=== PATIENT | female | born 1940 | race Caucasian/White ===

== ENCOUNTER 2021-02-19 05:59 | Inpatient (IN) | payer MEDICARE, BC ==
[2021-02-19] MEDS ORDERED: IBUPROFEN 600 MG TAB PO STA (06:29)
[2021-02-19] MEDS ORDERED: ACETAMINOPHEN TAB 500 MG TAB PO STA (06:29)
--- NOTE | 2021-02-19 06:34 | ED ---
General Adult HPI <DequanNaif - Last Filed: 02/19/21 08:28> - General Source: EMS Mode of arrival: EMS Limitations: no limitations <Tee Diop - Last Filed: 02/19/21 08:45> - General Chief complaint: Weakness Stated complaint: Fever, weakness Time Seen by Provider: 02/19/21 06:11 - History of Present Illness Initial comments: 80 year old F with PMH HTN HLD presents to the ER for weakness. Patient states she woke up this morning and was feeling more weak than normal. States she also feels very cold. Patient has not taken any medications. Patient does admit to some nausea but denies vomiting or abdominal pain. Patient denies cough congestion sore throat. Patient did get her COVID vaccine. Patient denies any other symptoms such as CP, SOB, MEDINA. (Tee Diop) - Related Data Home Medications Medication Instructions Recorded Confirmed Aspirin 81 mg PO DAILY 03/13/16 06/08/16 Ergocalciferol [Vitamin D2] 50,000 unit PO Q14D 03/13/16 06/08/16 lisinopriL [Zestril] 10 mg PO DAILY 03/13/16 06/08/16 Meclizine [Antivert] 12.5 mg PO BID PRN 04/14/16 06/08/16 Magnesium Oxide 500 mg PO DAILY 06/02/16 06/08/16 Naproxen Sodium [Aleve] 220 mg PO BID PRN 06/02/16 06/02/16 Pravastatin Sodium [Pravachol] 10 mg PO DAILY 06/02/16 06/08/16 Previous Rx's Medication Instructions Recorded Spironolactone [Aldactone] 25 mg PO DAILY #1 tablet 04/17/16 Metoprolol Succinate (ER) [Toprol 25 mg PO DAILY #30 tab 06/09/16 XL] Allergies Allergy/AdvReac Type Severity Reaction Status Date / Time Penicillins Allergy Rash/Hives Verified 02/19/21 06:10 metal Allergy pain(had Uncoded 02/19/21 06:10 reaction to knee implant) Review of Systems ROS Other: All systems not noted in ROS Statement are negative. <Naif Baires - Last Filed: 02/19/21 08:28> ROS Other: All systems not noted in ROS Statement are negative. <Tee Diop - Last Filed: 02/19/21 08:45> ROS Statement: Those systems with pertinent positive or pertinent negative responses have been documented in the HPI. Past Medical History Past Medical History: Coronary Artery Disease (CAD), Hyperlipidemia, Hypert ension, Osteoarthritis (OA) Additional Past Medical History / Comment(s): UTI's, see Dr Spears H & P, Menjeanettere's Disease History of Any Multi-Drug Resistant Organisms: None Reported Past Surgical History: Breast Surgery, Cardiac Ablation, Coronary Bypass/CABG, Heart Catheterization, Hysterectomy, Joint Replacement, Orthopedic Surgery Additional Past Surgical History / Comment(s): cataracts removed, left knee replaced, arthroscopy knee, bilateral shoulder surg., heel spur removed, breast reduction, double bypass, blepharoplasty,3rd digit lt hand repair Past Anesthesia/Blood Transfusion Reactions: Motion Sickness, Postoperative Nausea & Vomiting (PONV) Additional Past Anesthesia/Blood Transfusion Reaction / Comment(s): no problems with prior blood transfusion. Past Psychological History: No Psychological Hx Reported Past Alcohol Use History: None Reported Past Drug Use History: None Reported - Past Family History Sister(s) Family Medical History: Cancer Mother Family Medical History: Coronary Artery Disease (CAD), Diabetes Mellitus Father Family Medical History: Coronary Artery Disease (CAD) Brother(s) Family Medical History: Myocardial Infarction (VT) Additional Family Medical History / Comment(s): with VT <Tee Diop - Last Filed: 02/19/21 08:45> General Exam Limitations: no limitations General appearance: alert Head exam: Present: atraumatic Eye exam: Present: normal appearance, PERRL, EOMI. Absent: scleral icterus ENT exam: Present: normal exam, mucous membranes moist Neck exam: Present: normal inspection, full ROM. Absent: tenderness Respiratory exam: Present: normal lung sounds bilaterally. Absent: respiratory distress, wheezes Cardiovascular Exam: Present: regular rate, normal rhythm, normal heart sounds GI/Abdominal exam: Present: soft, normal bowel sounds. Absent: distended, t enderness Neurological exam: Present: alert <Tee Diop - Last Filed: 02/19/21 08:45> Course <Naif Baires - Last Filed: 02/19/21 08:28> Vital Signs 02/19/21 02/19/21 02/19/21 06:00 07:19 08:06 Temperature 102 F H 99.1 F Pulse Rate 103 H 94 84 Respiratory 18 20 20 Rate Blood Pressure 161/79 143/75 124/64 O2 Sat by Pulse 92 L 98 96 Oximetry - Reevaluation(s) Reevaluation #1: 02/19/21 08:28 Page supervision I did personally evaluate the patient she did present with complaint weakness. Clinical evidence of some dehydration she does have evidence on x-ray of right lower lobe infiltrate as well as urinary tract inf ection. He admitted I do agree with the assessment and plan. (Naif Baires) Medical Decision Making - Lab Data Result diagrams: 02/19/21 06:36 02/19/21 06:36 <Naif Baires - Last Filed: 02/19/21 08:28> - Lab Data Result diagrams: 02/19/21 06:36 02/19/21 06:36 <Tee Diop - Last Filed: 02/19/21 08:45> - Medical Decision Making Vitals reveal fever of 102 with reflexive tachycardia. EKG does show prolongted QTc of 532. Laboratory evaluation revealed hypomag which was replaced IV. Patient also noted to have UTI with + nitrites. no previous urine cx here, will start pt on rocephin IV and obtain urine and blood cxs. Chest XR also reveals a right sided PNA. Pt does admit to phlegm in her throat, maybe a slight cough. COVID negative. doxycycline added given azithromycin is contraindicated secondary to prolong qt. Patient will be admitted to Dr Smart with tele for cardiology consultation and IV antibiotics. It does appear pt has had prolonged QTc in the past and her stolol was decreased at that time, however I am unable to obtain a copy of current medications as pharmacy/dr office has not opened yet and patient does not have med list with her. (Tee Diop) - Lab Data Lab Results 02/19/21 02/19/21 02/19/21 Range/Units 06:36 06:36 06:36 WBC 7.3 (3.8-10.6) k/uL RBC 3.06 L (3.80-5.40) m/uL Hgb 10.0 L (11.4-16.0) gm/dL Hct 29.7 L (34.0-46.0) % MCV 97.2 (80.0-100.0) fL MCH 32.8 (25.0-35.0) pg MCHC 33.8 (31.0-37.0) g/dL RDW 14.6 (11.5-15.5) % Plt Count 162 (150-450) k/uL MPV 8.9 Neutrophils % (Manual) 82 % Band Neuts % (Manual) 15 % Lymphocytes % (Manual) 3 % Monocytes % (Manual) 1 % Eosinophils % (Manual) 1 % Neutrophils # (Manual) 7.00 (1.3-7.7) k/uL Lymphocytes # (Manual) 0.22 L (1.0-4.8) k/uL Monocytes # (Manual) 0.07 (0-1.0) k/uL Eosinophils # (Manual) 0.07 (0-0.7) k/uL Nucleated RBCs 0 (0-0) /100 WBC Manual Slide Review Performed PT 11.0 (9.0-12.0) sec INR 1.0 (<1.2) APTT 22.6 (22.0-30.0) sec Sodium (137-145) mmol/L Potassium (3.5-5.1) mmol/L Chloride (98-107) mmol/L Carbon Dioxide (22-30) mmol/L Anion Gap mmol/L BUN (7-17) mg/dL Creatinine (0.52-1.04) mg/dL Est GFR (CKD-EPI)AfAm (>60 ml/min/1.73 sqM) Est GFR (CKD-EPI)NonAf (>60 ml/min/1.73 sqM) Glucose (74-99) mg/dL Plasma Lactic Acid Josiah (0.7-2.0) mmol/L Calcium (8.4-10.2) mg/dL Magnesium (1.6-2.3) mg/dL Total Bilirubin (0.2-1.3) mg/dL AST (14-36) U/L ALT (4-34) U/L Alkaline Phosphatase (38-126) U/L Total Protein (6.3-8.2) g/dL Albumin (3.5-5.0) g/dL Urine Color Light Yellow Urine Appearance Cloudy H (Clear) Urine pH 6.0 (5.0-8.0) Ur Specific Ashburn 1.014 (1.001-1.035) Urine Protein 2+ H (Negative) Urine Glucose (UA) Negative (Negative) Urine Ketones Negative (Negative) Urine Blood Small H (Negative) Urine Nitrite Positive H (Negative) Urine Bilirubin Negative (Negative) Urine Urobilinogen <2.0 (<2.0) mg/dL Ur Leukocyte Esterase Large H (Negative) Urine RBC 16 H (0-5) /hpf Urine WBC >182 H (0-5) /hpf Urine WBC Clumps Occasional H (None) /hpf Urine Bacteria Few H (None) /hpf Coronavirus (PCR) (Not Detectd) 02/19/21 02/19/21 02/19/21 Range/Units 06:36 06:36 06:36 WBC (3.8-10.6) k/uL RBC (3.80-5.40) m/uL Hgb (11.4-16.0) gm/dL Hct (34.0-46.0) % MCV (80.0-100.0) fL MCH (25.0-35.0) pg MCHC (31.0-37.0) g/dL RDW (11.5-15.5) % Plt Count (150-450) k/uL MPV Neutrophils % (Manual) % Band Neuts % (Manual) % Lymphocytes % (Manual) % Monocytes % (Manual) % Eosinophils % (Manual) % Neutrophils # (Manual) (1.3-7.7) k/uL Lymphocytes # (Manual) (1.0-4.8) k/uL Monocytes # (Manual) (0-1.0) k/uL Eosinophils # (Manual) (0-0.7) k/uL Nucleated RBCs (0-0) /100 WBC Manual Slide Review PT (9.0-12.0) sec INR (<1.2) APTT (22.0-30.0) sec Sodium 137 (137-145) mmol/L Potassium 4.3 (3.5-5.1) mmol/L Chloride 109 H (98-107) mmol/L Carbon Dioxide 18 L (22-30) mmol/L Anion Gap 10 mmol/L BUN 26 H (7-17) mg/dL Creatinine 1.12 H (0.52-1.04) mg/dL Est GFR (CKD-EPI)AfAm 53 (>60 ml/min/1.73 sqM) Est GFR (CKD-EPI)NonAf 46 (>60 ml/min/1.73 sqM) Glucose 136 H (74-99) mg/dL Plasma Lactic Acid Josiah 1.6 (0.7-2.0) mmol/L Calcium 9.1 (8.4-10.2) mg/dL Magnesium 1.5 L (1.6-2.3) mg/dL Total Bilirubin 0.8 (0.2-1.3) mg/dL AST 29 (14-36) U/L ALT 11 (4-34) U/L Alkaline Phosphatase 92 (38-126) U/L Total Protein 6.2 L (6.3-8.2) g/dL Albumin 3.7 (3.5-5.0) g/dL Urine Color Urine Appearance (Clear) Urine pH (5.0-8.0) Ur Specific Ashburn (1.001-1.035) Urine Protein (Negative) Urine Glucose (UA) (Negative) Urine Ketones (Negative) Urine Blood (Negative) Urine Nitrite (Negative) Urine Bilirubin (Negative) Urine Urobilinogen (<2.0) mg/dL Ur Leukocyte Esterase (Negative) Urine RBC (0-5) /hpf Urine WBC (0-5) /hpf Urine WBC Clumps (None) /hpf Urine Bacteria (None) /hpf Coronavirus (PCR) (Not Detectd) 02/19/21 Range/Units 07:03 WBC (3.8-10.6) k/uL RBC (3.80-5.40) m/uL Hgb (11.4-16.0) gm/dL Hct (34.0-46.0) % MCV (80.0-100.0) fL MCH (25.0-35.0) pg MCHC (31.0-37.0) g/dL RDW (11.5-15.5) % Plt Count (150-450) k/uL MPV Neutrophils % (Manual) % Band Neuts % (Manual) % Lymphocytes % (Manual) % Monocytes % (Manual) % Eosinophils % (Manual) % Neutrophils # (Manual) (1.3-7.7) k/uL Lymphocytes # (Manual) (1.0-4.8) k/uL Monocytes # (Manual) (0-1.0) k/uL Eosinophils # (Manual) (0-0.7) k/uL Nucleated RBCs (0-0) /100 WBC Manual Slide Review PT (9.0-12.0) sec INR (<1.2) APTT (22.0-30.0) sec Sodium (137-145) mmol/L Potassium (3.5-5.1) mmol/L Chloride (98-107) mmol/L Carbon Dioxide (22-30) mmol/L Anion Gap mmol/L BUN (7-17) mg/dL Creatinine (0.52-1.04) mg/dL Est GFR (CKD-EPI)AfAm (>60 ml/min/1.73 sqM) Est GFR (CKD-EPI)NonAf (>60 ml/min/1.73 sqM) Glucose (74-99) mg/dL Plasma Lactic Acid Josiah (0.7-2.0) mmol/L Calcium (8.4-10.2) mg/dL Magnesium (1.6-2.3) mg/dL Total Bilirubin (0.2-1.3) mg/dL AST (14-36) U/L ALT (4-34) U/L Alkaline Phosphatase (38-126) U/L Total Protein (6.3-8.2) g/dL Albumin (3.5-5.0) g/dL Urine Color Urine Appearance (Clear) Urine pH (5.0-8.0) Ur Specific Ashburn (1.001-1.035) Urine Protein (Negative) Urine Glucose (UA) (Negative) Urine Ketones (Negative) Urine Blood (Negative) Urine Nitrite (Negative) Urine Bilirubin (Negative) Urine Urobilinogen (<2.0) mg/dL Ur Leukocyte Esterase (Negative) Urine RBC (0-5) /hpf Urine WBC (0-5) /hpf Urine WBC Clumps (None) /hpf Urine Bacteria (None) /hpf Coronavirus (PCR) Not Detected (Not Detectd) Disposition <Naif Baires - Last Filed: 02/19/21 08:28> Is patient prescribed a controlled substance at d/c from ED?: No Time of Disposition: 08:14 <Tee Diop - Last Filed: 02/19/21 08:45> Clinical Impression: UTI (urinary tract infection), Fever, Pneumonia, Hypomagnesemia, Prolonged QT interval Disposition: ADMITTED IP TO THIS HOSP Referrals: Lee Smart MD [Primary Care Provider] - 1-2 days
[2021-02-19 06:50] LABS: HCT 29.7 % (34.0-46.0); MCH 32.8 pg (25.0-35.0); MCHC 33.8 g/dL (31.0-37.0); MCV 97.2 fL (80.0-100.0); Mean Platelet Volume 8.9; Platelet Count 162 k/uL (150-450); RBC 3.06 m/uL (3.80-5.40); RDW 14.6 % (11.5-15.5); WBC 7.3 k/uL (3.8-10.6)
[2021-02-19 07:00] LABS: Albumin 3.7 g/dL (3.5-5.0); Calcium 9.1 mg/dL (8.4-10.2); Potassium 4.3 mmol/L (3.5-5.1); Total Bilirubin 0.8 mg/dL (0.2-1.3); Total Protein 6.2 g/dL (6.3-8.2)
[2021-02-19] MEDS: SODIUM CHLORIDE 0.9% 500 ML 500 ML IV SCH ×2 (07:01→07:57)
[2021-02-19 07:06] LABS: Partial Thromboplastin Time 22.6 sec (22.0-30.0)
[2021-02-19 07:21] LABS: Band Neutrophils % 15 %; Eosinophils # (M) 0.07 k/uL (0-0.7); Lymphocytes # (M) 0.22 k/uL (1.0-4.8); Monocytes # (M) 0.07 k/uL (0-1.0); Neutrophils % (M) 82 %; Nucleated Red Blood Cells 0 /100 WBC (0-0); Total Cells Counted 200
[2021-02-19 07:32] LABS: Appearance,Urine Cloudy (Clear); Bacteria,Urine Few /hpf; Bilirubin,Urine Negative (Negative); Blood,Urine Small (Negative); Color,Urine Light Yellow; Glucose,Urine (UA) Negative (Negative); Ketones,Urine Negative (Negative); Leukocyte Esterase,Urine Large (Negative); Nitrite,Urine Positive (Negative); Protein,Urine 2+ (Negative); RBC,Urine 16 /hpf (0-5); Specific Gravity,Urine 1.014 (1.001-1.035); Urobilinogen,Urine <2.0 mg/dL (<2.0); WBC,Urine >182 /hpf (0-5)
[2021-02-19] MEDS ORDERED: MAGNESIUM SULFATE-D5W PMX 1 GM in DEXTROSE/WATER 1 100ML.BAG IVPB ONE (07:44)
[2021-02-19] MEDS ORDERED: cefTRIAXone IN SWFI 1,000 MG/10 ML SYRINGE IVP STA (07:44)
--- NOTE | 2021-02-19 08:06 | XR ---
EXAMINATION TYPE: XR chest 2V DATE OF EXAM: 02/19/2021 COMPARISON: 05/13/2017 TECHNIQUE: PA and lateral views submitted. HISTORY: Fever FINDINGS: A patchy interstitial infiltrate with more area of localized consolidation right midlung. Postoperati ve change with mild cardiomegaly. No pneumothorax or pleural effusion. Arthropathy of the shoulders a nd hypertrophic change of the spine. IMPRESSION: 1. Interstitial infiltrates with more localized nodular area of consolidation right midlung. Could re present developing superimposed consolidative pneumonia. Underlying neoplasm not excluded follow-up t o resolution.
[2021-02-19] MEDS ORDERED: AZITHROMYCIN 500 MG in SODIUM CHLORIDE 0.9% 250 ML IVPB STA (08:07)
[2021-02-19] MEDS ORDERED: NALOXONE 0.4 MG/ML 1 ML VIAL IV PRN (08:19)
[2021-02-19] MEDS ORDERED: PNEUMONIA PROTOCOL UTILIZED 1 EACH MISC PO PRN (08:21)
[2021-02-19] MEDS ORDERED: DOXYCYCLINE 100 MG in SODIUM CHLORIDE 0.9% 100 ML IVPB STA (08:43)
[2021-02-19] MEDS: SODIUM CHLORIDE 0.9% 1,000 ML IV SCH ×2 (08:45→21:11)
[2021-02-19] MEDS: MELOXICAM 7.5 MG TAB PO SCH (11:25)
[2021-02-19] MEDS: METOPROLOL TARTRATE 25 MG TAB PO SCH ×2 (11:25→17:12)
--- NOTE | 2021-02-19 13:37 | P.CRDCN ---
History of Present Illness History of present illness: HISTORY OF PRESENTING ILLNESS This is a pleasant 80-year-old female past medical history significant for coronary artery disease status post CABG 1999, ventricular tachycardia status post radiofrequency ablation in 2016, hyperlipidemia, hypertension. She follows in the office with Dr. Weiner. We have been asked to see in consultation for prolonged QT. Patient seen and examined in the emergency department. Patient presents emergency department with complaints of chills, generalized weakness, and nausea. Patient states she has just been feeling "awful" for 1 day. Her symptoms started yesterday evening, she was playing cards with friends and started to feel extremely cold and shaky. She states her symptoms worsened overnight and she woke up last night with worsening chills and generalized weakness. She also had nausea and dry heaving and decided to present to the emergency department. She denies any chest pain, palpitations, lightheadedness, dizziness, syncope. She does occasionally get short of breath at night and has woken up short of breath a few days over the past 2 weeks. She also gets tired after long walks, and dyspnea on exertion which is not new for her. She also endorses increased stress at home, her daughter recently had a stroke and her recently had valve surgery and just returned home. Admission patient's temperature 102F, blood pressure 161/79, heart rate 103, oxygen saturation is 92% on room air. DIAGNOSTICS EKG reveals sinus rhythm, heart rate 94, some ST depresion in leads V5 and V6. QT 426. Most recent cardiac catheterization 02/2016 revealed moderate disease in RCA. The circumflex and mid LAD are occluded with a WOMACK to LAD which is patent and free radial artery graft to circumflex is patent. Medical therapy was advised at this time. Most recent echocardiogram 01/2020 revealed a 50%, concentric LVH, mild right ventricular enlargement and mild aortic insufficiency. Most recent stress test or 01/2019 Lexiscan which was negative for stress-induced ischemia. Apical septal fixed defect. Chest xray interstitial infiltrates with more localized nodule area consolidation right mid lung. Could represent developing superimposed co nsolidative pneumonia. Laboratory reviewed, WBC 7.3, hemoglobin 10, platelets 162, sodium 137, potas sium 4.3, BUN 26, serum creatinine 1.12, magnesium 1.5, UA positive for UTI, COVID-19 negative. Current home cardiac medications include Toprol tartrate 25 mg twice daily, lisinopril 10 mg daily, [id number] mg daily REVIEW OF SYSTEMS At the time of my exam: CONSTITUTIONAL: +chills +fever CARDIOVASCULAR: Denies chest pain, shortness of breath, orthopnea, PND or palpitations. RESPIRATORY: Denies cough. GASTROINTESTINAL: +nausea Denies abdominal pain, diarrhea, constipation, vomiting. MUSCULOSKELETAL: Denies myalgias. NEUROLOGIC: Denies numbness, tingling, headacbe or weakness. ENDOCRINE: Denies fatigue, weight change, polydipsia or polyurina. GENITOURINARY: Denies burning, hematuria or urgency with micturation. HEMATOLOGIC: Denies history of anemia or bleeding. PHYSICAL EXAMINATION Blood pressure 106/56 heart rate heart rate 65 afebrile and maintaining oxygen saturation on 2 L nasal cannula CONSTITUTIONAL: No apparent distress. HEENT: Head is normocephalic. Pupils are equal, round. Sclerae anicteric. Mucous membranes of the mouth are moist. No JVD. No carotid bruit. CHEST EXAMINATION: Lungs are clear to auscultation. No chest wall tenderness is noted on palpation or with deep breathing. HEART EXAMINATION: Regular rate and rhythm. S1, S2 heard. No murmurs, gallops or rub. ABDOMEN: Soft, nontender. Positive bowel sounds. EXTREMITIES: 2+ peripheral pulses, no lower extremity edema and no calf tenderness. NEUROLOGIC EXAMINATION: Patient is awake, alert and oriented x3. ASSESSMENT Pronlonged QT Acute Kidney Injury Urinary tract infection Hypomagnesemia History of coronary artery disease s/p CABG in 1999 History of ventricular tachycardia status post ablation in 2016 Dyslipidemia History of hypertension PLAN Replace magnesium ACEI on hold due to DAVID Hold prolonged QT medications. Continue Home Cardiac Medications. Monitor QT after magnesium supplementation. Nurse Practitioner note has been reviewed, I agree with a documented findings and plan of care. Patient was seen and examined. Past Medical History Past Medical History: Coronary Artery Disease (CAD), Hyperlipidemia, Hypertension, Osteoarthritis (OA) Additional Past Medical History / Comment(s): UTI's, see Dr Spears H & P, Nelli's Disease History of Any Multi-Drug Resistant Organisms: None Reported Past Surgical History: Breast Surgery, Cardiac Ablation, Coronary Bypass/CABG, Heart Catheterization, Hysterectomy, Joint Replacement, Orthopedic Surgery Additional Past Surgical History / Comment(s): cataracts removed, left knee replaced, arthroscopy knee, bilateral shoulder surg., heel spur removed, breast reduction, double bypass, blepharoplasty,3rd digit lt hand repair Past Anesthesia/Blood Transfusion Reactions: Motion Sickness, Postoperative Nausea & Vomiting (PONV) Additional Past Anesthesia/Blood Transfusion Reaction / Comment(s): no problems with prior blood transfusion. Past Psychological History: No Psychological Hx Reported Past Alcohol Use History: None Reported Past Drug Use History: None Reported - Past Family History Sister(s) Family Medical History: Cancer Mother Family Medical History: Coronary Artery Disease (CAD), Diabetes Mellitus Father Family Medical History: Coronary Artery Disease (CAD) Brother(s) Family Medical History: Myocardial Infarction (VT) Additional Family Medical History / Comment(s): with VT Medications and Allergies Home Medications Medication Instructions Recorded Confirmed Type lisinopriL [Zestril] 10 mg PO DAILY 03/13/16 02/19/21 History Meclizine [Antivert] 12.5 mg PO TID PRN 04/14/16 02/19/21 History Meloxicam [Mobic] 15 mg PO DAILY 02/19/21 02/19/21 History Metoprolol Tartrate [Lopressor] 25 mg PO BID-W/MEALS 02/19/21 02/19/21 History Pantoprazole Sodium [Protonix] 40 mg PO DAILY 02/19/21 02/19/21 History Rosuvastatin [Crestor] 10 mg PO DAILY 02/19/21 02/19/21 History Ubidecarenone [Co Q-10] 200 mg PO DAILY 02/19/21 02/19/21 History Allergies Allergy/AdvReac Type Severity Reaction Status Date / Time Penicillins Allergy Rash/Hives Verified 02/19/21 09:28 metal Allergy pain(had Uncoded 02/19/21 09:28 reaction to knee implant) Physical Exam Vitals: Vital Signs Temp Pulse Resp BP Pulse Ox 02/19/21 09:11 80 20 121/58 96 02/19/21 08:06 99.1 F 84 20 124/64 96 02/19/21 07:19 94 20 143/75 98 02/19/21 06:00 102 F H 103 H 18 161/79 92 L Intake and Output 02/18/21 02/19/21 02/19/21 22:59 06:59 14:59 Other: Weight 84.368 kg Results 02/19/21 06:36 02/19/21 06:36 Cardiac Enzymes 02/19/21 Range/Units 06:36 AST 29 (14-36) U/L Coagulation 02/19/21 Range/Units 06:36 PT 11.0 (9.0-12.0) sec APTT 22.6 (22.0-30.0) sec CBC 02/19/21 Range/Units 06:36 WBC 7.3 (3.8-10.6) k/uL RBC 3.06 L (3.80-5.40) m/uL Hgb 10.0 L (11.4-16.0) gm/dL Hct 29.7 L (34.0-46.0) % Plt Count 162 (150-450) k/uL Comprehensive Metabolic Panel 02/19/21 Range/Units 06:36 Sodium 137 (137-145) mmol/L Potassium 4.3 (3.5-5.1) mmol/L Chloride 109 H (98-107) mmol/L Carbon Dioxide 18 L (22-30) mmol/L BUN 26 H (7-17) mg/dL Creatinine 1.12 H (0.52-1.04) mg/dL Glucose 136 H (74-99) mg/dL Calcium 9.1 (8.4-10.2) mg/dL AST 29 (14-36) U/L ALT 11 (4-34) U/L Alkaline Phosphatase 92 (38-126) U/L Total Protein 6.2 L (6.3-8.2) g/dL Albumin 3.7 (3.5-5.0) g/dL Current Medications Generic Name Dose Route Start Last Admin Trade Name Freq PRN Reason Stop Dose Admin Acetaminophen 650 mg 02/19/21 08:19 Acetaminophen Tab 325 Mg Tab PO Q6HR PRN Mild Pain or Fever > 100.5 Sodium Chloride 1,000 mls @ 75 mls/hr 02/19/21 08:30 02/19/21 08:45 Saline 0.9% IV 75 mls/hr .[id number] ALEX Administration Ceftriaxone Sodium 2 gm/ 50 mls @ 100 mls/hr 02/20/21 09:00 Sodium Chloride IVPB Q24HR ALEX Doxycycline Hyclate 100 mg/ 100 mls @ 100 mls/hr 02/19/21 21:00 Sodium Chloride IVPB Q12HR ALEX Lisinopril 10 mg 02/20/21 09:00 Lisinopril 10 Mg Tab PO DAILY ALEX Meclizine HCl 12.5 mg 02/19/21 10:09 Meclizine 25 Mg Tab PO TID PRN Vertigo Metoprolol Tartrate 25 mg 02/19/21 10:15 Metoprolol Tartrate 50 Mg Tab PO BID-W/MEALS ALEX Miscellaneous Information 1 each 02/19/21 08:21 Pneumonia Protocol Utilized 1 Each Misc PO ONCE PRN Per Protocol Naloxone HCl 0.2 mg 02/19/21 08:19 Naloxone 0.4 Mg/Ml 1 Ml Vial IV Q2M PRN Opioid Reversal Non-Formulary Medication 15 mg 02/19/21 10:15 Meloxicam [Mobic] PO DAILY ALEX Non-Formulary Medication 10 mg 02/20/21 09:00 Rosuvastatin PO DAILY [facility] Pantoprazole Sodium 40 mg 02/20/21 09:00 Pantoprazole 40 Mg Tablet PO DAILY ALEX Intake and Output 02/18/21 02/19/21 02/19/21 22:59 06:59 14:59 Other: Weight 84.368 kg 02/19/21 06:36 02/19/21 06:36
--- NOTE | 2021-02-19 14:05 | P.HPIM ---
History of Present Illness H&P Date: 02/19/21 HISTORY OF PRESENT ILLNESS This is an 80-year-old female patient of Dr. Smart and Dr. MARIE Weiner with past medical history of coronary artery disease status post CABG 1999, ventricular tachycardia status post radiofrequency ablation in 2016, hyperlipidemia, hypertension, generalized osteoarthritis. Patient complains of shortness of breath that started yesterday along with chills and rigors. She states she has a little dysuria, occasional shortness of breath at night for the past week. She denies having any chest pain, lightheadedness or dizziness. Patient's recently underwent valvular heart surgery in [place]. Patient has no history of asthma or COPD. Patient presented to [facility] emergency center. She was found to be febrile at 102, heart rate 103, blood pressure 161/79, pulse ox 92% on room air. WBC 7.3, hemoglobin 10, platelet count 162. INR 1.0. Sodium 137, potassium 4.3, chloride 109, CO2 18 BUN 26 and creatinine 1.12. Blood sugar 136. Liver function tests were normal. Magnesium 1.5 and was replaced in the emergency center. Urinalysis cloudy, nitrate positive, leukoesterase large, WBC greater than 182. Coronavirus PCR not detected. Chest x-ray shows interstitial infiltrates with more localized nodular area of consolidation in the right midlung. Could represent developing superimposed consolidative pneumonia. Underlying neoplasm excluded follow-up to resolution. Patient was started on azithromycin but due to QT prolongation this was discontinued and patient started on Rocephin and IV doxycycline. Cardiology consult was added for prolonged QT. REVIEW OF SYSTEMS Constitutional: Reports fever, Reports chills, Reports night sweats. No weight change. No weakness,Reports fatigue No lethargy. No daytime sleepiness. EENT: No headache. No blurred vision or double vision, no loss of vision. No loss of Hearing, no ringing in the ears, no dizziness. No nasal drainage or congestion. No epistaxis. No sore throat. Lungs: Reports shortness of breath, cough, no sputum production. No wheezing. Cardiovascular: No chest pain, no lower extremity edema. No palpitations. No paroxysmal nocturnal dyspnea. No orthopnea. No lightheadedness or dizziness. No syncopal episodes. Abdominal: No abdominal pain. No nausea, vomiting. No diarrhea. No constipation. No bloody or tarry stools.. No loss of appetite. Genitourinary: Reports dysuria, increased frequency, urgency. No urinary retention. Musculoskeletal: No myalgias. No muscle weakness, no gait dysfunction, no frequent falls. No back pain. No neck pain. Integumentary: No wounds, no lesions. No rash or pruritus. No unusual bruising. No change in hair or nails. Neurologic: No aphasia. No facial droop. No change in mentation. No head injury. No headache. No paralysis. No paresthesia. Psychiatric: No depression. No anxiety. No mood swings. Endocrine: No abnormal blood sugars. No weight change. No excessive sweating or thirst. No cold intolerance. MEDICAL HISTORY Coronary artery disease Ventricular tachycardia Hypertension Hyperlipidemia Generalized osteoarthritis Mnire's disease SURGICAL HISTORY Two-vessel CABG Cardiac catheterization Cardiac ablation Back surgery Hysterectomy Cataract removal and intraocular lens implants Breast reduction Blepharoplasty Left knee replacement Bilateral shoulder surgery Heel spur removal SOCIAL HISTORY Patient is lifelong nonsmoker, no alcohol use, marijuana or illicit drug use. She does not use oxygen or nebulizer. Patient does have a walker at home. She lives at home with her . FAMILY HISTORY Father at age 70 from coronary artery disease. Mother at age 62 from coronary artery disease. Patient has one sister alive in her 90s with no major medical problems. Patient has 1 brother that passed at age 64 from heart disease. Patient has 2 children with no major medical problems. PHYSICAL EXAMINATION Gen: This is an 80-year-old obese female. Patient is resting on the ear structure and appears to be comfortable and in no acute distress. HEENT: Head is atraumatic, normocephalic. Pupils equal, round. Sclerae is anicteric. NECK: Supple. No JVD. No lymphadenopathy. No thyromegaly. LUNGS: Clear to auscultation. No wheezes or rhonchi. No intercostal retractions. HEART: Regular rate and rhythm. No murmur. ABDOMEN: Soft. Bowel sounds are present. No masses. No tenderness. EXTREMITIES: No pedal edema. No calf tenderness. Dorsalis pedis +2 bilaterally. NEUROLOGICAL: Patient is awake, alert and oriented x3. Cranial nerves 2 through 12 are grossly intact. ASSESSMENT AND PLAN 1. Sepsis secondary to combination of right sided pneumonia and urinary tract infection. Continue IV antibiotics the form of ceftriaxone and doxycycline, blood culture, urine culture, follow-up chest x-ray, Tylenol as needed for pain and fever. 2. Metabolic acidosis secondary to sepsis. Patient is status post 500 mL bolus, continue IV fluids at 75 mL/h, recheck lab work in the morning 3. QT prolongation. Cardiology consult appreciated. 4. Hypomagnesemia. Status post replacement 5. Acute kidney injury. Continue IV fluids, avoid nephrotoxic agents, avoid hypotension. 6. Hypertension. Continue lisinopril 10 mg daily, Lopressor 25 mg twice daily. 7. History of coronary artery disease status post CABG. Continue Lopressor, Lipitor. 8. Hyperlipidemia. Continue atorvastatin 20 mg daily. 9. Gastroesophageal reflux disease. Continue Protonix. 10. DVT prophylaxis. Heparin subcu. Patient will be admitted to the hospital for a minimum of 2 night stay. DISCHARGE PLAN Home. Impression and plan of care have been directed as dictated by the signing physician. Krissy Sol nurse practitioner acting as scribe for signing physician. Past Medical History Past Medical History: Coronary Artery Disease (CAD), Hyperlipidemia, Hypertension, Osteoarthritis (OA) Additional Past Medical History / Comment(s): UTI's, [facility] History of Any Multi-Drug Resistant Organisms: None Reported Past Surgical History: Breast Surgery, Cardiac Ablation, Coronary Bypass/CABG, Heart Catheterization, Hysterectomy, Joint Replacement, Orthopedic Surgery Additional Past Surgical History / Comment(s): cataracts removed, left knee replaced, arthroscopy knee, bilateral shoulder surg., heel spur removed, breast reduction, double bypass, blepharoplasty,3rd digit lt hand repair Past Anesthesia/Blood Transfusion Reactions: Motion Sickness, Postoperative Nausea & Vomiting (PONV) Additional Past Anesthesia/Blood Transfusion Reaction / Comment(s): no problems with prior blood transfusion. Past Psychological History: No Psychological Hx Reported Past Alcohol Use History: None Reported Past Drug Use History: None Reported - Past Family History Sister(s) Family Medical History: Cancer Mother Family Medical History: Coronary Artery Disease (CAD), Diabetes Mellitus Father Family Medical History: Coronary Artery Disease (CAD) Brother(s) Family Medical History: Myocardial Infarction ([place]) Additional Family Medical History / Comment(s): with [place] Medications and Allergies Home Medications Medication Instructions Recorded Confirmed Type lisinopriL [Zestril] 10 mg PO DAILY 09/02/16 08/11/21 History Meclizine [Antivert] 12.5 mg PO TID PRN 04/14/16 02/19/21 History Meloxicam [Mobic] 15 mg PO DAILY 02/19/21 02/19/21 History Metoprolol Tartrate [Lopressor] 25 mg PO BID-W/MEALS 02/19/21 02/19/21 History Pantoprazole Sodium [Protonix] 40 mg PO DAILY 02/19/21 02/19/21 History Rosuvastatin [Crestor] 10 mg PO DAILY 02/19/21 02/19/21 History Ubidecarenone [Co Q-10] 200 mg PO DAILY 02/19/21 02/19/21 History Allergies Allergy/AdvReac Type Severity Reaction Status Date / Time Penicillins Allergy Rash/Hives Verified 02/19/21 09:28 metal Allergy pain(had Uncoded 02/19/21 09:28 reaction to knee implant) Physical Exam Vitals: Vital Signs Temp Pulse Resp BP Pulse Ox 02/19/21 09:11 80 20 121/58 96 02/19/21 08:06 99.1 F 84 20 124/64 96 02/19/21 07:19 94 20 143/75 98 02/19/21 06:00 102 F H 103 H 18 161/79 92 L Intake and Output 02/18/21 02/19/21 02/19/21 22:59 06:59 14:59 Other: Weight 84.368 kg Results CBC & Chem 7: 02/19/21 06:36 02/19/21 06:36 Labs: Abnormal Lab Results - Last 24 Hours (Table) 02/19/21 02/19/21 02/19/21 Range/Units 06:36 06:36 06:36 RBC 3.06 L (3.80-5.40) m/uL Hgb 10.0 L (11.4-16.0) gm/dL Hct 29.7 L (34.0-46.0) % Lymphocytes # (Manual) 0.22 L (1.0-4.8) k/uL Chloride 109 H (98-107) mmol/L Carbon Dioxide 18 L (22-30) mmol/L BUN 26 H (7-17) mg/dL Creatinine 1.12 H (0.52-1.04) mg/dL Glucose 136 H (74-99) mg/dL Magnesium (1.6-2.3) mg/dL Total Protein 6.2 L (6.3-8.2) g/dL Urine Appearance Cloudy H (Clear) Urine Protein 2+ H (Negative) Urine Blood Small H (Negative) Urine Nitrite Positive H (Negative) Ur Leukocyte Esterase Large H (Negative) Urine RBC 16 H (0-5) /hpf Urine WBC >182 H (0-5) /hpf Urine WBC Clumps Occasional H (None) /hpf Urine Bacteria Few H (None) /hpf 02/19/21 Range/Units 06:36 RBC (3.80-5.40) m/uL Hgb (11.4-16.0) gm/dL Hct (34.0-46.0) % Lymphocytes # (Manual) (1.0-4.8) k/uL Chloride (98-107) mmol/L Carbon Dioxide (22-30) mmol/L BUN (7-17) mg/dL Creatinine (0.52-1.04) mg/dL Glucose (74-99) mg/dL Magnesium 1.5 L (1.6-2.3) mg/dL Total Protein (6.3-8.2) g/dL Urine Appearance (Clear) Urine Protein (Negative) Urine Blood (Negative) Urine Nitrite (Negative) Ur Leukocyte Esterase (Negative) Urine RBC (0-5) /hpf Urine WBC (0-5) /hpf Urine WBC Clumps (None) /hpf Urine Bacteria (None) /hpf
[2021-02-19] MEDS: DOXYCYCLINE 100 MG in SODIUM CHLORIDE 0.9% 100 ML IVPB SCH (21:10)
[2021-02-19] MEDS: HEPARIN SODIUM,PORCINE/PF 5,000 UNIT/0.5 ML SYRINGE SQ SCH (21:11)
[2021-02-19] MEDS: MECLIZINE 12.5 MG TAB PO PRN (22:57)
--- NOTE | 2021-02-20 07:55 | XR ---
EXAMINATION TYPE: XR chest 2V DATE OF EXAM: 02/20/2021 COMPARISON: 02/19/2021 HISTORY: 80-year-old female pneumonia TECHNIQUE: PA and lateral views FINDINGS: Median sternotomy wires are present with post-CABG clips in mediastinum. Heart borderline enlarged. M ild interstitial prominence as a chronic appearance. Strandy atelectasis left base. No consolidation or pleural effusion. IMPRESSION: Borderline cardiomegaly. COPD. Interstitial changes are similar. Right midlung opacity has resolved.
[2021-02-20] MEDS: DOXYCYCLINE 100 MG in SODIUM CHLORIDE 0.9% 100 ML IVPB SCH ×2 (08:25→20:40)
[2021-02-20] MEDS: lisinopriL 10 MG TAB PO SCH (08:25)
[2021-02-20] MEDS: METOPROLOL TARTRATE 25 MG TAB PO SCH ×2 (08:25→17:18)
[2021-02-20] MEDS: ATORVASTATIN 20 MG TAB PO SCH (08:25)
[2021-02-20] MEDS: MELOXICAM 7.5 MG TAB PO SCH (08:25)
[2021-02-20] MEDS: HEPARIN SODIUM,PORCINE/PF 5,000 UNIT/0.5 ML SYRINGE SQ SCH ×2 (08:25→20:45)
[2021-02-20] MEDS: PANTOPRAZOLE 40 MG TABLET PO SCH (08:26)
[2021-02-20] MEDS ORDERED: AZITHROMYCIN 500 MG in SODIUM CHLORIDE 0.9% 250 ML IVPB SCH (09:00)
[2021-02-20] MEDS ORDERED: cefTRIAXone IN SWFI 1,000 MG/10 ML SYRINGE IVP SCH (09:00)
[2021-02-20 11:10] LABS: HCT 25.6 % (37.2-46.3); HGB 8.3 g/dL (12.0-15.0); MCH 32.4 pg (27.0-32.0); MCHC 32.4 g/dL (32.0-37.0); Mean Platelet Volume 11.9 fL (9.5-12.2); Platelet Count 137 X 10*3/uL (140-440); RBC 2.56 X 10*6/uL (4.10-5.20); RDW 15.5 % (11.5-14.5)
[2021-02-20] MEDS: SODIUM CHLORIDE 0.9% 1,000 ML IV SCH (12:32)
--- NOTE | 2021-02-20 12:55 | P.PN ---
Subjective Progress Note Date: 02/20/21 HISTORY OF PRESENT ILLNESS This is an 80-year-old female patient of Dr. Smart and Dr. MARIE Weiner with past medical history of coronary artery disease status post CABG 1999, ventricular tachycardia status post radiofrequency ablation in 2016, hyperlipidemia, hypertension, generalized osteoarthritis. Patient complains of shortness of breath that started yesterday along with chills and rigors. She states she has a little dysuria, occasional shortness of breath at night for the past week. She denies having any chest pain, lightheadedness or dizziness. Patient's recently underwent valvular heart surgery in [place]. Patient has no history of asthma or COPD. Patient presented to [facility] emergency center. She was found to be febrile at 102, heart rate 103, blood pressure 161/79, pulse ox 92% on room air. WBC 7.3, hemoglobin 10, platelet count 162. INR 1.0. Sodium 137, potassium 4.3, chloride 109, CO2 18 BUN 26 and creatinine 1.12. Blood sugar 136. Liver function tests were normal. Magnesium 1.5 and was replaced in the emergency center. Urinalysis cloudy, nitrate positive, leukoesterase large, WBC greater than 182. Coronavirus PCR not detected. Chest x-ray shows interstitial infiltrates with more localized nodular area of consolidation in the right midlung. Could represent developing superimposed consolidative pneumonia. Underlying neoplasm excluded follow-up to resolution. Patient was started on azithromycin but due to QT prolongation this was discontinued and patient started on Rocephin and IV doxycycline. Cardiology consult was added for prolonged QT. 02/20: Repeat chest x-ray reveals borderline cardiomegaly. COPD. Interstitial changes are similar. Right midlung opacities has resolved. Urine culture is finalized with E. coli. Patient states that she is feeling a lot better from yesterday. Repeat CBC reveals WBC of 13.7, hemoglobin 8.3, platelet count 137. Chemistry is pending. Patient has been seen by cardiology with recommendations to replace magnesium, hold ANDRÉS inhibitor and hold prolonged QT medications. Anticipate possible discharge home tomorrow. Now patient will be continued on doxycycline and Rocephin and she is also treated for pneumonia. REVIEW OF SYSTEMS Constitutional: Reports fever, Reports chills, Reports night sweats. No weight change. No weakness,Reports fatigue No lethargy. No daytime sleepiness. EENT: No headache. No blurred vision or double vision, no loss of vision. No loss of Hearing, no ringing in the ears, no dizziness. No nasal drainage or congestion. No epistaxis. No sore throat. Lungs: Reports shortness of breath-improved, cough, no sputum production. No wheezing. Cardiovascular: No chest pain, no lower extremity edema. No palpitations. No paroxysmal nocturnal dyspnea. No orthopnea. No lightheadedness or dizziness. No syncopal episodes. Abdominal: No abdominal pain. No nausea, vomiting. No diarrhea. No constipation. No bloody or tarry stools.. No loss of appetite. Genitourinary: Reports dysuria, increased frequency, urgency. No urinary retention. Musculoskeletal: No myalgias. No muscle weakness, no gait dysfunction, no frequent falls. No back pain. No neck pain. Integumentary: No wounds, no lesions. No rash or pruritus. No unusual bruising. No change in hair or nails. Neurologic: No aphasia. No facial droop. No change in mentation. No head injury. No headache. No paralysis. No paresthesia. Psychiatric: No depression. No anxiety. No mood swings. Endocrine: No abnormal blood sugars. No weight change. No excessive sweating or thirst. No cold intolerance. PHYSICAL EXAMINATION Gen: This is an 80-year-old obese female. Patient is resting on the ear structure and appears to be comfortable and in no acute distress. HEENT: Head is atraumatic, normocephalic. Pupils equal, round. Sclerae is anicteric. NECK: Supple. No JVD. No lymphadenopathy. No thyromegaly. LUNGS: Clear to auscultation. No wheezes or rhonchi. No intercostal retractions. HEART: Regular rate and rhythm. No murmur. ABDOMEN: Soft. Bowel sounds are present. No masses. No tenderness. EXTREMITIES: No pedal edema. No calf tenderness. Dorsalis pedis +2 bilaterally. NEUROLOGICAL: Patient is awake, alert and oriented x3. Cranial nerves 2 through 12 are grossly intact. ASSESSMENT AND PLAN 1. Sepsis secondary to combination of right sided pneumonia and urinary tract infection. Continue IV antibiotics the form of ceftriaxone and doxycycline, blood culture, urine culture, follow-up chest x-ray, Tylenol as needed for pain and fever. 2. Metabolic acidosis secondary to sepsis. Patient is status post 500 mL bolus, continue IV fluids at 75 mL/h, recheck lab work in the morning 3. QT prolongation. Cardiology consult appreciated. 4. Hypomagnesemia. Status post replacement 5. Acute kidney injury. Continue IV fluids, avoid nephrotoxic agents, avoid hypotension. 6. Hypertension. Continue lisinopril 10 mg daily, Lopressor 25 mg twice daily. 7. History of coronary artery disease status post CABG. Continue Lopressor, Lipitor. 8. Hyperlipidemia. Continue atorvastatin 20 mg daily. 9. Gastroesophageal reflux disease. Continue Protonix. 10. DVT prophylaxis. Heparin subcu. DISCHARGE PLAN Home on Wednesday. Impression and plan of care have been directed as dictated by the signing physician. Krissy Sol nurse practitioner acting as scribe for signing physician. Objective - Vital Signs Vital signs: Vital Signs Temp 98.3 F 02/20/21 07:04 Pulse 59 L 02/20/21 07:04 Resp 18 02/20/21 07:04 BP 146/59 02/20/21 07:04 Pulse Ox 97 02/20/21 07:04 Intake & Output 02/19/21 02/20/21 02/20/21 18:59 06:59 18:59 Weight 84.368 kg Other: # Voids 1 1 - Labs CBC & Chem 7: 02/20/21 06:37 02/19/21 06:36 Labs: Microbiology - Last 24 Hours (Table) 02/19/21 06:36 Blood Culture - Preliminary Blood No Growth after 24 hours 02/19/21 06:36 Blood Culture Gram Stain - Preliminary Blood Blood Culture - Preliminary Escherichia coli 02/19/21 06:36 Blood Culture - Final Blood 02/19/21 06:36 Urine Culture - Preliminary Urine,Voided
--- NOTE | 2021-02-20 13:55 | P.PN ---
Subjective Progress Note Date: 02/20/21 HISTORY OF PRESENT ILLNESS: This is a pleasant 80-year-old female past medical history significant for coronary artery disease status post CABG 1999, ventricular tachycardia status post radiofrequency ablation in 2016, hyperlipidemia, hypertension. She follows in the office with Dr. Weiner. We have been asked to see in consultation for prolonged QT. Patient seen and examined in the emergency department. Patient presents emergency department with complaints of chills, generalized weakness, and nausea. Patient states she has just been feeling "awful" for 1 day. Her symptoms started yesterday evening, she was playing cards with friends and started to feel extremely cold and shaky. She states her symptoms worsened overnight and she woke up last night with worsening chills and generalized weakness. She also had nausea and dry heaving and decided to present to the emergency department. She denies any chest pain, palpitations, lightheadedness, dizziness, syncope. She does occasionally get short of breath at night and has woken up short of breath a few days over the past 2 weeks. She also gets tired after long walks, and dyspnea on exertion which is not new for her. She also endorses increased stress at home, her daughter recently had a stroke and her recently had valve surgery and just returned home. Admission patient's temperature 102F, blood pressure 161/79, heart rate 103, oxygen saturation is 92% on room air. DIAGNOSTICS EKG reveals sinus rhythm, heart rate 94, some ST depresion in leads V5 and V6. QT 426. Most recent cardiac catheterization 02/2016 revealed moderate disease in RCA. The circumflex and mid LAD are occluded with a WOMACK to LAD which is patent and free radial artery graft to circumflex is patent. Medical therapy was advised at this time. Most recent echocardiogram 01/2020 revealed a 50%, concentric LVH, mild right ventricular enlargement and mild aortic insufficiency. Most recent stress test or 01/2019 Lexiscan which was negative for stress-induced ischemia. Apical septal fixed defect. Chest xray interstitial infiltrates with more localized nodule area consolidation right mid lung. Could represent developing superimposed consolidative pneumonia. Laboratory reviewed, WBC 7.3, hemoglobin 10, platelets 162, sodium 137, potassium 4.3, BUN 26, serum creatinine 1.12, magnesium 1.5, UA positive for UTI, COVID-19 negative. Current home cardiac medications include Toprol tartrate 25 mg twice daily, lisinopril 10 mg daily, [id number] mg daily 02/20/2021 Patient examined at the bedside with Dr. Landaverde. Patient denies chest pain or pressure. She currently denies shortness of breath. Telemetry reviewed revealing sinus mechanism. Vital signs are stable. PHYSICAL EXAM: VITAL SIGNS: Reviewed. GENERAL: Well-developed in no acute distress. NECK: Supple. No JVD or thyromegaly LUNGS: Respirations even and unlabored. Lungs essentially clear to auscultation bilaterally. HEART: Regular rate and rhythm. S1 and S2 heard. EXTREMITIES: Normal range of motion. No clubbing or cyanosis. Peripheral pulses intact. No lower extremity edema ASSESSMENT: Pneumonia Urinary tract infection Prolonged QT Acute Kidney Injury Hypomagnesemia History of coronary artery disease s/p CABG in 1999 History of ventricular tachycardia status post ablation in 2015 Dyslipidemia Hypertension PLAN: Patient is stable from a cardiac standpoint No further inpatient recommendations from a cardiology perspective We will sign off. Please reconsult if needed. Nurse practitioner note has been reviewed by physician. Signing provider agrees with the documented findings, assessment, and plan of care. Objective - Vital Signs Vital signs: Vital Signs Temp 98.3 F 02/20/21 07:04 Pulse 59 L 02/20/21 07:04 Resp 18 02/20/21 07:04 BP 146/59 02/20/21 07:04 Pulse Ox 97 02/20/21 07:04 Intake & Output 02/19/21 02/20/21 02/20/21 18:59 06:59 18:59 Weight 84.368 kg Other: # Voids 1 1 - Labs CBC & Chem 7: 02/20/21 06:37 02/19/21 06:36 Labs: Abnormal Lab Results - Last 24 Hours (Table) 02/20/21 Range/Units 06:37 WBC 13.70 H (4.50-10.00) X 10*3/uL RBC 2.56 L (4.10-5.20) X 10*6/uL Hgb 8.3 L (12.0-15.0) g/dL Hct 25.6 L (37.2-46.3) % MCV 100.0 H (80.0-97.0) fL MCH 32.4 H (27.0-32.0) pg RDW 15.5 H (11.5-14.5) % Plt Count 137 L (140-440) X 10*3/uL Plt Count Comment DECREASED A Microbiology - Last 24 Hours (Table) 02/19/21 06:36 Urine Culture - Preliminary Urine,Voided Gram Neg Bacilli 02/19/21 06:36 Blood Culture - Preliminary Blood No Growth after 24 hours 02/19/21 06:36 Blood Culture Gram Stain - Preliminary Blood Blood Culture - Preliminary Escherichia coli 02/19/21 06:36 Blood Culture - Final Blood
[2021-02-20 14:51] LABS: African American GFR (CKD) 54.1 (60.0-200.0); BUN/Creat Ratio 25.45 Ratio (12.00-20.00); Calcium 8.2 mg/dL (8.7-10.3); Carbon Dioxide 22.7 mmol/L (21.6-31.8); Non-African American GFR(CKD) 46.7 (60.0-200.0)
[2021-02-20 15:06] LABS: Anion Gap 6.3 mmol/L (4.00-12.00)
[2021-02-20] MEDS: ACETAMINOPHEN TAB 325 MG TAB PO PRN (15:44)
[2021-02-20] MEDS: MECLIZINE 12.5 MG TAB PO PRN (22:04)
[2021-02-21] MEDS: SODIUM CHLORIDE 0.9% 1,000 ML IV SCH ×2 (01:29→09:31)
[2021-02-21] MEDS: MECLIZINE 12.5 MG TAB PO PRN (05:05)
[2021-02-21] MEDS: lisinopriL 10 MG TAB PO SCH (08:06)
[2021-02-21] MEDS: METOPROLOL TARTRATE 25 MG TAB PO SCH ×2 (08:06→18:07)
[2021-02-21] MEDS: MELOXICAM 7.5 MG TAB PO SCH (08:06)
[2021-02-21] MEDS: ATORVASTATIN 20 MG TAB PO SCH (08:06)
[2021-02-21] MEDS: DOXYCYCLINE 100 MG in SODIUM CHLORIDE 0.9% 100 ML IVPB SCH ×2 (08:07→20:23)
[2021-02-21] MEDS: PANTOPRAZOLE 40 MG TABLET PO SCH (08:07)
[2021-02-21] MEDS: HEPARIN SODIUM,PORCINE/PF 5,000 UNIT/0.5 ML SYRINGE SQ SCH ×2 (08:07→20:23)
[2021-02-21] MEDS ORDERED: lisinopriL 10 MG TAB PO STA (09:15)
[2021-02-21] MEDS ORDERED: ONDANSETRON 4 MG/2 ML VIAL IVP PRN (09:16)
[2021-02-21] MEDS ORDERED: VANCOMYCIN IV PER PHARMACY 1 EACH MISC MISCELLANE PRN (09:20)
[2021-02-21] MEDS ORDERED: VANCOMYCIN 1,500 MG in SODIUM CHLORIDE 0.9% 250 ML IVPB STA (09:21)
[2021-02-21] MEDS ORDERED: amLODIPine 5 MG TAB PO STA (12:45)
--- NOTE | 2021-02-21 13:01 | P.PN ---
Subjective Progress Note Date: 02/21/21 HISTORY OF PRESENT ILLNESS This is an 80-year-old female patient of Dr. Smart and Dr. MARIE Weiner with past medical history of coronary artery disease status post CABG 1999, ventricular tachycardia status post radiofrequency ablation in 2016, hyperlipidemia, hypertension, generalized osteoarthritis. Patient complains of shortness of breath that started yesterday along with chills and rigors. She states she has a little dysuria, occasional shortness of breath at night for the past week. She denies having any chest pain, lightheadedness or dizziness. Patient's recently underwent valvular heart surgery in [place]. Patient has no history of asthma or COPD. Patient presented to [facility] emergency center. She was found to be febrile at 102, heart rate 103, blood pressure 161/79, pulse ox 92% on room air. WBC 7.3, hemoglobin 10, platelet count 162. INR 1.0. Sodium 137, potassium 4.3, chloride 109, CO2 18 BUN 26 and creatinine 1.12. Blood sugar 136. Liver function tests were normal. Magnesium 1.5 and was replaced in the emergency center. Urinalysis cloudy, nitrate positive, leukoesterase large, WBC greater than 182. Coronavirus PCR not detected. Chest x-ray shows interstitial infiltrates with more localized nodular area of consolidation in the right midlung. Could represent developing superimposed consolidative pneumonia. Underlying neoplasm excluded follow-up to resolution. Patient was started on azithromycin but due to QT prolongation this was discontinued and patient started on Rocephin and IV doxycycline. Cardiology consult was added for prolonged QT. 02/20: Repeat chest x-ray reveals borderline cardiomegaly. COPD. Interstitial changes are similar. Right midlung opacities has resolved. Urine culture is finalized with E. coli. Patient states that she is feeling a lot better from yesterday. Repeat CBC reveals WBC of 13.7, hemoglobin 8.3, platelet count 137. Chemistry is pending. Patient has been seen by cardiology with recommendations to replace magnesium, hold ANDRÉS inhibitor and hold prolonged QT medications. Anticipate possible discharge home tomorrow. Now patient will be continued on doxycycline and Rocephin and she is also treated for pneumonia. 02/21: Patient states that she is feeling better but was nauseated all night and complains of chills. She did have a normal bowel movement, no blood. She states she has no appetite. Blood pressure has been running high, IV fluids will be decreased to 50 mL per hour, lisinopril increased to 20 mg twice daily and amlodipine 5 mg daily. Patient has been afebrile, heart rate 79, blood pressure 146/81, pulse ox 95% on room air. One dose of IV vancomycin ordered and consult for Dr. Patel has been added. Patient is currently on ceftriaxone and doxycycline for UTI and pneumonia. Repeat blood work ordered for tomorrow. Patient complained to her nurse that she was having pain in her chest and between her shoulder blades but this was not mentioned prior. We will ask for troponins and abdominal ultrasound rule out gallbladder disease. REVIEW OF SYSTEMS Constitutional: Reports fever, Reports chills, Reports night sweats. No weight change. No weakness,Reports fatigue No lethargy. No daytime sleepiness. EENT: No headache. No blurred vision or double vision, no loss of vision. No loss of Hearing, no ringing in the ears, no dizziness. No nasal drainage or congestion. No epistaxis. No sore throat. Lungs: Reports shortness of breath-improved, cough, no sputum production. No wheezing. Cardiovascular: Reports chest pain, no lower extremity edema. No palpitations. No paroxysmal nocturnal dyspnea. No orthopnea. No lightheadedness or dizziness. No syncopal episodes. Abdominal: No abdominal pain. Reports nausea, denies vomiting. No diarrhea. No constipation. No bloody or tarry stools.. No loss of appetite. Genitourinary: Reports dysuria, increased frequency, urgency. No urinary retention. Musculoskeletal: No myalgias. No muscle weakness, no gait dysfunction, no frequent falls. Reports thoracic back pain. No neck pain. Integumentary: No wounds, no lesions. No rash or pruritus. No unusual bruising. No change in hair or nails. Neurologic: No aphasia. No facial droop. No change in mentation. No head injury. No headache. No paralysis. No paresthesia. Psychiatric: No depression. No anxiety. No mood swings. Endocrine: No abnormal blood sugars. No weight change. PHYSICAL EXAMINATION Gen: This is an 80-year-old female. Patient is resting in chair and appears to be comfortable and in no acute distress. HEENT: Head is atraumatic, normocephalic. Pupils equal, round. Sclerae is anicteric. NECK: Supple. No JVD. No lymphadenopathy. No thyromegaly. LUNGS: Clear to auscultation. No wheezes or rhonchi. No intercostal retractions. HEART: Regular rate and rhythm. No murmur. ABDOMEN: Soft. Bowel sounds are present. No masses. No tenderness. EXTREMITIES: No pedal edema. No calf tenderness. Dorsalis pedis +2 bilaterally. NEUROLOGICAL: Patient is awake, alert and oriented x3. Cranial nerves 2 through 12 are grossly intact. ASSESSMENT AND PLAN 1. Sepsis secondary to combination of right sided pneumonia and urinary tract infection. Continue IV antibiotics the form of ceftriaxone and doxycycline, blood culture, urine culture, Tylenol as needed for pain and fever, one dose of IV vancomycin, consult with Dr. Patel. 2. Metabolic acidosis secondary to sepsis. Patient is status post 500 mL bolus, continue IV fluids decreased to 50 mL/h, recheck lab work in the morning 3. QT prolongation. Cardiology consult appreciated. 4. Hypomagnesemia. Status post replacement 5. Acute kidney injury. Continue IV fluids, avoid nephrotoxic agents, avoid hypotension. 6. Hypertension. Continue lisinopril increased to 20 mg twice daily, amlodipine 5 mg daily added and continue Lopressor 25 mg twice daily. 7. History of coronary artery disease status post CABG. Continue Lopressor, Lipitor. 8. Hyperlipidemia. Continue atorvastatin 20 mg daily. 9. Chest pain, thoracic back pain, nausea. Abdominal ultrasound, troponins. 10. Gastroesophageal reflux disease. Continue Protonix. 11. DVT prophylaxis. Heparin subcu. DISCHARGE PLAN Home on her today or Wednesday. Impression and plan of care have been directed as dictated by the signing physician. Krissy Sol nurse practitioner acting as scribe for signing physician. Objective - Vital Signs Vital signs: Vital Signs Temp 98.6 F 02/21/21 07:27 Pulse 79 02/21/21 08:00 Resp 16 02/21/21 08:00 BP 176/81 02/21/21 08:00 Pulse Ox 95 02/21/21 08:00 Intake & Output 02/20/21 02/21/21 02/21/21 18:59 06:59 18:59 Other: # Voids 1 - Labs CBC & Chem 7: 02/20/21 06:37 02/20/21 06:37 Labs: Abnormal Lab Results - Last 24 Hours (Table) 02/20/21 02/20/21 Range/Units 06:37 06:37 WBC 13.70 H (4.50-10.00) X 10*3/uL RBC 2.56 L (4.10-5.20) X 10*6/uL Hgb 8.3 L (12.0-15.0) g/dL Hct 25.6 L (37.2-46.3) % MCV 100.0 H (80.0-97.0) fL MCH 32.4 H (27.0-32.0) pg RDW 15.5 H (11.5-14.5) % Plt Count 137 L (140-440) X 10*3/uL Plt Count Comment DECREASED A Chloride 114 H (96-109) mmol/L BUN 28.0 H (9.0-27.0) mg/dL Est GFR (CKD-EPI)AfAm 54.1 L (60.0-200.0) Est GFR (CKD-EPI)NonAf 46.7 L (60.0-200.0) BUN/Creatinine Ratio 25.45 H (12.00-20.00) Ratio Calcium 8.2 L (8.7-10.3) mg/dL Microbiology - Last 24 Hours (Table) 02/19/21 06:36 Blood Culture - Preliminary Blood No Growth after 48 hours 02/19/21 06:36 Blood Culture Gram Stain - Preliminary Blood Blood Culture - Preliminary Escherichia coli 02/19/21 06:36 Urine Culture - Preliminary Urine,Voided Gram Neg Bacilli
[2021-02-21] MEDS ORDERED: ASPIRIN 81 MG PO STA (15:47)
[2021-02-21] MEDS: NITROGLYCERIN SL TABS 0.4 MG TAB SUBLINGUAL PRN ×3 (15:57→16:12)
[2021-02-21 16:01] LABS: Basophils # (A) 0.1 k/uL (0-0.2); Basophils % (A) 1 %; Eosinophils # (A) 0.3 k/uL (0-0.7); Eosinophils % (A) 2 %; HCT 28.8 % (34.0-46.0); HGB 9.5 gm/dL (11.4-16.0); Lymphocytes % (A) 10 %; MCH 32.6 pg (25.0-35.0); MCV 98.9 fL (80.0-100.0); Macrocytosis Slight; Mean Platelet Volume 8.9; Monocytes # (A) 0.6 k/uL (0-1.0); Monocytes % (A) 5 %; Neutrophils # (A) 8.7 k/uL (1.3-7.7); Neutrophils % (A) 80 %; Platelet Count 184 k/uL (150-450); RBC 2.91 m/uL (3.80-5.40); RDW 15.2 % (11.5-15.5); WBC 10.9 k/uL (3.8-10.6)
[2021-02-21 16:12] VITALS: RESP 18
[2021-02-21 16:23] LABS: African American GFR (CKD) 62 (>60 ml/min/1.73 sqM); Anion Gap 10 mmol/L; Blood Urea Nitrogen 21 mg/dL (7-17); Calcium 9.2 mg/dL (8.4-10.2); Carbon Dioxide 20 mmol/L (22-30); Chloride 111 mmol/L (98-107); Glucose 113 mg/dL (74-99); Non-African American GFR(CKD) 54 (>60 ml/min/1.73 sqM); Potassium 3.8 mmol/L (3.5-5.1); Sodium 141 mmol/L (137-145)
[2021-02-21] MEDS ORDERED: hydrALAZINE HCL 20 MG/ML 1 ML VIAL IVP STA ×2 (16:27→17:28)
[2021-02-21] MEDS ORDERED: HEPARIN SODIUM 1,000 UN/ML (10ML VL) IV ONE (16:32)
[2021-02-21] MEDS ORDERED: HEPARIN SODIUM 1,000 UN/ML (10ML VL) IV PRN (16:32)
[2021-02-21] MEDS ORDERED: NITROGLYCERIN SL TABS 0.4 MG TAB SUBLINGUAL PRN (17:28)
--- NOTE | 2021-02-21 17:59 | P.PN ---
Subjective HISTORY OF PRESENT ILLNESS: This is a pleasant 80-year-old female past medical history significant for coronary artery disease status post CABG 1999, ventricular tachycardia status post radiofrequency ablation in 2016, hyperlipidemia, hypertension. She follows in the office with Dr. Weiner. We have been asked to see in consultation for prolonged QT. Patient seen and examined in the emergency department. Patient presents emergency department with complaints of chills, generalized weakness, and nausea. Patient states she has just been feeling "awful" for 1 day. Her symptoms started yesterday evening, she was playing cards with friends and started to feel extremely cold and shaky. She states her symptoms worsened overnight and she woke up last night with worsening chills and generalized weakness. She also had nausea and dry heaving and decided to present to the emergency department. She denies any chest pain, palpitations, lightheadedness, dizziness, syncope. She does occasionally get short of breath at night and has woken up short of breath a few days over the past 2 weeks. She also gets tired after long walks, and dyspnea on exertion which is not new for her. She also endorses increased stress at home, her daughter recently had a stroke and her recently had valve surgery and just returned home. Admission patient's temperature 102F, blood pressure 161/79, heart rate 103, oxygen saturation is 92% on room air. DIAGNOSTICS EKG reveals sinus rhythm, heart rate 94, some ST depresion in leads V5 and V6. QT 426. Most recent cardiac catheterization 02/2016 revealed moderate disease in RCA. The circumflex and mid LAD are occluded with a WOMACK to LAD which is patent and free radial artery graft to circumflex is patent. Medical therapy was advised at this time. Most recent echocardiogram 01/2020 revealed a 50%, concentric LVH, mild right ventricular enlargement and mild aortic insufficiency. Most recent stress test or 01/2019 Lexiscan which was negative for stress-induced ischemia. Apical septal fixed defect. Chest xray interstitial infiltrates with more localized nodule area consoli dation right mid lung. Could represent developing superimposed consolidative pneumonia. Laboratory reviewed, WBC 7.3, hemoglobin 10, platelets 162, sodium 137, potassium 4.3, BUN 26, serum creatinine 1.12, magnesium 1.5, UA positive for UTI, COVID-19 negative. Current home cardiac medications include Toprol tartrate 25 mg twice daily, lisinopril 10 mg daily, [id number] mg daily 02/20/2021 Patient examined at the bedside with Dr. Landaverde. Patient denies chest pain or pressure. She currently denies shortness of breath. Telemetry reviewed revealing sinus mechanism. Vital signs are stable. 02/21 Patient seen and examined. Patient was doing fairly well this morning however start to develop chest tightness feeling since approximately 3:30 PM. Therefore troponin was drawn which was mildly elevated at 0.1. She was given 3 nitroglycerin with some relief an EKG performed shows sinus rhythm with nonspecific ST depressions laterally. Patient does get chest discomfort with fairly minimal activity at home consistent with chronic angina. Patient's blood pressures been elevated since last night. PHYSICAL EXAM: VITAL SIGNS: Reviewed. GENERAL: Well-developed in no acute distress. NECK: Supple. No JVD or thyromegaly LUNGS: Respirations even and unlabored. Lungs essentially clear to auscultation bilaterally. HEART: Regular rate and rhythm. S1 and S2 heard. EXTREMITIES: Normal range of motion. No clubbing or cyanosis. Peripheral pulses intact. No lower extremity edema ASSESSMENT: Pneumonia Urinary tract infection Prolonged QT Acute Kidney Injury Hypomagnesemia History of coronary artery disease s/p CABG in 1999 History of ventricular tachycardia status post ablation in 2016 Dyslipidemia Hypertension, uncontrolled NSTEMI Chest pain PLAN: Patient with new onset of chest pain this afternoon. Suspect type II mechanism secondary to sepsis, urinary tract infection as well as uncontrolled hypertension. Unclear why patient's blood pressure has increased. Patient does have a history of CABG and chronic angina and suspect this is a type II mechanism as opposed to a new Type I mechanism. Discussed with patient possible options including urgent heart catheterization versus attempting to decrease blood pressure and treat medically and patient would rather treat medically. We will continue with nitroglycerin and antihypertensives, antianginals. Discussed possibility of placing patient in ICU for better blood pressure control however would like to avoid if possible given concern of COVID patients. Heparin drip and aspirin. Further recommendations to follow. Discussed with nursing to page cardiology if chest pain continues. Goal of patient becoming chest pain-free. Objective - Vital Signs Vital signs: Vital Signs Temp 98.6 F 02/21/21 07:27 Pulse 82 02/21/21 17:21 Resp 18 02/21/21 16:11 BP 189/79 02/21/21 17:21 Pulse Ox 98 02/21/21 17:21 Intake & Output 02/20/21 02/21/21 02/21/21 18:59 06:59 18:59 Other: # Voids 1 - Labs CBC & Chem 7: 02/21/21 15:25 02/21/21 15:25 Labs: Abnormal Lab Results - Last 24 Hours (Table) 02/21/21 02/21/21 02/21/21 Range/Units 12:45 15:25 15:25 WBC 10.9 H (3.8-10.6) k/uL RBC 2.91 L (3.80-5.40) m/uL Hgb 9.5 L (11.4-16.0) gm/dL Hct 28.8 L (34.0-46.0) % Neutrophils # 8.7 H (1.3-7.7) k/uL Chloride (98-107) mmol/L Carbon Dioxide (22-30) mmol/L BUN (7-17) mg/dL Glucose (74-99) mg/dL Troponin I 0.139 H* 0.116 H* (0.000-0.034) ng/mL 02/21/21 Range/Units 15:25 WBC (3.8-10.6) k/uL RBC (3.80-5.40) m/uL Hgb (11.4-16.0) gm/dL Hct (34.0-46.0) % Neutrophils # (1.3-7.7) k/uL Chloride 111 H (98-107) mmol/L Carbon Dioxide 20 L (22-30) mmol/L BUN 21 H (7-17) mg/dL Glucose 113 H (74-99) mg/dL Troponin I (0.000-0.034) ng/mL Microbiology - Last 24 Hours (Table) 02/19/21 06:36 Urine Culture - Final Urine,Voided Escherichia coli 02/19/21 06:36 Blood Culture Gram Stain - Final Blood Blood Culture - Final Escherichia coli 02/19/21 06:36 Blood Culture - Preliminary Blood No Growth after 48 hours
[2021-02-21] MEDS ORDERED: NITROGLYCERIN-D5W PMX 50 MG in DEXTROSE/WATER 1 250ML.BAG IV SCH (18:00)
[2021-02-21 18:22] LABS: Partial Thromboplastin Time 25.8 sec (22.0-30.0); Prothrombin Time 10.4 sec (9.0-12.0)
[2021-02-21] MEDS: HEPARIN SOD,PORK IN 0.45% NACL 25,000 UNIT in 0.45% NACL 1 250ML.BAG IV SCH (20:24)
[2021-02-21] MEDS: lisinopriL 20 MG TAB PO SCH (22:01)
--- NOTE | 2021-02-21 23:14 | P.CONS ---
History of Present Illness - Reason for Consult Consult date: 02/21/21 Bacteremia Requesting physician: Lee Smart - Chief Complaint weakness and chills x 1 day - History of Present Illness Patient is 80-year-old female presented to the hospital 2 days ago for evaluation of weakness apparently the patient woke up the morning of [facility] was feeling very weak and did have rigors and chills patient denies having any headache or URI symptoms, no chest pain shortness of breath or cough no nausea no vomiting no abdominal pain no diarrhea patient did have urinary frequency for a day or 2 but no significant suprapubic or flank pain with the symptom the patient was evaluated by ER physician on arrival to the ER the patient had a fever of 102 degree for night patient was not tachycardic did have elevated white count 13.70 BUN was mildly elevated as well as troponin patient did have a positive UA chest x-ray with borderline cardiomegaly patient will be treated with a Rocephin patient blood and urine cultures gram-positive gram-negative bacilli that has prompted this infectious disease consultation. Review of Systems Positive point has been mentioned in HPI rest of the systems are negative Past Medical History Past Medical History: Coronary Artery Disease (CAD), Hyperlipidemia, Hypertension, Osteoarthritis (OA) Additional Past Medical History / Comment(s): [facility], [facility] History of Any Multi-Drug Resistant Organisms: None Reported Past Surgical History: Breast Surgery, Cardiac Ablation, Coronary Bypass/CABG, Heart Catheterization, Hysterectomy, Joint Replacement, Orthopedic Surgery Additional Past Surgical History / Comment(s): cataracts removed, left knee replaced, arthroscopy knee, bilateral shoulder surg., heel spur removed, breast reduction, double bypass, blepharoplasty,3rd digit lt hand repair Past Anesthesia/Blood Transfusion Reactions: Motion Sickness, Postoperative Nausea & Vomiting (PONV) Additional Past Anesthesia/Blood Transfusion Reaction / Comm: no problems with prior blood transfusion. Past Psychological History: No Psychological Hx Reported Past Alcohol Use History: None Reported Past Drug Use History: None Reported - Past Family History Sister(s) Family Medical History: Cancer Mother Family Medical History: Coronary Artery Disease (CAD), Diabetes Mellitus Father Family Medical History: Coronary Artery Disease (CAD) Brother(s) Family Medical History: Myocardial Infarction (SC) Additional Family Medical History / Comment(s): with SC Medications and Allergies Home Medications Medication Instructions Recorded Confirmed Type lisinopriL [Zestril] 10 mg PO DAILY 03/13/16 02/19/21 History Meclizine [Antivert] 12.5 mg PO TID PRN 04/14/16 02/19/21 History Meloxicam [Mobic] 15 mg PO DAILY 02/19/21 02/19/21 History Metoprolol Tartrate [Lopressor] 25 mg PO BID-W/MEALS 02/19/21 02/19/21 History Pantoprazole Sodium [Protonix] 40 mg PO DAILY 02/19/21 02/19/21 History Rosuvastatin [Crestor] 10 mg PO DAILY 02/19/21 02/19/21 History Ubidecarenone [Co Q-10] 200 mg PO DAILY 02/19/21 02/19/21 History Allergies Allergy/AdvReac Type Severity Reaction Status Date / Time Penicillins Allergy Rash/Hives Verified 02/19/21 09:28 metal Allergy pain(had Uncoded 02/19/21 09:28 reaction to knee implant) Physical Exam Vitals: Vital Signs Temp Pulse Resp BP Pulse Ox 02/21/21 15:59 86 16 185/71 96 02/21/21 13:30 78 187/89 95 02/21/21 09:16 84 18 190/84 95 02/21/21 08:00 79 18 176/81 95 02/21/21 07:27 98.6 F 79 18 197/82 96 02/21/21 02:00 98.2 F 78 13 188/81 92 L 02/20/21 19:16 98.2 F 69 16 164/77 95 Intake and Output 02/21/21 02/21/21 02/21/21 06:59 14:59 22:59 Other: # Voids 1 GENERAL DESCRIPTION: Elderly female up in the chair, no distress. No tachypnea or accessory muscle of respiration use. HEENT: Shows Pallor , no scleral icterus. Oral mucous membrane is dry. NECK: Trachea central, no thyromegaly. LUNGS: Unlabored breathing. Clear to auscultation anteriorly. No wheeze or crackle. HEART: S1, S2, regular rate and rhythm. ABDOMEN: Soft, no tenderness , guarding or rigidity EXTREMITIES: No edema of feet. SKIN: No rash, no masses palpable. NEUROLOGICAL: The patient is awake, alert, oriented x3, mood and affect normal. Results CBC & Chem 7: 02/21/21 15:25 02/21/21 15:25 Labs: Abnormal Lab Results - Last 24 Hours (Table) 02/21/21 Range/Units 12:45 Troponin I 0.139 H* (0.000-0.034) ng/mL Microbiology - Last 24 Hours (Table) 02/19/21 06:36 Urine Culture - Final Urine,Voided Escherichia coli 02/19/21 06:36 Blood Culture Gram Stain - Final Blood Blood Culture - Final Escherichia coli 02/19/21 06:36 Blood Culture - Preliminary Blood No Growth after 48 hours Assessment and Plan Assessment: 1-patient presented to hospital with sepsis in this patient did have a fever elevated white count significantly positive UA urinary symptom likely secondary to urinary tract infection/pyelonephritis and likely from enteric gram-negative pathogen in this patient who do not have any history of recent antibiotic ex posure could be sensitive pathogen (1) Sepsis Current Visit: Yes Status: Acute Code(s): A41.9 - SEPSIS, UNSPECIFIED ORGANISM SNOMED Code(s): 42508606 (2) E coli bacteremia Current Visit: Yes Status: Acute Code(s): R78.81 - BACTEREMIA; B96.20 - UNSP ESCHERICHIA COLI THE CAUSE OF DISEASES [facility]SD [facility] SNOMED Code(s): 950859429749 Plan: 1-we will obtain ultrasound of the kidneys to make sure no evidence of any structural normality 2-continue Rocephin 2 g daily and discontinue doxycycline We will follow on clinical condition and cultures to further adjust medication if needed Thank you for this consultation we will follow the patient along with you
[2021-02-22] MEDS: METOPROLOL TARTRATE 25 MG TAB PO SCH ×2 (06:41→14:59)
[2021-02-22] MEDS: VANCOMYCIN 1,500 MG in SODIUM CHLORIDE 0.9% 250 ML IVPB SCH (06:41)
[2021-02-22] MEDS: SODIUM CHLORIDE 0.9% 1,000 ML IV SCH (07:53)
[2021-02-22] MEDS: ACETAMINOPHEN TAB 325 MG TAB PO PRN ×2 (08:15→14:59)
[2021-02-22] MEDS: HEPARIN SODIUM,PORCINE/PF 5,000 UNIT/0.5 ML SYRINGE SQ SCH ×2 (08:15→20:15)
[2021-02-22] MEDS: ASPIRIN 81 MG PO SCH (08:15)
[2021-02-22] MEDS: ATORVASTATIN 20 MG TAB PO SCH (08:16)
[2021-02-22] MEDS: amLODIPine 5 MG TAB PO SCH (08:16)
[2021-02-22] MEDS: lisinopriL 20 MG TAB PO SCH ×2 (08:16→21:12)
[2021-02-22] MEDS: PANTOPRAZOLE 40 MG TABLET PO SCH (08:16)
[2021-02-22] MEDS: MELOXICAM 7.5 MG TAB PO SCH (08:16)
[2021-02-22 08:18] LABS: Basophils # (A) 0.1 k/uL (0-0.2); Basophils % (A) 1 %; Eosinophils # (A) 0.2 k/uL (0-0.7); Eosinophils % (A) 2 %; HCT 24.2 % (34.0-46.0); Lymphocytes # (A) 0.9 k/uL (1.0-4.8); Lymphocytes % (A) 10 %; MCH 31.8 pg (25.0-35.0); MCHC 32.7 g/dL (31.0-37.0); MCV 97.3 fL (80.0-100.0); Mean Platelet Volume 8.4; Monocytes # (A) 0.5 k/uL (0-1.0); Monocytes % (A) 6 %; Neutrophils % (A) 77 %; Platelet Count 171 k/uL (150-450); RBC 2.49 m/uL (3.80-5.40); RDW 15.4 % (11.5-15.5)
[2021-02-22 08:22] LABS: HGB 7.9 gm/dL (11.4-16.0)
[2021-02-22] MEDS ORDERED: lisinopriL 20 MG TAB PO SCH (09:00)
[2021-02-22 09:20] LABS: Albumin 2.8 g/dL (3.5-5.0); Calcium 9.1 mg/dL (8.4-10.2); Potassium 3.9 mmol/L (3.5-5.1); Total Bilirubin 0.2 mg/dL (0.2-1.3); Total Protein 5.3 g/dL (6.3-8.2)
--- NOTE | 2021-02-22 11:09 | P.PN ---
Subjective Progress Note Date: 02/22/21 HISTORY OF PRESENT ILLNESS This is an 80-year-old female patient of Dr. Smart and Dr. MARIE Weiner with past medical history of coronary artery disease status post CABG 1999, ventricular tachycardia status post radiofrequency ablation in 2016, hyperlipidemia, hypertension, generalized osteoarthritis. Patient complains of shortness of breath that started yesterday along with chills and rigors. She states she has a little dysuria, occasional shortness of breath at night for the past week. She denies having any chest pain, lightheadedness or dizziness. Patient's recently underwent valvular heart surgery in [place]. Patient has no history of asthma or COPD. Patient presented to [facility] emergency center. She was found to be febrile at 102, heart rate 103, blood pressure 161/79, pulse ox 92% on room air. WBC 7.3, hemoglobin 10, platelet count 162. INR 1.0. Sodium 137, potassium 4.3, chloride 109, CO2 18 BUN 26 and creatinine 1.12. Blood sugar 136. Liver function tests were normal. Magnesium 1.5 and was replaced in the emergency center. Urinalysis cloudy, nitrate positive, leukoesterase large, WBC greater than 182. Coronavirus PCR not detected. Chest x-ray shows interstitial infiltrates with more localized nodular area of consolidation in the right midlung. Could represent developing superimposed consolidative pneumonia. Underlying neoplasm excluded follow-up to resolution. Patient was started on azithromycin but due to QT prolongation this was discontinued and patient started on Rocephin and IV doxycycline. Cardiology consult was added for prolonged QT. 02/20: Repeat chest x-ray reveals borderline cardiomegaly. COPD. Interstitial changes are similar. Right midlung opacities has resolved. Urine culture is finalized with E. coli. Patient states that she is feeling a lot better from yesterday. Repeat CBC reveals WBC of 13.7, hemoglobin 8.3, platelet count 137. Chemistry is pending. Patient has been seen by cardiology with recommendations to replace magnesium, hold ANDRÉS inhibitor and hold prolonged QT medications. Anticipate possible discharge home tomorrow. Now patient will be continued on doxycycline and Rocephin and she is also treated for pneumonia. 02/21: Patient states that she is feeling better but was nauseated all night and complains of chills. She did have a normal bowel movement, no blood. She states she has no appetite. Blood pressure has been running high, IV fluids will be decreased to 50 mL per hour, lisinopril increased to 20 mg twice daily and amlodipine 5 mg daily. Patient has been afebrile, heart rate 79, blood pressure 146/81, pulse ox 95% on room air. One dose of IV vancomycin ordered and consult for Dr. Patel has been added. Patient is currently on ceftriaxone and doxycycline for UTI and pneumonia. Repeat blood work ordered for tomorrow. Patient complained to her nurse that she was having pain in her chest and between her shoulder blades but this was not mentioned prior. We will ask for troponins and abdominal ultrasound rule out gallbladder disease. 02/22: Patient has been seen by cardiology and transferred to the selective care unit and started on heparin drip and aspirin. Patient has been seen by Dr. Patel for sepsis. Ultrasound of the kidneys has been ordered and recommended continuing Rocephin and discontinuing doxycycline. Ultrasound is scheduled for today. Patient denies having any chills, no dysuria. She states she has a little headache and nasal congestion, Flonase added. REVIEW OF SYSTEMS Constitutional: Reports fever, Reports chills, Reports night sweats. No weight change. No weakness,Reports fatigue No lethargy. No daytime sleepiness. EENT: No headache. No blurred vision or double vision, no loss of vision. No loss of Hearing, no ringing in the ears, no dizziness. No nasal drainage or congestion. No epistaxis. No sore throat. Lungs: Reports shortness of breath-improved, cough, no sputum production. No wheezing. Cardiovascular: Reports chest pain, no lower extremity edema. No palpitations. No paroxysmal nocturnal dyspnea. No orthopnea. No lightheadedness or dizziness. No syncopal episodes. Abdominal: No abdominal pain. Reports nausea, denies vomiting. No diarrhea. No constipation. No bloody or tarry stools.. No loss of appetite. Genitourinary: Reports dysuria, increased frequency, urgency. No urinary retention. Musculoskeletal: No myalgias. No muscle weakness, no gait dysfunction, no frequent falls. Reports thoracic back pain. No neck pain. Integumentary: No wounds, no lesions. No rash or pruritus. No unusual bruising. No change in hair or nails. Neurologic: No aphasia. No facial droop. No change in mentation. No head injury. No headache. No paralysis. No paresthesia. Psychiatric: No depression. No anxiety. No mood swings. Endocrine: No abnormal blood sugars. No weight change. PHYSICAL EXAMINATION Gen: This is an 80-year-old female. Patient is resting in chair and appears to be comfortable and in no acute distress. HEENT: Head is atraumatic, normocephalic. Pupils equal, round. Sclerae is anicteric. NECK: Supple. No JVD. No lymphadenopathy. No thyromegaly. LUNGS: Clear to auscultation. No wheezes or rhonchi. No intercostal retractions. HEART: Regular rate and rhythm. No murmur. ABDOMEN: Soft. Bowel sounds are present. No masses. No tenderness. EXTREMITIES: No pedal edema. No calf tenderness. Dorsalis pedis +2 bilaterally. NEUROLOGICAL: Patient is awake, alert and oriented x3. Cranial nerves 2 through 12 are grossly intact. ASSESSMENT AND PLAN 1. Sepsis secondary to combination of right sided pneumonia and urinary tract infection. Continue IV antibiotics the form of ceftriaxone and doxycycline, blood culture, urine culture, Tylenol as needed for pain and fever, one dose of IV vancomycin, consult with Dr. Patel. Renal ultrasound ordered. 2. Metabolic acidosis secondary to sepsis. Patient is status post 500 mL bolus, continue IV fluids decreased to 50 mL/h, recheck lab work in the morning 3. QT prolongation. Cardiology consult appreciated. 4. Hypomagnesemia. Status post replacement 5. Acute kidney injury. Continue IV fluids, avoid nephrotoxic agents, avoid hypotension. 6. Hypertension. Continue lisinopril increased to 20 mg twice daily, amlodipine 5 mg daily added and continue Lopressor 25 mg twice daily. 7. History of coronary artery disease status post CABG. Continue Lopressor, Lipitor. 8. Hyperlipidemia. Continue atorvastatin 20 mg daily. 9. Chest pain, thoracic back pain, nausea. Patient found to have elevated troponin, cardiology consult appreciated, patient transferred to the cardiac stepdown unit and started on heparin drip and aspirin. 10. Gastroesophageal reflux disease. Continue Protonix. 11. DVT prophylaxis. Heparin subcu. DISCHARGE PLAN Home Impression and plan of care have been directed as dictated by the signing physician. Krissy Sol nurse practitioner acting as scribe for signing physician. Objective - Vital Signs Vital signs: Vital Signs Temp 98.3 F 02/22/21 08:00 Pulse 70 02/22/21 08:00 Resp 18 02/22/21 08:00 BP 147/74 02/22/21 08:00 Pulse Ox 95 02/22/21 08:00 Intake & Output 02/21/21 02/22/21 02/22/21 18:59 06:59 18:59 Intake Total 65.5 Output Total 400 Balance -400 65.5 Intake: Intake, IV Titration 65.5 Amount Heparin Sod,Pork in 0.45% 65.5 NaCl 25,000 unit In 0.45 % NaCl 1 250ml.bag @ 11. 8528 UNITS/KG/HR 10 mls/ hr IV .Q24H [facility] Rx#: [id number] Output: Urine 400 Other: Voiding Method Bedside Commode # Voids 1 - Labs CBC & Chem 7: 02/22/21 07:41 02/22/21 07:41 Labs: Abnormal Lab Results - Last 24 Hours (Table) 02/21/21 02/21/21 02/21/21 Range/Units 12:45 15:25 15:25 WBC 10.9 H (3.8-10.6) k/uL RBC 2.91 L (3.80-5.40) m/uL Hgb 9.5 L (11.4-16.0) gm/dL Hct 28.8 L (34.0-46.0) % Neutrophils # 8.7 H (1.3-7.7) k/uL Lymphocytes # (1.0-4.8) k/uL APTT (22.0-30.0) sec Chloride (98-107) mmol/L Carbon Dioxide (22-30) mmol/L BUN (7-17) mg/dL Glucose (74-99) mg/dL Troponin I 0.139 H* 0.116 H* (0.000-0.034) ng/mL Total Protein (6.3-8.2) g/dL Albumin (3.5-5.0) g/dL 02/21/21 02/21/21 02/22/21 Range/Units 15:25 18:00 02:08 WBC (3.8-10.6) k/uL RBC (3.80-5.40) m/uL Hgb (11.4-16.0) gm/dL Hct (34.0-46.0) % Neutrophils # (1.3-7.7) k/uL Lymphocytes # (1.0-4.8) k/uL APTT 60.5 H (22.0-30.0) sec Chloride 111 H (98-107) mmol/L Carbon Dioxide 20 L (22-30) mmol/L BUN 21 H (7-17) mg/dL Glucose 113 H (74-99) mg/dL Troponin I 0.129 H* (0.000-0.034) ng/mL Total Protein (6.3-8.2) g/dL Albumin (3.5-5.0) g/dL 02/22/21 02/22/21 Range/Units 07:41 07:41 WBC (3.8-10.6) k/uL RBC 2.49 L (3.80-5.40) m/uL Hgb 7.9 L D (11.4-16.0) gm/dL Hct 24.2 L (34.0-46.0) % Neutrophils # (1.3-7.7) k/uL Lymphocytes # 0.9 L (1.0-4.8) k/uL APTT (22.0-30.0) sec Chloride 113 H (98-107) mmol/L Carbon Dioxide 18 L (22-30) mmol/L BUN 18 H (7-17) mg/dL Glucose 112 H (74-99) mg/dL Troponin I (0.000-0.034) ng/mL Total Protein 5.3 L (6.3-8.2) g/dL Albumin 2.8 L (3.5-5.0) g/dL Microbiology - Last 24 Hours (Table) 02/19/21 06:36 Blood Culture - Preliminary Blood No Growth after 72 hours 02/19/21 06:36 Urine Culture - Final Urine,Voided Escherichia coli 02/19/21 06:36 Blood Culture Gram Stain - Final Blood Blood Culture - Final Escherichia coli
--- NOTE | 2021-02-22 11:46 | US ---
EXAMINATION TYPE: US abdomen comp/pelvis limited DATE OF EXAM: 02/22/2021 COMPARISON: NONE CLINICAL HISTORY: 80-year-old female nausea, loss of appetite, r/o GB disease. TECHNIQUE: Multiple sonographic images of the abdomen and bladder are obtained. FINDINGS: Tool Drawing Checker notes: Exam limitations due to overlying bowel gas. EXAM MEASUREMENTS: Liver Length: 14.7 cm Gallbladder Wall: .2 cm CBD: .5 cm Spleen: 8.1 cm Right Kidney: 9.6 x 3.0 x 3.2 cm Left Kidney: 10.1 x 4.6 x 4.8 cm Pancreas: Obscured by bowel gas Liver: Limited detail visualization. No focal lesion seen. Gallbladder: appears to have some internal echoes. No abnormal distention, wall thickening, or surro unding fluid. CBD: wnl Spleen: wnl Right Kidney: hypoechoic area seen upper pole 1.7 x 1.3 x 1.8 cm Left Kidney: Anechoic area seen mid pole 1.9 x 1.9 x 2.0 cm No hydronephrosis on either side. Upper IVC: wnl Abd Aorta: wnl Bladder: Underdistention Limited evaluation. Bilateral Jets Seen no IMPRESSION: 1. Some debris in the gallbladder. No shadowing calculi or ancillary findings of acute cholecystitis. 2. No biliary ductal dilatation. 3. A 1.8 cm hypoechoic cortical lesion upper pole right kidney, suspected cyst. Low-level internal ec hoes could be artifactual or could represent debris. Three-month follow-up ultrasound recommended to reassess. 4. Underdistention of the bladder limits its evaluation.
[2021-02-22 11:58] VITALS: TEMP 97.9
[2021-02-22] MEDS: FLUTICASONE 50MCG/SPRAY NASAL 16GM EA NOSTRIL SCH (12:00)
[2021-02-22] MEDS: HEPARIN SOD,PORK IN 0.45% NACL 25,000 UNIT in 0.45% NACL 1 250ML.BAG IV SCH (15:02)
--- NOTE | 2021-02-22 17:12 | PN ---
PROGRESS NOTE DATE OF SERVICE: 02/22/2021 REASON FOR FOLLOWUP: E coli UTI and bacteremia. INTERVAL HISTORY: Patient is currently afebrile. The patient is breathing comfortably. Denies any chest pain. No shortness of breath or cough. No nausea, vomiting, abdominal pain or diarrhea. EXAMINATION: Blood pressure 139/75, pulse of 73, temperature 97.9. She is 95% on room air. General description is an elderly female lying in bed in no distress. Respiratory system: Unlabored breathing, clear to auscultation anteriorly. Heart S1, S2. Regular rate. Abdomen: Soft, no tenderness. LABS: Hemoglobin 7.1, white count 9.0, BUN of 18, creatinine 0.82. DIAGNOSTIC IMPRESSION AND PLAN: Patient with E coli urinary tract infection with secondary bacteremia. Ultrasound shows some simple cyst. Patient is covered with Rocephin to continue. Transition to oral antibiotic on discharge and continue supportive care. MMODL / IJN: [id number] /
--- NOTE | 2021-02-22 17:34 | P.PN ---
Subjective HISTORY OF PRESENT ILLNESS: This is a pleasant 80-year-old female past medical history significant for coronary artery disease status post CABG 1999, ventricular tachycardia status post radiofrequency ablation in 2016, hyperlipidemia, hypertension. She follows in the office with Dr. Weiner. We have been asked to see in consultation for prolonged QT. Patient seen and examined in the emergency department. Patient presents emergency department with complaints of chills, generalized weakness, and nausea. Patient states she has just been feeling "awful" for 1 day. Her symptoms started yesterday evening, she was playing cards with friends and started to feel extremely cold and shaky. She states her symptoms worsened overnight and she woke up last night with worsening chills and generalized weakness. She also had nausea and dry heaving and decided to present to the emergency department. She denies any chest pain, palpitations, lightheadedness, dizziness, syncope. She does occasionally get short of breath at night and has woken up short of breath a few days over the past 2 weeks. She also gets tired after long walks, and dyspnea on exertion which is not new for her. She also endorses increased stress at home, her daughter recently had a stroke and her recently had valve surgery and just returned home. Admission patient's temperature 102F, blood pressure 161/79, heart rate 103, oxygen saturation is 92% on room air. DIAGNOSTICS EKG reveals sinus rhythm, heart rate 94, some ST depresion in leads V5 and V6. QT 426. Most recent cardiac catheterization 02/2016 revealed moderate disease in RCA. The circumflex and mid LAD are occluded with a WOMACK to LAD which is patent and free radial artery graft to circumflex is patent. Medical therapy was advised at this time. Most recent echocardiogram 01/2020 revealed a 50%, concentric LVH, mild right ventricular enlargement and mild aortic insufficiency. Most recent stress test or 01/2019 Lexiscan which was negative for stress-induced ischemia. Apical septal fixed defect. Chest xray interstitial infiltrates with more localized nodule area consolidation right mid lung. Could represent developing superimposed consolidative pneumonia. Laboratory reviewed, WBC 7.3, hemoglobin 10, platelets 162, sodium 137, potassium 4.3, BUN 26, serum creatinine 1.12, magnesium 1.5, UA positive for UTI, COVID-19 negative. Current home cardiac medications include Toprol tartrate 25 mg twice daily, lisinopril 10 mg daily, [id number] mg daily 02/20/2021 Patient examined at the bedside with Dr. Landaverde. Patient denies chest pain or pressure. She currently denies shortness of breath. Telemetry reviewed revealing sinus mechanism. Vital signs are stable. 02/21 Patient seen and examined. Patient was doing fairly well this morning however start to develop chest tightness feeling since approximately 3:30 PM. Therefore troponin was drawn which was mildly elevated at 0.1. She was given 3 nitroglycerin with some relief an EKG performed shows sinus rhythm with nonspecific ST depressions laterally. Patient does get chest discomfort with fairly minimal activity at home consistent with chronic angina. Patient's blood pressures been elevated since last night. 02/22 Patient seen and examined. Patient states she is feeling much better than yesterday. She denies any further chest tightness. She was placed on a nitroglycerin drip, currently down to 20. She was also placed on a heparin drip with hemoglobin down to 7.9 today. She denies any hematochezia or melena. She does have 2 blood cultures positive for E. coli, mild acidosis with bicarb 18 today. Denies any further fevers or chills. PHYSICAL EXAM: VITAL SIGNS: Reviewed. GENERAL: Well-developed in no acute distress. NECK: Supple. No JVD or thyromegaly LUNGS: Respirations even and unlabored. Lungs essentially clear to auscultation bilaterally. HEART: Regular rate and rhythm. S1 and S2 heard. EXTREMITIES: Normal range of motion. No clubbing or cyanosis. Peripheral pulses intact. No lower extremity edema ASSESSMENT: Pneumonia Urinary tract infection Prolonged QT Acute Kidney Injury Hypomagnesemia History of coronary artery disease s/p CABG in 1999 with chronic angina History of ventricular tachycardia status post ablation in 2016 Dyslipidemia Hypertension, uncontrolled NSTEMI Chest pain E. coli bacteremia PLAN: Patient with worsened chest pain and mildly elevated troponins, suspect type II mechanism from uncontrolled hypertension, bacteremia, sepsis. Chest pain currently controlled and mild decrease in hemoglobin. We will discontinue the heparin drip and nitroglycerin drip and monitor patient on antianginals. We will start Imdur 30 mg daily. Possible discharge in 24-48 hours from cardio perspective if chest pain-free and tolerating current medical regimen. Objective - Vital Signs Vital signs: Vital Signs Temp 97.9 F 02/22/21 11:57 Pulse 70 02/22/21 11:57 Resp 18 02/22/21 11:57 BP 139/75 02/22/21 11:57 Pulse Ox 95 02/22/21 11:57 Intake & Output 02/21/21 02/22/21 02/22/21 18:59 06:59 18:59 Intake Total 65.5 Output Total 400 Balance -400 65.5 Intake: Intake, IV Titration 65.5 Amount Heparin Sod,Pork in 0.45% 65.5 NaCl 25,000 unit In 0.45 % NaCl 1 250ml.bag @ 11. 8528 UNITS/KG/HR 10 mls/ hr IV .Q24H [facility] Rx#: [id number] Output: Urine 400 Other: Voiding Method Bedside Commode # Voids 1 - Labs CBC & Chem 7: 02/22/21 07:41 02/22/21 07:41 Labs: Abnormal Lab Results - Last 24 Hours (Table) 02/21/21 02/22/21 02/22/21 Range/Units 18:00 02:08 07:41 RBC (3.80-5.40) m/uL Hgb (11.4-16.0) gm/dL Hct (34.0-46.0) % Lymphocytes # (1.0-4.8) k/uL APTT 60.5 H (22.0-30.0) sec Chloride 113 H (98-107) mmol/L Carbon Dioxide 18 L (22-30) mmol/L BUN 18 H (7-17) mg/dL Glucose 112 H (74-99) mg/dL Troponin I 0.129 H* (0.000-0.034) ng/mL Total Protein 5.3 L (6.3-8.2) g/dL Albumin 2.8 L (3.5-5.0) g/dL 02/22/21 Range/Units 07:41 RBC 2.49 L (3.80-5.40) m/uL Hgb 7.9 L D (11.4-16.0) gm/dL Hct 24.2 L (34.0-46.0) % Lymphocytes # 0.9 L (1.0-4.8) k/uL APTT (22.0-30.0) sec Chloride (98-107) mmol/L Carbon Dioxide (22-30) mmol/L BUN (7-17) mg/dL Glucose (74-99) mg/dL Troponin I (0.000-0.034) ng/mL Total Protein (6.3-8.2) g/dL Albumin (3.5-5.0) g/dL Microbiology - Last 24 Hours (Table) 02/19/21 06:36 Blood Culture - Preliminary Blood No Growth after 72 hours
[2021-02-22] MEDS: ISOSORBIDE MONONITRATE ER 30 MG TAB.ER.24H PO SCH (18:14)
[2021-02-23] MEDS: SODIUM CHLORIDE 0.9% 1,000 ML IV SCH (00:26)
[2021-02-23] MEDS: ACETAMINOPHEN TAB 325 MG TAB PO PRN (06:06)
[2021-02-23] MEDS: VANCOMYCIN 1,500 MG in SODIUM CHLORIDE 0.9% 250 ML IVPB SCH (06:06)
[2021-02-23] MEDS: METOPROLOL TARTRATE 25 MG TAB PO SCH (06:07)
[2021-02-23] MEDS: ATORVASTATIN 20 MG TAB PO SCH (07:59)
[2021-02-23] MEDS: lisinopriL 20 MG TAB PO SCH (07:59)
[2021-02-23] MEDS: PANTOPRAZOLE 40 MG TABLET PO SCH (07:59)
[2021-02-23] MEDS: HEPARIN SODIUM,PORCINE/PF 5,000 UNIT/0.5 ML SYRINGE SQ SCH (07:59)
[2021-02-23] MEDS: ASPIRIN 81 MG PO SCH (07:59)
[2021-02-23] MEDS: amLODIPine 5 MG TAB PO SCH (07:59)
[2021-02-23] MEDS: ISOSORBIDE MONONITRATE ER 30 MG TAB.ER.24H PO SCH (07:59)
[2021-02-23] MEDS: MELOXICAM 7.5 MG TAB PO SCH (07:59)
[2021-02-23] MEDS: FLUTICASONE 50MCG/SPRAY NASAL 16GM EA NOSTRIL SCH (08:00)
[2021-02-23 08:24] LABS: Basophils # (A) 0.1 k/uL (0-0.2); Basophils % (A) 1 %; Eosinophils # (A) 0.3 k/uL (0-0.7); Eosinophils % (A) 5 %; HCT 26.1 % (34.0-46.0); HGB 8.6 gm/dL (11.4-16.0); Lymphocytes # (A) 0.9 k/uL (1.0-4.8); Lymphocytes % (A) 13 %; MCH 32.5 pg (25.0-35.0); MCHC 33.1 g/dL (31.0-37.0); Mean Platelet Volume 9.2; Monocytes # (A) 0.6 k/uL (0-1.0); Monocytes % (A) 9 %; Neutrophils # (A) 4.6 k/uL (1.3-7.7); Neutrophils % (A) 67 %; Platelet Count 176 k/uL (150-450); RBC 2.66 m/uL (3.80-5.40); RDW 14.7 % (11.5-15.5); WBC 6.8 k/uL (3.8-10.6)
--- NOTE | 2021-02-23 09:46 | P.DS ---
Providers Date of admission: 02/19/21 08:26 Expected date of discharge: 02/23/21 Attending physician: Lee Smart Consults: 02/21/21 08:27 Consult Physician Routine Consulting Provider: Alanis Patel Consult Reason/Comments: positive Blood Culture Do you want consulting provider notified?: Yes 02/21/21 14:36 Consult Physician Routine Consulting Provider: Colt Landaverde Consult Reason/Comments: elevated trops and chest tightness Do you want consulting provider notified?: Already Contacted Primary care physician: [facility] Course: HISTORY OF PRESENT ILLNESS This is an 80-year-old female patient of Dr. Smart and Dr. MARIE Weiner with past medical history of coronary artery disease status post CABG 1999, ventricular tachycardia status post radiofrequency ablation in 2016, hyperlipidemia, hypertension, generalized osteoarthritis. Patient complains of shortness of breath that started yesterday along with chills and rigors. She states she has a little dysuria, occasional shortness of breath at night for the past week. She denies having any chest pain, lightheadedness or dizziness. Patient's recently underwent valvular heart surgery in [place]. Patient has no history of asthma or COPD. Patient presented to [facility] emergency center. She was found to be febrile at 102, heart rate 103, blood pressure 161/79, pulse ox 92% on room air. WBC 7.3, hemoglobin 10, platelet count 162. INR 1.0. Sodium 137, potassium 4.3, chloride 109, CO2 18 BUN 26 and creatinine 1.12. Blood sugar 136. Liver function tests were normal. Magnesium 1.5 and was replaced in the emergency center. Urinalysis cloudy, nitrate positive, leukoesterase large, WBC greater than 182. Coronavirus PCR not detected. Chest x-ray shows interstitial infiltrates with more localized nodular area of consolidation in the right midlung. Could represent developing superimposed consolidative pneumonia. Underlying neoplasm excluded follow-up to resolution. Patient was started on azithromycin but due to QT prolongation this was discontinued and patient started on Rocephin and IV doxycycline. Cardiology consult was added for prolonged QT. 02/20: Repeat chest x-ray reveals borderline cardiomegaly. COPD. Interstitial changes are similar. Right midlung opacities has resolved. Urine culture is finalized with E. coli. Patient states that she is feeling a lot better from yesterday. Repeat CBC reveals WBC of 13.7, hemoglobin 8.3, platelet count 137. Chemistry is pending. Patient has been seen by cardiology with recommendations to replace magnesium, hold ANDRÉS inhibitor and hold prolonged QT medications. Anticipate possible discharge home tomorrow. Now patient will be continued on doxycycline and Rocephin and she is also treated for pneumonia. 02/21: Patient states that she is feeling better but was nauseated all night and complains of chills. She did have a normal bowel movement, no blood. She states she has no appetite. Blood pressure has been running high, IV fluids will be decreased to 50 mL per hour, lisinopril increased to 20 mg twice daily and amlodipine 5 mg daily. Patient has been afebrile, heart rate 79, blood pressure 146/81, pulse ox 95% on room air. One dose of IV vancomycin ordered and consult for Dr. Patel has been added. Patient is currently on ceftriaxone and doxycycline for UTI and pneumonia. Repeat blood work ordered for tomorrow. Patient complained to her nurse that she was having pain in her chest and between her shoulder blades but this was not mentioned prior. We will ask for troponins and abdominal ultrasound rule out gallbladder disease. 02/22: Patient has been seen by cardiology and transferred to the selective care unit and started on heparin drip and aspirin. Patient has been seen by Dr. Patel for sepsis. Ultrasound of the kidneys has been ordered and recommended continuing Rocephin and discontinuing doxycycline. Ultrasound is scheduled for today. Patient denies having any chills, no dysuria. She states she has a little headache and nasal congestion, Flonase added. 02/23: Patient states she is feeling great and much better from yesterday. She feels that she needs to have a bowel movement and that it's near. During the night she had one episode of tightness in her chest that lasted only for a few seconds. Cardiology has started her on Imdur, amlodipine was added yesterday and lisinopril increased the patient's blood pressure remains elevated. Amlodipine will be increased to [address] Patel is recommended ciprofloxacin for 10 day course. Patient will be discharged today if cleared by cardiology. ASSESSMENT AND PLAN 1. Sepsis secondary to combination of right sided pneumonia and urinary tract infection. 2. Metabolic acidosis secondary to sepsis. 3. QT prolongation. 4. Hypomagnesemia. 5. Acute kidney injury. 6. Hypertension. 7. History of coronary artery disease status post CABG. 8. Hyperlipidemia. 9. Non-ST elevated myocardial infarction 10. Gastroesophageal reflux disease. DISCHARGE PLAN Home Impression and plan of care have been directed as dictated by the signing physician. Krissy Sol nurse practitioner acting as scribe for signing physician. Plan - Discharge Summary Discharge Rx Participant: No New Discharge Prescriptions: New Fluticasone Nasal [place] [Flonase Nasal [place]] 2 spray EA NOSTRIL DAILY spr Isosorbide Mononitrate ER [Imdur] 30 mg PO DAILY #30 tab.er.24h lisinopriL [Zestril] 20 mg PO BID #60 tab amLODIPine [Norvasc] 10 mg PO DAILY #30 tab Aspirin 81 mg PO DAILY chew Ciprofloxacin HCl [Cipro] 500 mg PO BID 10 Days #20 tab Continue Meclizine [Antivert] 12.5 mg PO TID PRN PRN Reason: Vertigo Metoprolol Tartrate [Lopressor] 25 mg PO BID-W/MEALS Rosuvastatin [Crestor] 10 mg PO DAILY Pantoprazole Sodium [Protonix] 40 mg PO DAILY Meloxicam [Mobic] 15 mg PO DAILY Ubidecarenone [Co Q-10] 200 mg PO DAILY Discontinued lisinopriL [Zestril] 10 mg PO DAILY Discharge Medication List Meclizine [Antivert] 12.5 mg PO TID PRN 04/14/16 [History] Meloxicam [Mobic] 15 mg PO DAILY 02/19/21 [History] Metoprolol Tartrate [Lopressor] 25 mg PO BID-W/MEALS 02/19/21 [History] Pantoprazole Sodium [Protonix] 40 mg PO DAILY 02/19/21 [History] Rosuvastatin [Crestor] 10 mg PO DAILY 02/19/21 [History] Ubidecarenone [Co Q-10] 200 mg PO DAILY 02/19/21 [History] Aspirin 81 mg PO DAILY chew 02/23/21 [Rx] Ciprofloxacin HCl [Cipro] 500 mg PO BID 10 Days #20 tab 02/23/21 [Rx] Fluticasone Nasal [place] [Flonase Nasal [place]] 2 spray EA NOSTRIL DAILY spr 02/23/21 [Rx] Isosorbide Mononitrate ER [Imdur] 30 mg PO DAILY #30 tab.er.24h 02/23/21 [Rx] amLODIPine [Norvasc] 10 mg PO DAILY #30 tab 02/23/21 [Rx] lisinopriL [Zestril] 20 mg PO BID #60 tab 02/23/21 [Rx] Follow up Appointment(s)/Referral(s): Colt Landaverde DO [STAFF PHYSICIAN] - 1 Week (Please call the office for an appointment) Lee Smart MD [Primary Care Provider] - 1 Week (Please call the office for an appointment) Alanis Patel MD [STAFF PHYSICIAN] - 2 Weeks (Please call the office for an appointment) Patient Instructions/Handouts: Pneumonitis (DC), Urinary Tract Infection in Women (DC) Discharge Disposition: HOME SELF-CARE
[2021-02-23 11:25] VITALS: BP 170/83; PULSE 61
[2021-02-23] MEDS ORDERED: amLODIPine 5 MG TAB PO STA (11:48)
--- NOTE | 2021-02-23 13:07 | P.PN ---
Subjective HISTORY OF PRESENT ILLNESS: This is a pleasant 80-year-old female past medical history significant for coronary artery disease status post CABG 1999, ventricular tachycardia status post radiofrequency ablation in 2016, hyperlipidemia, hypertension. She follows in the office with Dr. Weiner. We have been asked to see in consultation for prolonged QT. Patient seen and examined in the emergency department. Patient presents emergency department with complaints of chills, generalized weakness, and nausea. Patient states she has just been feeling "awful" for 1 day. Her symptoms started yesterday evening, she was playing cards with friends and started to feel extremely cold and shaky. She states her symptoms worsened overnight and she woke up last night with worsening chills and generalized weakness. She also had nausea and dry heaving and decided to present to the emergency department. She denies any chest pain, palpitations, lightheadedness, dizziness, syncope. She does occasionally get short of breath at night and has woken up short of breath a few days over the past 2 weeks. She also gets tired after long walks, and dyspnea on exertion which is not new for her. She also endorses increased stress at home, her daughter recently had a stroke and her recently had valve surgery and just returned home. Admission patient's temperature 102F, blood pressure 161/79, heart rate 103, oxygen saturation is 92% on room air. DIAGNOSTICS EKG reveals sinus rhythm, heart rate 94, some ST depresion in leads V5 and V6. QT 426. Most recent cardiac catheterization 02/2016 revealed moderate disease in RCA. The circumflex and mid LAD are occluded with a WOMACK to LAD which is patent and free radial artery graft to circumflex is patent. Medical therapy was advised at this time. Most recent echocardiogram 01/2020 revealed a 50%, concentric LVH, mild right ventricular enlargement and mild aortic insufficiency. Most recent stress test or 01/2019 Lexiscan which was negative for stress-induced ischemia. Apical septal fixed defect. Chest xray interstitial infiltrates with more localized nodule area consolidation right mid lung. Could represent developing superimposed consolidative pneumonia. Laboratory reviewed, WBC 7.3, hemoglobin 10, platelets 162, sodium 137, potassium 4.3, BUN 26, serum creatinine 1.12, magnesium 1.5, UA positive for UTI, COVID-19 negative. Current home cardiac medications include Toprol tartrate 25 mg twice daily, lisinopril 10 mg daily, [id number] mg daily 02/20/2021 Patient examined at the bedside with Dr. Landaverde. Patient denies chest pain or pressure. She currently denies shortness of breath. Telemetry reviewed revealing sinus mechanism. Vital signs are stable. 02/21 Patient seen and examined. Patient was doing fairly well this morning however start to develop chest tightness feeling since approximately 3:30 PM. Therefore troponin was drawn which was mildly elevated at 0.1. She was given 3 nitroglycerin with some relief an EKG performed shows sinus rhythm with nonspecific ST depressions laterally. Patient does get chest discomfort with fairly minimal activity at home consistent with chronic angina. Patient's blood pressures been elevated since last night. 02/22 Patient seen and examined. Patient states she is feeling much better than yesterday. She denies any further chest tightness. She was placed on a nitroglycerin drip, currently down to 20. She was also placed on a heparin drip with hemoglobin down to 7.9 today. She denies any hematochezia or melena. She does have 2 blood cultures positive for E. coli, mild acidosis with bicarb 18 today. Denies any further fevers or chills. 02/23 Patient seen and examined. Patient's hemoglobin somewhat improved to 8 today. No chest pain or pressure. Mild shortness of breath overnight however was fairly brief. She denies any cough, fevers or chills. Her blood pressure has somewhat still been elevated and therefore Norvasc was increased. She was placed on Imdur and has been getting a mild headache with it however improved with Tylenol. PHYSICAL EXAM: VITAL SIGNS: Reviewed. GENERAL: Well-developed in no acute distress. NECK: Supple. No JVD or thyromegaly LUNGS: Respirations even and unlabored. Lungs essentially clear to auscultation bilaterally. HEART: Regular rate and rhythm. S1 and S2 heard. EXTREMITIES: Normal range of motion. No clubbing or cyanosis. Peripheral pulses intact. No lower extremity edema ASSESSMENT: Pneumonia Urinary tract infection Prolonged QT Acute Kidney Injury Hypomagnesemia History of coronary artery disease s/p CABG in 1999 with chronic angina History of ventricular tachycardia status post ablation in 2016 Dyslipidemia Hypertension, uncontrolled NSTEMI Chest pain E. 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 She has had somewhat of a headache and discuss take own Tylenol if headache continues, likely will improve within a week or 2. Patient appears stable from a cardiology standpoint for discharge. Objective - Vital Signs Vital signs: Vital Signs Temp 97.9 F 02/23/21 11:24 Pulse 61 02/23/21 11:24 Resp 18 02/23/21 11:24 BP 170/83 02/23/21 11:24 Pulse Ox 97 02/23/21 11:24 Intake & Output 02/22/21 02/23/21 02/23/21 18:59 06:59 18:59 Intake Total 118 Balance 118 Weight 85 kg Intake: Oral 118 Other: Voiding Method Bedside Commode # Voids 1 - Labs CBC & Chem 7: 02/23/21 07:12 02/23/21 07:12 Labs: Abnormal Lab Results - Last 24 Hours (Table) 02/23/21 Range/Units 07:12 RBC 2.66 L (3.80-5.40) m/uL Hgb 8.6 L (11.4-16.0) gm/dL Hct 26.1 L (34.0-46.0) % Lymphocytes # 0.9 L (1.0-4.8) k/uL Microbiology - Last 24 Hours (Table) 02/19/21 06:36 Blood Culture - Preliminary Blood No Growth after 96 hours
[2021-02-24] MEDS ORDERED: amLODIPine 10 MG TAB PO SCH (09:00)
== END 2021-02-23 14:02 | disposition home or self-care (01) | DRG 871 ==
LOC: EC 05:59 → 4SSUR 08:26 → 3SCARD 02-21 17:50
PROVIDERS: ADMIT Internal Medicine Geriatric Medicine; ATTEND Internal Medicine Geriatric Medicine
DX: A41.51 Sepsis due to Escherichia coli [E. coli] (principal); J18.9 Pneumonia, unspecified organism; I21.4 Non-ST elevation (NSTEMI) myocardial infarction; E87.2 Acidosis; N12 Tubulo-interstitial nephritis, not specified as acute or chronic; N17.9 Acute kidney failure, unspecified; I47.2 Ventricular tachycardia; J44.0 Chronic obstructive pulmonary disease with (acute) lower respiratory infection; E78.5 Hyperlipidemia, unspecified; E83.42 Hypomagnesemia; I45.81 Long QT syndrome; I10 Essential (primary) hypertension; I25.10 Atherosclerotic heart disease of native coronary artery without angina pectoris; K21.9 Gastro-esophageal reflux disease without esophagitis; M15.9 Polyosteoarthritis, unspecified; Z20.822 Contact with and (suspected) exposure to COVID-19; Z86.79 Personal history of other diseases of the circulatory system; Z79.1 Long term (current) use of non-steroidal anti-inflammatories (NSAID); Z79.82 Long term (current) use of aspirin; Z79.899 Other long term (current) drug therapy; Z86.73 Personal history of transient ischemic attack (TIA), and cerebral infarction without residual deficits; Z90.710 Acquired absence of both cervix and uterus; Z95.1 Presence of aortocoronary bypass graft; Z96.1 Presence of intraocular lens; Z98.42 Cataract extraction status, left eye; Z98.41 Cataract extraction status, right eye; Z96.652 Presence of left artificial knee joint; Z88.0 Allergy status to penicillin; Z91.048 Other nonmedicinal substance allergy status
CPT/HCPCS: 36415; 71046; 76700; 76857; 80048; 80053; 81001; 82565; 83605; 83735; 84484; 85025; 85027; 85610; 85730; 87040; 87077; 87086; 87186; 87635; 93005

== ENCOUNTER → 2021-07-25 | Outpatient (CLI) | payer MEDICARE, BC ==
--- NOTE | 2021-07-25 11:22 | XR ---
EXAMINATION TYPE: XR chest 2V DATE OF EXAM: 07/25/2021 COMPARISON: 02/20/2021 HISTORY: 80-year-old female Z18.10 M25.571 M76.71 M19.071 TECHNIQUE: Frontal and lateral views FINDINGS: Median sternotomy wires are present. Post-CABG clips in the mediastinum. Heart upper limits of normal in size. Mild interstitial prominence is unchanged. No allison consolidation or pleural effusion. [facility] throughout the thoracic spine. IMPRESSION: 1. Post-CABG changes. No retained epicardial pacer lead seen. 2. Borderline heart size. Chronic changes with mild interstitial prominence. No definite acute proces s.
== END | disposition home or self-care (01) ==
LOC: RADXRMAIN 10:36
PROVIDERS: ATTEND Podiatrist
DX: M25.571 Pain in right ankle and joints of right foot (principal); M76.71 Peroneal tendinitis, right leg; M19.071 Primary osteoarthritis, right ankle and foot
CPT/HCPCS: 71046

== ENCOUNTER 2022-11-29 11:40 | Emergency (ER) | payer MEDICARE, BC ==
[2022-11-29 11:57] VITALS: RESP 18
[2022-11-29 12:24] LABS: Appearance,Urine Turbid (Clear); Bacteria,Urine Moderate /hpf; Bilirubin,Urine Negative (Negative); Blood,Urine Moderate (Negative); Color,Urine Yellow; Glucose,Urine (UA) Negative (Negative); Ketones,Urine Negative (Negative); Leukocyte Esterase,Urine Large (Negative); Nitrite,Urine Negative (Negative); Protein,Urine 2+ (Negative); RBC,Urine 13 /hpf (0-5); Squamous Epithelial Cell,Urine 6 /hpf (0-4); Urobilinogen,Urine <2.0 mg/dL (<2.0); WBC,Urine >182 /hpf (0-5)
[2022-11-29 12:43] LABS: Specific Gravity,Urine 1.013 (1.001-1.035)
--- NOTE | 2022-11-29 12:59 | XR ---
EXAMINATION TYPE: XR chest 2V DATE OF EXAM: 11/29/2022 12:44 PM COMPARISON: Chest radiographs from 07/25/2021 TECHNIQUE: XR chest 2V Frontal and lateral views of the chest. CLINICAL INDICATION:Female, 82 years old with history of cough; FINDINGS: Lungs/Pleura: Prominent interstitial lung markings are seen scattered throughout the lungs with adams ening of the diaphragm and increased lucency of the lung apices. No evidence of focal consolidation, pneumothorax or pleural effusion. Pulmonary vascularity: Unremarkable. Heart/mediastinum: Cardiomediastinal silhouette is unremarkable. Musculoskeletal: No acute osseous pathology. Midline sternotomy wires are noted. IMPRESSION: 1. No acute cardiopulmonary disease process. 2. COPD changes.
--- NOTE | 2022-11-29 13:41 | ED ---
General Adult HPI - General Chief complaint: Urogenital Stated complaint: UTI, sore throat/neck Time Seen by Provider: 11/29/22 12:00 Source: patient, RN notes reviewed Mode of arrival: ambulatory Limitations: no limitations - History of Present Illness Initial comments: 82-year-old female presents emergency Department chief complaint of cough, UTI symptoms. Patient states she's had recurrent urinary tract infections. Patient states she has frequent urination will follow-up with he and is painful. Patient denies any flank pain. Patient denies any chest pain states that she has a productive cough that just started last 24 hours. Denies sore throat denies ear pain. - Related Data Home Medications Medication Instructions Recorded Confirmed Meclizine [Antivert] 12.5 mg PO TID PRN 04/14/16 02/19/21 Meloxicam [Mobic] 15 mg PO DAILY 02/19/21 02/19/21 Metoprolol Tartrate [Lopressor] 25 mg PO BID-W/MEALS 02/19/21 02/19/21 Pantoprazole Sodium [Protonix] 40 mg PO DAILY 02/19/21 02/19/21 Rosuvastatin [Crestor] 10 mg PO DAILY 02/19/21 02/19/21 Ubidecarenone [Co Q-10] 200 mg PO DAILY 02/19/21 02/19/21 Previous Rx's Medication Instructions Recorded Aspirin 81 mg PO DAILY chew 02/23/21 Ciprofloxacin HCl [Cipro] 500 mg PO BID 10 Days #20 tab 02/23/21 Fluticasone Nasal [place] [Flonase 2 spray EA NOSTRIL DAILY spr 02/23/21 Nasal [place]] Isosorbide Mononitrate ER [Imdur] 30 mg PO DAILY #30 tab.er.24h 02/23/21 amLODIPine [Norvasc] 10 mg PO DAILY #30 tab 02/23/21 lisinopriL [Zestril] 20 mg PO BID #60 tab 02/23/21 Cephalexin [Keflex] 500 mg PO Q6HR #21 cap 11/29/22 Allergies Allergy/AdvReac Type Severity Reaction Status Date / Time Penicillins Allergy Rash/Hives Verified 02/19/21 09:28 Sulfa (Sulfonamide Allergy Rash/Hives Verified 11/29/22 11:58 Antibiotics) metal Allergy pain(had Uncoded 02/19/21 09:28 reaction to knee implant) Review of Systems ROS Statement: Those systems with pertinent positive or pertinent negative responses have been documented in the HPI. ROS Other: All systems not noted in ROS Statement are negative. Past Medical History Past Medical History: Coronary Artery Disease (CAD), Hyperlipidemia, Hypertension, Osteoarthritis (OA) Additional Past Medical History / Comment(s): UTI's, see Dr Spears H & P, Nelli's Disease History of Any Multi-Drug Resistant Organisms: None Reported Past Surgical History: Breast Surgery, Cardiac Ablation, Coronary Bypass/CABG, Heart Catheterization, Hysterectomy, Joint Replacement, Orthopedic Surgery Additional Past Surgical History / Comment(s): cataracts removed, left knee replaced, arthroscopy knee, bilateral shoulder surg., heel spur removed, breast reduction, double bypass, blepharoplasty,3rd digit lt hand repair Past Anesthesia/Blood Transfusion Reactions: Motion Sickness, Postoperative Nausea & Vomiting (PONV) Additional Past Anesthesia/Blood Transfusion Reaction / Comment(s): no problems with prior blood transfusion. Past Psychological History: No Psychological Hx Reported Smoking Status: Never smoker Past Alcohol Use History: None Reported Past Drug Use History: None Reported - Past Family History Sister(s) Family Medical History: Cancer Mother Family Medical History: Coronary Artery Disease (CAD), Diabetes Mellitus Father Family Medical History: Coronary Artery Disease (CAD) Brother(s) Family Medical History: Myocardial Infarction ([place]) Additional Family Medical History / Comment(s): with [place] General Exam Limitations: no limitations General appearance: alert, in no apparent distress Head exam: Present: atraumatic, normocephalic, normal inspection Eye exam: Present: normal appearance, PERRL, EOMI. Absent: scleral icterus, conjunctival injection, periorbital swelling ENT exam: Present: normal exam, mucous membranes moist Neck exam: Present: normal inspection, full ROM. Absent: tenderness, meningismus, lymphadenopathy Respiratory exam: Present: normal lung sounds bilaterally. Absent: respiratory distress, wheezes, rales, rhonchi, stridor Cardiovascular Exam: Present: regular rate, normal rhythm, normal heart sounds. Absent: systolic murmur, diastolic murmur, rubs, gallop, clicks GI/Abdominal exam: Present: soft, normal bowel sounds. Absent: distended, tenderness, guarding, rebound, rigid Back exam: Absent: CVA tenderness (R), CVA tenderness (L) Course Vital Signs 11/29/22 11/29/22 11:53 13:48 Temperature 97.7 F 97.8 F Pulse Rate 68 70 Respiratory 18 18 Rate Blood Pressure 129/71 131/81 O2 Sat by Pulse 98 98 Oximetry Medical Decision Making - Medical Decision Making Was pt. sent in by a medical professional or institution (, PA, FOOD SERVICE ATTENDANT, urgent care, hospital, or long-term...) When possible be specific @ -No Did you speak to anyone other than the patient for history (EMS, parent, family, police, friend...)? What history was obtained from this source @ -No Did you review nursing and triage notes (agree or disagree)? Why? @ -I reviewed and agree with nursing and triage notes Were old charts reviewed (outside hosp., previous admission, EMS record, old EKG, old radiological studies, urgent care reports/EKG's, long-term records)? Report findings @ -No old charts were reviewed Differential Diagnosis (chest pain, altered mental status, abdominal pain women, abdominal pain men, vaginal bleeding, weakness, fever, dyspnea, syncope, headache, dizziness, GI bleed, back pain, seizure, CVA, palpatations, mental health, musculoskeletal)? @ -Differential Abdominal Pain Women: Appendicitis, Cholecystitis, diverticulosis, ischemic bowel, pancreatitis, hepatitis, UTI, gastroenteritis, AAA, incarcerated hernia, bowel obstruction, constipation, inflammatory bowel, hepatitis, peptic ulcer disease, splenic infarction, perforated viscus, vulvitis, ovarian torsion, PID, kidney stone, placenta abruption, this is not meant to be an all-inclusive listle EKG interpreted by me (3pts min.). @ -As above X-rays interpreted by me (1pt min.). @ -None done CT interpreted by me (1pt min.). @ -None done U/S interpreted by me (1pt. min.). @ -None done What testing was considered but not performed or refused? (CT, X-rays, U/S, labs)? Why? @ -None What meds were considered but not given or refused? Why? @ -None Did you discuss the management of the patient with other professionals (professionals i.e. , MAURILIO, FOOD SERVICE ATTENDANT, lab, RT, psych nurse, social insurance analyst, public health professor, teacher, credit or loans officer, director case)? Give summary @ -No Was smoking cessation discussed for >3mins.? @ -No Was critical care preformed (if so, how long)? @ -No Were there social determinants of health that impacted care today? How? (Ho melessness, low income, unemployed, alcoholism, drug addiction, transportation, low edu. Level, literacy, decrease access to med. care, skilled nursing, rehab)? @ -No Was there de-escalation of care discussed even if they declined (Discuss DNR or withdrawal of care, Hospice)? DNR status @ -No What co-morbidities impacted this encounter? (DM, HTN, Smoking, COPD, CAD, Cancer, CVA, ARF, Chemo, Hep., AIDS, mental health diagnosis, sleep apnea, morbid obesity)? @ -None Was patient admitted / discharged? Hospital course, mention meds given and route, prescriptions, significant lab abnormalities, going to OR and other pertinent info. @ -Discharged Patient is evidence urinary tract infection. Patient doesn't recall is productive with a normal x-ray. She is afebrile, hypoxia. Patient discharged on oral antibiotics she'll follow-up with private for recheck and return for worsening symptoms. Undiagnosed new problem with uncertain prognosis? @ -No Drug Therapy requiring intensive monitoring for toxicity (Heparin, Nitro, Insulin, Cardizem)? @ -No Were any procedures done? @ -No Diagnosis/symptom? @ -UTI, cough Acute, or Chronic, or Acute on Chronic? @ -Acute Uncomplicated (without systemic symptoms) or Complicated (systemic symptoms)? @ -uncomplicated. Side effects of treatment? @ -No Exacerbation, Progression, or Severe Exacerbation? @ -No Poses a threat to life or bodily function? How? (Chest pain, [place], [place], pneumonia, PE, COPD, DKA, ARF, appy, cholecystitis, CVA, Diverticulitis, Homicidal, Suicidal, threat to staff... and all critical care pts) @ -No - Lab Data Lab Results 11/29/22 Range/Units 12:03 Urine Color Yellow Urine Appearance Turbid H (Clear) Urine pH 6.0 (5.0-8.0) Ur Specific Etta 1.013 (1.001-1.035) Urine Protein 2+ H (Negative) Urine Glucose (UA) Negative (Negative) Urine Ketones Negative (Negative) Urine Blood Moderate H (Negative) Urine Nitrite Negative (Negative) Urine Bilirubin Negative (Negative) Urine Urobilinogen <2.0 (<2.0) mg/dL Ur Leukocyte Esterase Large H (Negative) Urine RBC 13 H (0-5) /hpf Urine WBC >182 H (0-5) /hpf Ur Squamous Epith Cells 6 H (0-4) /hpf Urine Bacteria Moderate H (None) /hpf Disposition Clinical Impression: UTI (urinary tract infection), Cough Disposition: HOME SELF-CARE Condition: Stable Instructions (If sedation given, give patient instructions): Urinary Tract Infection in Women (ED) Additional Instructions: Please return to the Emergency Department if symptoms worsen or any other concerns. Prescriptions: Cephalexin [Keflex] 500 mg PO Q6HR #21 cap Is patient prescribed a controlled substance at d/c from ED?: No Referrals: Lee Smart MD [Primary Care Provider] - 1-2 days Time of Disposition: 13:41
[2022-11-29 13:49] VITALS: BP 131/81; PULSE 70; TEMP 97.8
== END 2022-11-29 13:49 | disposition home or self-care (01) ==
LOC: EC 11:40
DX: N39.0 Urinary tract infection, site not specified (principal); R05.9 Cough, unspecified; J44.9 Chronic obstructive pulmonary disease, unspecified; I25.10 Atherosclerotic heart disease of native coronary artery without angina pectoris; I10 Essential (primary) hypertension; E78.5 Hyperlipidemia, unspecified; M19.90 Unspecified osteoarthritis, unspecified site; Z79.1 Long term (current) use of non-steroidal anti-inflammatories (NSAID); Z79.899 Other long term (current) drug therapy; Z88.0 Allergy status to penicillin; Z88.1 Allergy status to other antibiotic agents; Z88.2 Allergy status to sulfonamides; Z88.8 Allergy status to other drugs, medicaments and biological substances
CPT/HCPCS: 71046; 81001; 87086; 99283

== ENCOUNTER 2023-08-11 07:34 | Day surgery (SDC) | payer MEDICARE, BC ==
[2023-08-10 12:40] VITALS: BMI 27.1
[~2023-08-11 07:34] MED LIST: ALPRAZolam 0.25 MG TAB PO PRN; ALPRAZolam 0.5 MG TAB PO PRN; ASPIRIN 325 MG TAB PO STA; NITROGLYCERIN SL TABS 0.4 MG TAB SUBLINGUAL PRN
[2023-08-11] MEDS ORDERED: SODIUM CHLORIDE 0.9% 1,000 ML IV ONE ×3 (07:59→18:00)
[2023-08-11] MEDS ORDERED: fentaNYL (PF) 50 MCG/ML 2 ML AMP ONE (09:06)
[2023-08-11] MEDS ORDERED: BENZOCAINE SPRAY 1 CAN TOPICAL ONE (09:32)
[2023-08-11] MEDS ORDERED: MIDAZOLAM 2 MG/2 ML VIAL IVP ONE (09:35)
[2023-08-11] MEDS ORDERED: fentaNYL (PF) 50 MCG/1 ML VIAL IVP ONE (09:35)
[2023-08-11] MEDS ORDERED: LIDOCAINE 1% INJ 10MG/ML (20 ML MDV) ONE (10:35)
[2023-08-11] MEDS ORDERED: LIDOCAINE 1% INJ 10MG/ML (20 ML MDV) SQ ONE (10:52)
[2023-08-11 11:28] LABS: O2 Sat Blood Gas 98.8 %
[2023-08-11 11:33] LABS: O2 Sat Blood Gas 60.9 %
[2023-08-11] MEDS ORDERED: HEPARIN SODIUM 1,000 UN/ML (10ML VL) ONE (11:37)
[2023-08-11] MEDS ORDERED: IOPAMIDOL-370 100ML BTL INJ ONE ×2 (11:41→12:07)
[2023-08-11] MEDS ORDERED: HYDROmorphone 0.5 MG/0.5 ML SYRINGE IVP ONE (11:41)
[2023-08-11] MEDS ORDERED: HEPARIN SODIUM 1,000 UN/ML (10ML VL) IV ONE ×2 (11:41→11:59)
[2023-08-11] MEDS ORDERED: NITROGLYCERIN 1000MCG/10ML SYRINGE INTRACORON ONE (12:02)
[2023-08-11] MEDS ORDERED: CLOPIDOGREL 75 MG TAB ONE (12:03)
[2023-08-11] MEDS ORDERED: CLOPIDOGREL 75 MG TAB PO ONE (12:06)
[2023-08-11] MEDS ORDERED: ACETAMINOPHEN TAB 325 MG TAB PO PRN (12:32)
[2023-08-11] MEDS ORDERED: RX INFO: IV CONTRAST WAS GIVEN 1 EACH MISC MISCELLANE PRN (12:32)
[2023-08-11] MEDS ORDERED: NITROGLYCERIN SL TABS 0.4 MG TAB SUBLINGUAL PRN (12:32)
[2023-08-11] MEDS ORDERED: ATROPINE SULFATE 0.1 MG/ML 10ML SYRINGE IV PRN (12:32)
[2023-08-11] MEDS ORDERED: MAG HYDROX/AL HYDROX/SIMETH 30 ML CUP PO PRN (12:32)
[2023-08-11] MEDS ORDERED: ZOLPIDEM 5 MG TAB PO PRN (12:32)
[2023-08-11] MEDS ORDERED: ALPRAZolam 0.25 MG TAB PO PRN (12:32)
[2023-08-11] MEDS ORDERED: BACLOFEN 10 MG TAB PO PRN (12:47)
[2023-08-11] MEDS ORDERED: MECLIZINE 12.5 MG TAB PO PRN (12:47)
--- NOTE | 2023-08-11 13:28 | CC ---
CARDIAC CATHETERIZATION REPORT PROCEDURE NOTE: 1. Left heart catheterization and coronary angiography. 2. Selective injection of bypass grafts including WOMACK. 3. PTCA and stenting of major diagonal branch with a drug-eluting stent. PERFORMED BY: Dr. Rashmi Weiner. ANESTHESIA: Moderate conscious sedation time was 77 minutes. Patient was administered Versed. Oxygen saturation and EKG were monitored closely. CLINICAL INFORMATION: Ms. Kirsty Castle is an 83-year-old lady who has a known history of CAD with prior bypass surgery in year 1999 with a WOMACK to LAD and a free radial artery graft to the circumflex/ramus intermedius. Since then, she has done fairly well but in 2016 cardiac cath revealed that the grafts were patent and she developed frequent PVCs and underwent a VT ablation. She has hypertension, hyperlipidemia as well. Recently, she has increasing shortness of breath and there is evidence of decreased ejection fraction from about 50% to 40% with ctxzects-uw-uvlyzi mitral regurgitation. Given this, I recommended a transesophageal echo and right and left heart catheterization and brought her in for the procedure. The transesophageal echo was performed by Dr. Landaverde, which revealed that she has a moderate central mitral regurgitation with no primary valve problem, regurgitation was severe. Patient's hemoglobin is 10.1 and may have some relative anemia as well. Right and left heart catheterization was advised. PROCEDURE NOTE: Under local anesthesia and strict aseptic precautions, a 6-Liberian introducer was placed within the right femoral artery and another 8-Liberian introducer in the right femoral vein. With a balloon tipped catheter, I performed right heart catheterization and performed a thermodilution cardiac output as well as obtained the saturations. Subsequently, coronary angiography was performed. I used a standard left Deja catheter for left coronary artery, a Ovi catheter for the right coronary artery and the WOMACK. I used an AR2 catheter for selective injection of the free radial artery graft to the ramus intermedius. I used a pigtail catheter to check LV pressures. Following this, I proceeded to perform intervention of the major diagonal branch. Following the procedure, an Angio-Seal device was used to secure hemostasis for the femoral artery and manual sheath pull was for the femoral vein. The patient tolerated procedure well without complications. Finding details were explained to the patient as well as her family members including 2 daughters and her . I also spoke to Dr. Nance by phone and gave him the details. She has some weight loss, anemia, decreased appetite, I think we should do a complete weight loss workup and Dr. Nance will pursue this as an outpatient. CARDIAC CATHETERIZATION FINDINGS: The right atrial pressure was 6 mmHg, right ventricular pressure was 48/8, pulmonary arterial pressure was 48/12 with a wedge pressure of 14 and a mean pulmonary artery pressure of 24 mmHg. The pulmonary arterial saturation was 63% and femoral arterial saturation was 96%. The Marley cardiac output was 7 L and the thermodilution cardiac output was 4.9 L. There was no shunt. The left ventricular end-diastolic pressure was about 12 mmHg without any gradient across aortic valve. CORONARY ANGIOGRAPHY FINDINGS: Left Main Coronary Artery: Diffuse disease of about 25% to 30%, bifurcates into LAD and circumflex. Left Anterior Descending Coronary Artery: Totally occluded in the midportion after a good-sized diagonal branch. The diagonal now has a 95% critical stenosis. Diagonal is a 2.5 caliber. Left Posterior Circumflex Coronary Artery: This vessel is totally occluded after a small obtuse marginal branch without much antegrade flow. Right Coronary Artery: Large dominant vessel, minor irregularities, no significant disease, distally bifurcates into large PDA and PLV, has no significant disease in the superdominant RCA. Left Internal Mammary Graft to LAD: Graft is widely patent with remarkably good flow. Opacified LAD has minor irregularities, no significant disease is noted. There are small septal and diagonal branches which are also free of significant disease. Free Radial Artery Graft to the Ramus Intermedius: This graft is widely patent without any stenosis and beyond the attachment to the ramus, there is no significant disease within the ramus, only minor irregularities were noted. The left ventriculogram was not performed. FINAL IMPRESSION: This patient has mild pulmonary hypertension, right dominant system, normal filling pressures. No gradient across aortic valve. Total occlusion of mid circumflex and mid LAD. The major diagonal now has a 95% stenosis. Good size, good caliber, good distribution vessel. Free radial artery graft to the ramus as well as WOMACK to LAD are widely patent with good flow. Cardiac output by thermodilution is nearly 5 L and by Marley is about 7 L. RECOMMENDATIONS: I recommended PCI of major diagonal branch and proceeded to perform this in the same setting. PCI PROCEDURE DETAILS: I used a standard left Deja guide catheter to cannulate the left coronary artery. Using a combination of a run-through wire and a 45-degree SuperCross catheter, I crossed the 95% stenosis. Pre-dilated with a 2.0 caliber 8 mm long NC Trek balloon. I deployed a 12 mm long 2.5 caliber Xience stent at 12 atmospheres. The patient did not have significant symptoms or EKG changes. Excellent angiographic result was achieved. The stent size was slightly larger. Good flow was noted. No complications. The patient received 600 mg of Plavix. She will be on aspirin and Plavix combination without interruption for 1 year. The sheath was taken out, and Angio-Seal device used to secure hemostasis. The venous sheath will be pulled manually. The patient was sent to the extended stay unit in stable condition and details and results were discussed with the patient and family members. I expect she will be discharged tomorrow if she remains stable. MMTRINIDAD / ZAIDN: [id number] /
[2023-08-11] MEDS: ONDANSETRON 4 MG/2 ML VIAL ONE ×2 (14:18→18:58)
[2023-08-11 14:57] LABS: Basophils % (A) 0 %; Eosinophils # (A) 0.2 k/uL (0-0.7); Eosinophils % (A) 4 %; HCT 28.8 % (34.0-46.0); HGB 9.5 gm/dL (11.4-16.0); Lymphocytes # (A) 1.1 k/uL (1.0-4.8); Lymphocytes % (A) 18 %; MCH 33.5 pg (25.0-35.0); MCHC 32.9 g/dL (31.0-37.0); MCV 101.8 fL (80.0-100.0); Macrocytosis Slight; Mean Platelet Volume 9.6; Monocytes # (A) 0.4 k/uL (0-1.0); Monocytes % (A) 7 %; Neutrophils # (A) 4.1 k/uL (1.3-7.7); Neutrophils % (A) 69 %; Platelet Count 146 k/uL (150-450); RBC 2.83 m/uL (3.80-5.40); RDW 14.4 % (11.5-15.5)
[2023-08-11 16:13] LABS: African American GFR (CKD) 70 (>60 ml/min/1.73 sqM); Anion Gap 10 mmol/L; Blood Urea Nitrogen 27 mg/dL (7-17); Calcium 8.6 mg/dL (8.4-10.2); Carbon Dioxide 19 mmol/L (22-30); Chloride 110 mmol/L (98-107); Glucose 133 mg/dL (74-99); LDH 191 U/L (120-246); Non-African American GFR(CKD) 61 (>60 ml/min/1.73 sqM); Sodium 139 mmol/L (137-145)
--- NOTE | 2023-08-11 17:16 | P.TEE ---
Description of Procedure(s): Procedure performed: Transesophageal Echocardiogram with color flow doppler, pulsed wave doppler and continuous wave doppler, moderate conscious sedation Moderate conscious sedation: Moderate conscious sedation was supplied with direct supervision of myself using Versed and Fentanyl. Complications: none Indications: Mitral regurgitation History: Patient is a pleasant 83-year-old female who has been having increasing episodes of shortness breath with exertion as well as some lightheadedness, near syncope. Transthoracic echo showed EF of approximately 40% with severe mitral regurgitation. Therefore I was asked to perform SHANEL. PROCEDURE: After the risks, benefits and alternatives of the above mentioned procedure was explained in detail with the patient, informed consent was obtained. Patient was brought to the lab in a fasting state. Patient was given IV Versed and Fentanyl for sedation. The throat was sprayed with Hurricane to anesthetize the throat. A lubricated Omni probe was then introduced into the esophagus and stomach and multiple views were obtained. 2D echo with color flow doppler, pulsed wave doppler and continuous wave doppler was utilized. Agitated saline bubbles were injected to assess for any intra-atrial shunt. The probe was then removed. Patient tolerated the procedure well. Patient was transferred to the post procedure area in stable and satisfactory condition. FINDINGS: 1. The aortic valve is tricuspid with normal function. There is supra- aortic calcification along the right coronary cusp however no actual valvular thickening of the cusp. 2. The mitral valve appears be structurally normal with malcoaptation related to left ventricular dilation, secondary mitral regurgitation. There is moderate to severe mitral regurgitation with vena contracted 0.6 cm, PISA radius 0.9cm at Nyquist 38, only systolic blunting of the left upper and right upper p ulmonary vein all of which is consistent with more moderate mitral regurgitation. 3. Tricuspid valve appears to be normal with mild tricuspid regurgitation. 4. The interatrial septum is intact. No evidence of PFO. 5. Left atrial appendage is free of clot. 6. Left ventricle is mildly dilated with left ventricular ejection fraction 35-40% with global hypokinesis
[2023-08-11 20:18] LABS: HCT 25.7 % (34.0-46.0); HGB 8.6 gm/dL (11.4-16.0); MCH 34.3 pg (25.0-35.0); MCHC 33.7 g/dL (31.0-37.0); MCV 101.9 fL (80.0-100.0); Macrocytosis Slight; Mean Platelet Volume 9.9; Platelet Count 146 k/uL (150-450); RBC 2.52 m/uL (3.80-5.40); RDW 14.6 % (11.5-15.5); WBC 7.4 k/uL (3.8-10.6)
[2023-08-11] MEDS ORDERED: ATORVASTATIN 40 MG TAB PO SCH (21:00)
[2023-08-11] MEDS: SODIUM CHLORIDE 0.9% 1,000 ML IV SCH (21:50)
[2023-08-11] MEDS: SODIUM CHLORIDE 0.9% 1,000 ML in EMPTY BAG 1 BAG IV SCH ×3 (21:51→22:48)
[2023-08-11] MEDS: lisinopriL 20 MG TAB PO SCH (22:48)
[2023-08-12 02:54] LABS: Total Iron Binding Capacity 259 UG/DL (228-460)
[2023-08-12 05:30] LABS: Iron 37 UG/DL (50-170)
[2023-08-12 06:00] LABS: % Iron Saturation 14.29 (12.00-45.00)
[2023-08-12] MEDS: SODIUM CHLORIDE 0.9% 1,000 ML IV SCH (06:47)
[2023-08-12] MEDS: SODIUM CHLORIDE 0.9% 1,000 ML in EMPTY BAG 1 BAG IV SCH (06:47)
[2023-08-12] MEDS ORDERED: PANTOPRAZOLE 40 MG TABLET PO SCH (07:30)
--- NOTE | 2023-08-12 07:46 | DS ---
DISCHARGE SUMMARY DIAGNOSIS: 1. CAD with previous bypass surgery. 2. Severe mitral regurgitation. 3. Ventricular ectopy. 4. History of prior bypass surgery. HOSPITAL COURSE: Mrs. Kirsty Castle was brought in for elective cardiac cath and transesophageal echo because of recent increase in symptoms of shortness of breath and a documented evidence of increasing mitral regurgitation with decreased LV function down from nearly 50-40%. She had moderate to severe mitral regurgitation, was advised cardiac catheterization and also transesophageal echo. Transesophageal echo was performed by Dr. Landaverde, which revealed moderate to severe MR, central, without any structural abnormality of the mitral valve, but there was mild coaptation because of dilatation of the ring. Coronary angiography revealed that her lummi RCA that was never grafted was patent, WOMACK to LAD as well as the free radial artery graft to the ramus were patent. There was lummi diagonal which was of a good caliber diagonal which had a significant 95% stenosis. The LAD and circumflex were occluded in the midportion. The diagonal was stented with a drug-eluting stent. Post procedure while in the [facility], she had a bleeding and a hematoma requiring manual compression on 2 occasions. However, after FemoStop was taken off at 9:30 last night, she is good, she is stable. No further bleeding. There is a moderate area of ecchymosis. No bruit is audible. Hemoglobin is down from 9.5 to 8.6. We will obtain another hemoglobin and BMP this morning. She is ambulating without symptoms. Plan is to increase activity, discharge today, and I will see her in the office again tomorrow. The patient additionally has some weight loss and decreased appetite issues, and this will be worked up as an outpatient, and I spoke to her PCP, Dr. Nance. Plan is to discharge her today, and I will see her in the office tomorrow at 10 a.m. Same home medications plus Plavix 75 mg daily and sublingual nitroglycerin p.r.n. Her ventricular ectopy is pretty much unchanged. She has frequent PVCs, about a 14% burden, but we will continue to follow it. She has had previous ablation for VT in the past. MMODL / IJN: [id number] /
[2023-08-12] MEDS: lisinopriL 20 MG TAB PO SCH (08:33)
[2023-08-12 08:56] VITALS: BP 121/57; PULSE 72; RESP 18; TEMP 97.8
[2023-08-12] MEDS ORDERED: ISOSORBIDE MONONITRATE ER 30 MG TAB.ER.24H PO SCH (09:00)
[2023-08-12] MEDS ORDERED: allopurinoL 100 MG TAB PO SCH (09:00)
[2023-08-12] MEDS ORDERED: MELOXICAM 7.5 MG TAB PO SCH (09:00)
[2023-08-12] MEDS ORDERED: FUROSEMIDE 40 MG TAB PO SCH (09:00)
[2023-08-12] MEDS ORDERED: CLOPIDOGREL 75 MG TAB PO SCH (09:00)
[2023-08-12] MEDS ORDERED: METOPROLOL TARTRATE 25 MG TAB PO SCH (09:00)
[2023-08-12] MEDS ORDERED: amLODIPine 10 MG TAB PO SCH (09:00)
[2023-08-12] MEDS ORDERED: ASPIRIN 81 MG PO SCH (09:00)
[2023-08-12 10:45] LABS: Basophils % (A) 0 %; Eosinophils # (A) 0.2 k/uL (0-0.7); Eosinophils % (A) 3 %; HCT 24.8 % (34.0-46.0); Lymphocytes # (A) 0.9 k/uL (1.0-4.8); Lymphocytes % (A) 12 %; MCHC 32.2 g/dL (31.0-37.0); MCV 102.3 fL (80.0-100.0); Macrocytosis Slight; Mean Platelet Volume 10.2; Monocytes # (A) 0.6 k/uL (0-1.0); Monocytes % (A) 8 %; Neutrophils # (A) 5.4 k/uL (1.3-7.7); Neutrophils % (A) 75 %; Platelet Count 133 k/uL (150-450); RBC 2.42 m/uL (3.80-5.40); RDW 14.9 % (11.5-15.5); WBC 7.2 k/uL (3.8-10.6)
[2023-08-12 11:08] LABS: African American GFR (CKD) 67 (>60 ml/min/1.73 sqM); Anion Gap 7 mmol/L; Blood Urea Nitrogen 22 mg/dL (7-17); Calcium 8.7 mg/dL (8.4-10.2); Carbon Dioxide 21 mmol/L (22-30); Chloride 112 mmol/L (98-107); Glucose 105 mg/dL (74-99); Non-African American GFR(CKD) 58 (>60 ml/min/1.73 sqM); Potassium 4.5 mmol/L (3.5-5.1); Sodium 140 mmol/L (137-145)
== END 2023-08-12 11:42 | disposition home or self-care (01) ==
LOC: CATHCVL 07:34 → 6NMEDSUR 12:17 → 3SCARD 17:06 → CATHCVL 08-12 11:42
PROVIDERS: ATTEND Internal Medicine Interventional Cardiology
DX: I25.10 Atherosclerotic heart disease of native coronary artery without angina pectoris (principal); I34.0 Nonrheumatic mitral (valve) insufficiency; I10 Essential (primary) hypertension; E78.5 Hyperlipidemia, unspecified; I25.82 Chronic total occlusion of coronary artery; I49.3 Ventricular premature depolarization; I27.20 Pulmonary hypertension, unspecified; Z79.02 Long term (current) use of antithrombotics/antiplatelets; Z95.1 Presence of aortocoronary bypass graft; Z79.899 Other long term (current) drug therapy
CPT/HCPCS: 93312; 93320; 93325; 93456; 80048 ×2; 85018; 84260; 82607; 82746; 82810; 83540; 83550; 83615; 83735; 85025 ×2; 85027; C9600; C1760; C1887; C1769 ×4; C1894 ×2; C1874; C1725; J2250; J2405; J2001; J1644; J1170; Q9967; J3010; J2305

== ENCOUNTER 2024-04-21 10:50 | Emergency (ER) | payer MEDICARE, BC ==
[2024-04-21 11:04] VITALS: TEMP 97.9
--- NOTE | 2024-04-21 12:33 | ED ---
Abdominal Pain HPI - General Chief Complaint: Abdominal Pain Stated Complaint: Weakness Time Seen by Provider: 04/21/24 11:00 Source: patient Mode of arrival: EMS Limitations: no limitations - History of Present Illness Initial Comments: 83-year-old female presents emergency department for multiple complaints. Daughter is at bedside and helps right history. The daughter reports that for the past several weeks the patient has been having aggressive outbursts. Patient seems confused and on edge. She has had some weakness and shortness of breath with lightheadedness. She was hospitalized at [facility] and diagnosed with new onset A-fib. Patient did have some medication adjustments. Since the patient has come home they deny any improvement in her symptoms. The patient is extremely fatigued. Daughter states that she will have to lay down after the smallest exertion. She did wear a heart monitor and has an appointment with her cottage parent on . No reported fevers or cough. No lateralizing weakness. No other alleviating, precipitating or modifying factors - Related Data Home Medications Medication Instructions Recorded Confirmed Meclizine [Antivert] 12.5 mg PO TID PRN 04/14/16 08/10/23 Meloxicam [Mobic] 15 mg PO DAILY 02/19/21 08/11/23 Metoprolol Tartrate [Lopressor] 25 mg PO DAILY 02/19/21 08/11/23 Pantoprazole Sodium [Protonix] 40 mg PO DAILY 02/19/21 08/11/23 Ubidecarenone [Co Q-10] 200 mg PO DAILY 02/19/21 08/11/23 Baclofen 5 mg PO TID PRN 08/10/23 08/10/23 Furosemide [Lasix] 40 mg PO DAILY 08/10/23 08/11/23 allopurinoL 100 mg PO DAILY 08/10/23 08/11/23 Atorvastatin [Lipitor] 40 mg PO HS 08/11/23 08/11/23 Previous Rx's Medication Instructions Recorded Aspirin 81 mg PO DAILY chew 02/23/21 Isosorbide Mononitrate ER [Imdur] 30 mg PO DAILY #30 tab.er.24h 02/23/21 amLODIPine [Norvasc] 10 mg PO DAILY #30 tab 02/23/21 lisinopriL [Zestril] 20 mg PO BID #60 tab 02/23/21 Allergies Allergy/AdvReac Type Severity Reaction Status Date / Time Penicillins Allergy Rash/Hives Verified 08/10/23 08:22 Sulfa (Sulfonamide Allergy Rash/Hives Verified 08/10/23 08:22 Antibiotics) metal Allergy pain(had Uncoded 08/10/23 08:22 reaction to knee implant) Review of Systems ROS Statement: Those systems with pertinent positive or pertinent negative responses have been documented in the HPI. ROS Other: All systems not noted in ROS Statement are negative. Past Medical History Past Medical History: Coronary Artery Disease (CAD), Hyperlipidemia, Hypertension, Osteoarthritis (OA) Additional Past Medical History / Comment(s): covid infection Apr 2023,redness and swelling 3rd digit left hand, hx UTI's, [facility] History of Any Multi-Drug Resistant Organisms: None Reported Past Surgical History: Breast Surgery, Cardiac Ablation, Coronary Bypass/CABG, Heart Catheterization, Hysterectomy, Joint Replacement, Orthopedic Surgery Additional Past Surgical History / Comment(s): cataracts removed, left knee replaced,rt knee replaced x2, arthroscopy knee, bilateral shoulder surg., heel spur removed, breast reduction, double bypass, blepharoplasty,3rd digit lt hand repair Past Anesthesia/Blood Transfusion Reactions: Motion Sickness, Postoperative Nausea & Vomiting (PONV) Additional Past Anesthesia/Blood Transfusion Reaction / Comment(s): no problems with prior blood transfusion. Past Psychological History: No Psychological Hx Reported Additional Psychological History / Comment(s): Pt resides with her spouse. She is independent. She drives. Smoking Status: Never smoker Past Alcohol Use History: None Reported Past Drug Use History: None Reported - Past Family History Sister(s) Family Medical History: Cancer Additional Family Medical History / Comment(s): breast CA Mother Family Medical History: Coronary Artery Disease (CAD), Diabetes Mellitus Father Family Medical History: Coronary Artery Disease (CAD) Brother(s) Family Medical History: Myocardial Infarction (VA) Additional Family Medical History / Comment(s): with VA General Exam Limitations: no limitations General appearance: alert, in no apparent distress Head exam: Present: atraumatic, normocephalic, normal inspection Eye exam: Present: normal appearance, PERRL, EOMI. Absent: scleral icterus, conjunctival injection, periorbital swelling ENT exam: Present: normal exam, mucous membranes moist Neck exam: Present: normal inspection. Absent: tenderness, meningismus, lymphad enopathy Respiratory exam: Present: normal lung sounds bilaterally. Absent: respiratory distress, wheezes, rales, rhonchi, stridor Cardiovascular Exam: Present: regular rate, normal rhythm, normal heart sounds. Absent: systolic murmur, diastolic murmur, rubs, gallop, clicks GI/Abdominal exam: Present: soft, normal bowel sounds. Absent: distended, tenderness, guarding, rebound, rigid Extremities exam: Present: normal inspection, full ROM, normal capillary refill. Absent: tenderness, pedal edema, joint swelling, calf tenderness Back exam: Present: normal inspection Neurological exam: Present: alert, oriented X3, CN II-XII intact Psychiatric exam: Present: normal affect, normal mood Skin exam: Present: warm, dry, intact, normal color. Absent: rash Course Vital Signs 04/21/24 04/21/24 04/21/24 11:00 11:18 13:04 Temperature 97.9 F 97.9 F Pulse Rate 76 79 79 Respiratory 16 16 17 Rate Blood Pressure 125/57 126/57 124/79 O2 Sat by Pulse 99 97 96 Oximetry 04/21/24 04/21/24 14:53 15:50 Temperature Pulse Rate 80 77 Respiratory 18 16 Rate Blood Pressure 133/69 134/73 O2 Sat by Pulse 96 95 Oximetry Medical Decision Making - Medical Decision Making Was pt. sent in by a medical professional or institution (, PA, RETAIL ANALYST, urgent care, hospital, or long-term...) When possible be specific @ -No Did you speak to anyone other than the patient for history (EMS, parent, family, police, friend...)? What history was obtained from this source @ -Spoke with daughter for history Did you review nursing and triage notes (agree or disagree)? Why? @ -I reviewed and agree with nursing and triage notes Were old charts reviewed (outside hosp., previous admission, EMS record, old EKG, old radiological studies, urgent care reports/EKG's, long-term records)? Report findings @ -No old charts were reviewed Differential Diagnosis (chest pain, altered mental status, abdominal pain women, abdominal pain men, vaginal bleeding, weakness, fever, dyspnea, syncope, headache, dizziness, GI bleed, back pain, seizure, CVA, palpatations, mental he alth, musculoskeletal)? @ -Differential Weakness: Hypoglycemia, shock, sepsis, hyponatremia, anemia, infection, VA, ETOH, adverse medicine reaction, overdose, stroke, this is not meant to be an all-inclusive list. EKG interpreted by me (3pts min.). @ -Yes and demonstrates sinus rhythm with a rate of 76. TN interval 180. QRS 113. QTc of 455. No acute ST segment elevations. Some PVCs X-rays interpreted by me (1pt min.). @ -Yes and no acute process is identified CT interpreted by me (1pt min.). @ -Yes and no acute process is identified U/S interpreted by me (1pt. min.). @ -None done What testing was considered but not performed or refused? (CT, X-rays, U/S, labs)? Why? @ -None What meds were considered but not given or refused? Why? @ -None Did you discuss the management of the patient with other professionals (professionals i.e. , PA, RETAIL ANALYST, lab, RT, psych nurse, industrial services worker, distillery miller, teacher, operations officer trust department, case management assistant)? Give summary @ -No Was smoking cessation discussed for >3mins.? @ -No Was critical care preformed (if so, how long)? @ -No Were there social determinants of health that impacted care today? How? (Homelessness, low income, unemployed, alcoholism, drug addiction, transportation, low edu. Level, literacy, decrease access to med. care, senior living, rehab)? @ -No Was there de-escalation of care discussed even if they declined (Discuss DNR or withdrawal of care, Hospice)? DNR status @ -No What co-morbidities impacted this encounter? (DM, HTN, Smoking, COPD, CAD, Cancer, CVA, ARF, Chemo, Hep., AIDS, mental health diagnosis, sleep apnea, morbid obesity)? @ -A-fib Was patient admitted / discharged? Hospital course, mention meds given and route, prescriptions, significant lab abnormalities, going to OR and other pertinent info. @ -Upon arrival patient seen and evaluated in hallway 10. Thorough history and physical exam was performed. IV was established. Laboratory studies are conducted. Chest x-ray and CT brain were performed. I did discuss the results with the patient. Patient is requesting discharge home. She would like to follow-up with her primary care doctor in the outpatient setting as well as her cottage parent for further management of her symptoms. Patient was agreeable to this. Patient will be discharged home at this time. Instructed to follow-up and return for any new or worsening symptoms. Patient discharged home in stable condition Undiagnosed new problem with uncertain prognosis? @ -Yes Drug Therapy requiring intensive monitoring for toxicity (Heparin, Nitro, Insulin, Cardizem)? @ -No Were any procedures done? @ -No Diagnosis/symptom? @ -Acute dyspnea, weakness Acute, or Chronic, or Acute on Chronic? @ -Acute Uncomplicated (without systemic symptoms) or Complicated (systemic symptoms)? @ -Complicated Side effects of treatment? @ -No Exacerbation, Progression, or Severe Exacerbation? @ -No Poses a threat to life or bodily function? How? (Chest pain, USA, VA, pneumonia, PE, COPD, DKA, ARF, appy, cholecystitis, CVA, Diverticulitis, Homicidal, Suicidal, threat to staff... and all critical care pts) @ -No - Lab Data Result diagrams: 04/21/24 12:38 04/21/24 12:38 Lab Results 04/21/24 04/21/24 04/21/24 Range/Units 12:38 12:38 12:38 WBC 5.0 (3.8-10.6) k/uL RBC 3.29 L (3.80-5.40) m/uL Hgb 10.7 L (11.4-16.0) gm/dL Hct 31.9 L (34.0-46.0) % MCV 96.9 (80.0-100.0) fL MCH 32.5 (25.0-35.0) pg MCHC 33.5 (31.0-37.0) g/dL RDW 15.1 (11.5-15.5) % Plt Count 178 (150-450) k/uL MPV 8.2 Neutrophils % 60 % Lymphocytes % 22 % Monocytes % 9 % Eosinophils % 6 % Basophils % 0 % Neutrophils # 3.0 (1.3-7.7) k/uL Lymphocytes # 1.1 (1.0-4.8) k/uL Monocytes # 0.4 (0-1.0) k/uL Eosinophils # 0.3 (0-0.7) k/uL Basophils # 0.0 (0-0.2) k/uL PT 10.9 (10.0-12.5) sec INR 1.0 (<1.2) APTT 29.3 (22.0-30.0) sec D-Dimer 0.69 H (<0.60) mg/L FEU Sodium 138 (137-145) mmol/L Potassium 4.2 (3.5-5.1) mmol/L Chloride 109 H (98-107) mmol/L Carbon Dioxide 22 (22-30) mmol/L Anion Gap 7 mmol/L BUN 27 H (7-17) mg/dL Creatinine 1.18 H (0.52-1.04) mg/dL Est GFR (CKD-EPI)AfAm 49 (>60 ml/min/1.73 sqM) Est GFR (CKD-EPI)NonAf 42 (>60 ml/min/1.73 sqM) Glucose 105 H (74-99) mg/dL POC Glucose (mg/dL) (70-110) mg/dL POC Glu Beef Selector ID Calcium 9.4 (8.4-10.2) mg/dL Total Bilirubin 0.7 (0.2-1.3) mg/dL AST 28 (14-36) U/L ALT 19 (4-34) U/L Alkaline Phosphatase 107 (38-126) U/L Troponin I (0.000-0.034) ng/mL Total Protein 6.4 (6.3-8.2) g/dL Albumin 4.0 (3.5-5.0) g/dL TSH 1.160 (0.465-4.680) mIU/L Urine Color Urine Appearance (Clear) Urine pH (5.0-8.0) Ur Specific Union (1.001-1.035) Urine Protein (Negative) Urine Glucose (UA) (Negative) Urine Ketones (Negative) Urine Blood (Negative) Urine Nitrite (Negative) Urine Bilirubin (Negative) Urine Urobilinogen (<2.0) mg/dL Ur Leukocyte Esterase (Negative) Urine RBC (0-5) /hpf Urine WBC (0-5) /hpf Ur Squamous Epith Cells (0-4) /hpf Urine Bacteria (None) /hpf Urine Mucus (None) /hpf Influenza Type A (PCR) (Not Detectd) Influenza Type B (PCR) (Not Detectd) RSV (PCR) (Not Detectd) SARS-CoV-2 (PCR) (Not Detectd) 04/21/24 04/21/24 04/21/24 Range/Units 12:38 12:38 12:38 WBC (3.8-10.6) k/uL RBC (3.80-5.40) m/uL Hgb (11.4-16.0) gm/dL Hct (34.0-46.0) % MCV (80.0-100.0) fL MCH (25.0-35.0) pg MCHC (31.0-37.0) g/dL RDW (11.5-15.5) % Plt Count (150-450) k/uL MPV Neutrophils % % Lymphocytes % % Monocytes % % Eosinophils % % Basophils % % Neutrophils # (1.3-7.7) k/uL Lymphocytes # (1.0-4.8) k/uL Monocytes # (0-1.0) k/uL Eosinophils # (0-0.7) k/uL Basophils # (0-0.2) k/uL PT (10.0-12.5) sec INR (<1.2) APTT (22.0-30.0) sec D-Dimer (<0.60) mg/L FEU Sodium (137-145) mmol/L Potassium (3.5-5.1) mmol/L Chloride (98-107) mmol/L Carbon Dioxide (22-30) mmol/L Anion Gap mmol/L BUN (7-17) mg/dL Creatinine (0.52-1.04) mg/dL Est GFR (CKD-EPI)AfAm (>60 ml/min/1.73 sqM) Est GFR (CKD-EPI)NonAf (>60 ml/min/1.73 sqM) Glucose (74-99) mg/dL POC Glucose (mg/dL) (70-110) mg/dL POC Glu Beef Selector ID Calcium (8.4-10.2) mg/dL Total Bilirubin (0.2-1.3) mg/dL AST (14-36) U/L ALT (4-34) U/L Alkaline Phosphatase (38-126) U/L Troponin I <0.012 (0.000-0.034) ng/mL Total Protein (6.3-8.2) g/dL Albumin (3.5-5.0) g/dL TSH (0.465-4.680) mIU/L Urine Color Light Yellow Urine Appearance Cloudy H (Clear) Urine pH 5.5 (5.0-8.0) Ur Specific Union 1.018 (1.001-1.035) Urine Protein 1+ H (Negative) Urine Glucose (UA) Negative (Negative) Urine Ketones Negative (Negative) Urine Blood Negative (Negative) Urine Nitrite Negative (Negative) Urine Bilirubin Negative (Negative) Urine Urobilinogen <2.0 (<2.0) mg/dL Ur Leukocyte Esterase Large H (Negative) Urine RBC 3 (0-5) /hpf Urine WBC 40 H (0-5) /hpf Ur Squamous Epith Cells 14 H (0-4) /hpf Urine Bacteria Rare H (None) /hpf Urine Mucus Rare H (None) /hpf Influenza Type A (PCR) Not Detected (Not Detectd) Influenza Type B (PCR) Not Detected (Not Detectd) RSV (PCR) Not Detected (Not Detectd) SARS-CoV-2 (PCR) Not Detected (Not Detectd) 04/21/24 Range/Units 13:22 WBC (3.8-10.6) k/uL RBC (3.80-5.40) m/uL Hgb (11.4-16.0) gm/dL Hct (34.0-46.0) % MCV (80.0-100.0) fL MCH (25.0-35.0) pg MCHC (31.0-37.0) g/dL RDW (11.5-15.5) % Plt Count (150-450) k/uL MPV Neutrophils % % Lymphocytes % % Monocytes % % Eosinophils % % Basophils % % Neutrophils # (1.3-7.7) k/uL Lymphocytes # (1.0-4.8) k/uL Monocytes # (0-1.0) k/uL Eosinophils # (0-0.7) k/uL Basophils # (0-0.2) k/uL PT (10.0-12.5) sec INR (<1.2) APTT (22.0-30.0) sec D-Dimer (<0.60) mg/L FEU Sodium (137-145) mmol/L Potassium (3.5-5.1) mmol/L Chloride (98-107) mmol/L Carbon Dioxide (22-30) mmol/L Anion Gap mmol/L BUN (7-17) mg/dL Creatinine (0.52-1.04) mg/dL Est GFR (CKD-EPI)AfAm (>60 ml/min/1.73 sqM) Est GFR (CKD-EPI)NonAf (>60 ml/min/1.73 sqM) Glucose (74-99) mg/dL POC Glucose (mg/dL) 140 H (70-110) mg/dL POC Glu Beef Selector ID Cathie Jefferson Calcium (8.4-10.2) mg/dL Total Bilirubin (0.2-1.3) mg/dL AST (14-36) U/L ALT (4-34) U/L Alkaline Phosphatase (38-126) U/L Troponin I (0.000-0.034) ng/mL Total Protein (6.3-8.2) g/dL Albumin (3.5-5.0) g/dL TSH (0.465-4.680) mIU/L Urine Color Urine Appearance (Clear) Urine pH (5.0-8.0) Ur Specific Union (1.001-1.035) Urine Protein (Negative) Urine Glucose (UA) (Negative) Urine Ketones (Negative) Urine Blood (Negative) Urine Nitrite (Negative) Urine Bilirubin (Negative) Urine Urobilinogen (<2.0) mg/dL Ur Leukocyte Esterase (Negative) Urine RBC (0-5) /hpf Urine WBC (0-5) /hpf Ur Squamous Epith Cells (0-4) /hpf Urine Bacteria (None) /hpf Urine Mucus (None) /hpf Influenza Type A (PCR) (Not Detectd) Influenza Type B (PCR) (Not Detectd) RSV (PCR) (Not Detectd) SARS-CoV-2 (PCR) (Not Detectd) Disposition Clinical Impression: Weakness Disposition: HOME SELF-CARE Condition: Stable Instructions (If sedation given, give patient instructions): Weakness (ED) Additional Instructions: Please see your doctor on Wednesday for further testing. Return for any new or worsening symptoms. I recommend that you see a neurologist for your mood hamlin es and weakness Is patient prescribed a controlled substance at d/c from ED?: No Referrals: Lee Smart MD [Primary Care Provider] - 1-2 days Matheus Vasquez DO [STAFF PHYSICIAN] - 1-2 days Irvin Parnell MD [REFERRING] - 1-2 days Aimee Parnell MD [REFERRING] - 1-2 days Time of Disposition: 15:08
--- NOTE | 2024-04-21 13:07 | CT ---
EXAMINATION TYPE: CT brain wo con CT DLP: 1139.1 mGycm, Automated exposure control for dose reduction was used. DATE OF EXAM: 04/21/2024 12:53 PM COMPARISON: None. CLINICAL INDICATION:Female, 83 years old with history of Altered mental status, Weakness TECHNIQUE: Brain: Multiple axial CT images of the brain were obtained without IV contrast. . Coronal and sagitta l reformats reviewed. FINDINGS: Brain: Extra-axial spaces: No abnormal extra-axial fluid collections. Ventricular system: Within normal limits Cerebral parenchyma: No acute intraparenchymal hemorrhage or mass effect. The boothe-white junction is well differentiated. Scattered hypoattenuating areas are seen within the periventricular and subcort ical white matter. Cerebellum: Unremarkable. Mass effect: No evidence of midline shift. Intracranial vasculature: Atherosclerotic calcifications of the intracranial vessels. Soft tissues: Normal. Calvarium/osseous structures: No depressed skull fracture. Benign hyperostosis frontalis noted. Paranasal sinuses and mastoid air cells: Clear Visualized orbits: Bilateral aphakia IMPRESSION: 1. No acute intracranial process. 2. Nonspecific white matter changes, likely secondary to chronic small vessel ischemic disease. [facility], , 04/21/2024 1:04 PM
[2024-04-21 13:18] LABS: ALT 19 U/L (4-34); AST 28 U/L (14-36); African American GFR (CKD) 49 (>60 ml/min/1.73 sqM); Alkaline Phosphatase 107 U/L (38-126); Anion Gap 7 mmol/L; Blood Urea Nitrogen 27 mg/dL (7-17); Calcium 9.4 mg/dL (8.4-10.2); Carbon Dioxide 22 mmol/L (22-30); Chloride 109 mmol/L (98-107); Glucose 105 mg/dL (74-99); Non-African American GFR(CKD) 42 (>60 ml/min/1.73 sqM); Potassium 4.2 mmol/L (3.5-5.1); Sodium 138 mmol/L (137-145); Total Bilirubin 0.7 mg/dL (0.2-1.3); Total Protein 6.4 g/dL (6.3-8.2)
[2024-04-21 13:19] LABS: Appearance,Urine Cloudy (Clear); Bacteria,Urine Rare /hpf; Bilirubin,Urine Negative (Negative); Blood,Urine Negative (Negative); Color,Urine Light Yellow; Glucose,Urine (UA) Negative (Negative); Ketones,Urine Negative (Negative); Leukocyte Esterase,Urine Large (Negative); Mucus,Urine Rare /hpf; Nitrite,Urine Negative (Negative); PH, Urine 5.5 (5.0-8.0); Partial Thromboplastin Time 29.3 sec (22.0-30.0); Protein,Urine 1+ (Negative); Prothrombin Time 10.9 sec (10.0-12.5); RBC,Urine 3 /hpf (0-5); Specific Gravity,Urine 1.018 (1.001-1.035); Squamous Epithelial Cell,Urine 14 /hpf (0-4); Urobilinogen,Urine <2.0 mg/dL (<2.0); WBC,Urine 40 /hpf (0-5)
[2024-04-21 13:24] LABS: Glucose,Whole Blood 140 mg/dL (70-110)
--- NOTE | 2024-04-21 13:36 | XR ---
EXAMINATION TYPE: XR chest 2V DATE OF EXAM: 04/21/2024 COMPARISON: 11/29/2022 HISTORY: 83-year-old female confusion, altered mental status TECHNIQUE: AP and lateral views FINDINGS: Median sternotomy wires are present with post-CABG clips. Heart upper limits of normal in size. Mild interstitial prominence has a chronic appearance. No consolidation or pleural effusion. [facility] in the m idthoracic spine. Narrowing of the subacromial space on both sides compatible with chronic full-thick ness rotator cuff tears. IMPRESSION: Borderline heart size and chronic changes. No definite acute process. [facility], , 04/21/2024 1:34 PM
[2024-04-21 15:52] VITALS: BP 134/73; PULSE 77; RESP 16
[2024-04-21 15:52] LABS: Basophils % (A) 0 %; Eosinophils # (A) 0.3 k/uL (0-0.7); Eosinophils % (A) 6 %; HCT 31.9 % (34.0-46.0); HGB 10.7 gm/dL (11.4-16.0); Lymphocytes # (A) 1.1 k/uL (1.0-4.8); Lymphocytes % (A) 22 %; MCH 32.5 pg (25.0-35.0); MCHC 33.5 g/dL (31.0-37.0); MCV 96.9 fL (80.0-100.0); Mean Platelet Volume 8.2; Monocytes # (A) 0.4 k/uL (0-1.0); Monocytes % (A) 9 %; Neutrophils % (A) 60 %; Platelet Count 178 k/uL (150-450); RBC 3.29 m/uL (3.80-5.40); RDW 15.1 % (11.5-15.5)
== END 2024-04-21 15:57 | disposition home or self-care (01) ==
LOC: EC 10:50
CPT/HCPCS: 36415; 70450; 71046; 80053; 81001; 84443; 84484; 85025; 85379; 85610; 85730; 87636; 93005; 99285

== ENCOUNTER → 2024-05-02 | Outpatient (CLI) | payer MEDICARE, BC | END | disposition home or self-care (01) | LOC: LABPRL 08:12 | PROVIDERS: ATTEND Internal Medicine Geriatric Medicine | DX: R19.7 Diarrhea, unspecified (principal) | CPT/HCPCS: 87324 ==

== ENCOUNTER 2024-05-03 17:51 | Inpatient (IN) | payer MEDICARE, BC ==
--- NOTE | 2024-05-03 18:47 | ED ---
Weakness HPI - General Chief complaint: Weakness Stated complaint: weakness Time Seen by Provider: 05/03/24 18:25 Source: patient, family, RN notes reviewed Mode of arrival: EMS - History of Present Illness Initial comments: 83-year-old female with past medical history of CAD, hyperlipidemia, hypertension, and atrial fibrillation presenting to the ER via EMS for generalized weakness x 1 month. Daughter is at bedside who explains that patient has been having increasing generalized weakness and lightheadedness when she stands up from a sitting or lying position. Patient lives at home with her , however daughter reports that her and her sister are having to stay at the home full-time to care for patient, as she is becoming unable to care for herself due to the weakness and lightheadedness. They have had 4 ER visits for the same complaint, and they state that workup has returned to normal. They had a [facility] [address] Weiner that they had to cancel due to patient had diarrhea. Patient states that diarrhea has resolved since then a nd bowel movements are now normal. Patient has an appointment with cardiology tomorrow however patient reports she is going to cancel it as she does not believe she can transport patient to the office due to her generalized weakness. Daughter reports patient's appetite is decreased. Patient denies any other symptoms such as chest pain, palpitations, shortness of breath, vomiting, fevers, chills, urinary symptoms, localized weakness. Patient does take Eliquis for atrial fibrillation. - Related Data Home Medications Medication Instructions Recorded Confirmed Meclizine [Antivert] 12.5 mg PO TID PRN 04/14/16 08/10/23 Meloxicam [Mobic] 15 mg PO DAILY 02/19/21 08/11/23 Metoprolol Tartrate [Lopressor] 25 mg PO DAILY 02/19/21 08/11/23 Pantoprazole Sodium [Protonix] 40 mg PO DAILY 02/19/21 08/11/23 Ubidecarenone [Co Q-10] 200 mg PO DAILY 02/19/21 08/11/23 Baclofen 5 mg PO TID PRN 08/10/23 08/10/23 Furosemide [Lasix] 40 mg PO DAILY 08/10/23 08/11/23 allopurinoL 100 mg PO DAILY 08/10/23 08/11/23 Atorvastatin [Lipitor] 40 mg PO HS 08/11/23 08/11/23 Previous Rx's Medication Instructions Recorded Aspirin 81 mg PO DAILY chew 02/23/21 Isosorbide Mononitrate ER [Imdur] 30 mg PO DAILY #30 tab.er.24h 02/23/21 amLODIPine [Norvasc] 10 mg PO DAILY #30 tab 02/23/21 lisinopriL [Zestril] 20 mg PO BID #60 tab 02/23/21 Allergies Allergy/AdvReac Type Severity Reaction Status Date / Time Penicillins Allergy Rash/Hives Verified 08/10/23 08:22 Sulfa (Sulfonamide Allergy Rash/Hives Verified 08/10/23 08:22 Antibiotics) metal Allergy pain(had Uncoded 08/10/23 08:22 reaction to knee implant) Review of Systems ROS Statement: Those systems with pertinent positive or pertinent negative responses have been documented in the HPI. ROS Other: All systems not noted in ROS Statement are negative. Past Medical History Past Medical History: Coronary Artery Disease (CAD), Hyperlipidemia, Hypertension, Osteoarthritis (OA) Additional Past Medical History / Comment(s): covid infection Apr 2023,redness and swelling 3rd digit left hand, hx UTI's, see Dr [facility]'s Disease History of Any Multi-Drug Resistant Organisms: None Reported Past Surgical History: Breast Surgery, Cardiac Ablation, Coronary Bypass/CABG, Heart Catheterization, Hysterectomy, Joint Replacement, Orthopedic Surgery Additional Past Surgical History / Comment(s): cataracts removed, left knee replaced,rt knee replaced x2, arthroscopy knee, bilateral shoulder surg., heel spur removed, breast reduction, double bypass, blepharoplasty,3rd digit lt hand repair Past Anesthesia/Blood Transfusion Reactions: Motion Sickness, Postoperative Nausea & Vomiting (PONV) Additional Past Anesthesia/Blood Transfusion Reaction / Comment(s): no problems with prior blood transfusion. Past Psychological History: No Psychological Hx Reported Smoking Status: Never smoker Past Alcohol Use History: None Reported Past Drug Use History: None Reported - Past Family History Sister(s) Family Medical History: Cancer Additional Family Medical History / Comment(s): breast CA Mother Family Medical History: Coronary Artery Disease (CAD), Diabetes Mellitus Father Family Medical History: Coronary Artery Disease (CAD) Brother(s) Family Medical History: Myocardial Infarction (VA) Additional Family Medical History / Comment(s): with VA General Exam General appearance: alert, in no apparent distress Head exam: Present: atraumatic, normocephalic, normal inspection Eye exam: Present: normal appearance, PERRL, EOMI. Absent: scleral icterus, conjunctival injection, periorbital swelling Respiratory exam: Present: normal lung sounds bilaterally. Absent: respiratory distress, wheezes, rales, rhonchi, stridor Cardiovascular Exam: Present: regular rate, normal rhythm, normal heart sounds. Absent: systolic murmur, diastolic murmur, rubs, gallop, clicks GI/Abdominal exam: Present: soft, normal bowel sounds. Absent: distended, tenderness, guarding, rebound, rigid Extremities exam: Present: normal inspection, full ROM, normal capillary refill. Absent: tenderness, pedal edema, joint swelling, calf tenderness Neurological exam: Present: alert, oriented X3, CN II-XII intact Psychiatric exam: Present: normal affect, normal mood Skin exam: Present: warm, dry, intact, normal color. Absent: rash Course Vital Signs 05/03/24 05/03/24 17:54 20:18 Temperature 97.4 F L Pulse Rate 58 L 56 L Respiratory 18 18 Rate Blood Pressure 131/59 101/60 O2 Sat by Pulse 99 Oximetry Medical Decision Making - Medical Decision Making Was pt. sent in by a medical professional or institution (, PA, DIRECTOR COLLEGE, urgent care, hospital, or fci...) When possible be specific @ -No Did you speak to anyone other than the patient for history (EMS, parent, family, police, friend...)? What history was obtained from this source @ -No Did you review nursing and triage notes (agree or disagree)? Why? @ -I reviewed and agree with nursing and triage notes Were old charts reviewed (outside hosp., previous admission, EMS record, old EKG, old radiological studies, urgent care reports/EKG's, fci records)? Report findings @ -No old charts were reviewed Differential Diagnosis (chest pain, altered mental status, abdominal pain women, abdominal pain men, vaginal bleeding, weakness, fever, dyspnea, syncope, headache, dizziness, GI bleed, back pain, seizure, CVA, palpatations, mental health, musculoskeletal)? @ -Differential Weakness: Hypoglycemia, shock, sepsis, hyponatremia, anemia, infection, VA, ETOH, adverse medicine reaction, overdose, stroke, this is not meant to be an all-inclusive list. EKG interpreted by me (3pts min.). @ -As above X-rays interpreted by me (1pt min.). @ -None done CT interpreted by me (1pt min.). @ -None done U/S interpreted by me (1pt. min.). @ -None done What testing was considered but not performed or refused? (CT, X-rays, U/S, labs)? Why? @ -CT head considered however deferred due to patient had CT brain done 12 days ago for same symptoms What meds were considered but not given or refused? Why? @ -None Did you discuss the management of the patient with other professionals (professionals i.e. , PA, DIRECTOR COLLEGE, lab, RT, psych nurse, social and political studies professor, rabies inspector, teacher, senior officer, gearcase assembler)? Give summary @ -Case was discussed with Dr. Smart who accepts admission Was smoking cessation discussed for >3mins.? @ -No Was critical care preformed (if so, how long)? @ -No Were there social determinants of health that impacted care today? How? (Homelessness, low income, unemployed, alcoholism, drug addiction, transportation, low edu. Level, literacy, decrease access to med. care, usp, rehab)? @ -No Was there de-escalation of care discussed even if they declined (Discuss DNR or withdrawal of care, Hospice)? DNR status @ -No What co-morbidities impacted this encounter? (DM, HTN, Smoking, COPD, CAD, Cancer, CVA, ARF, Chemo, Hep., AIDS, mental health diagnosis, sleep apnea, morbid obesity)? @ -None Was patient admitted / discharged? Hospital course, mention meds given and route, prescriptions, significant lab abnormalities, going to OR and other pertinent info. @ -Admitted. This is an 83-year-old female presenting to ER via EMS for generalized weakness x 1 month with associated lightheadedness is worsening in severity. Patient has had multiple ER visits for same complaint with negative workup. Today, daughter states patient is no longer able to perform daily tasks and daughter is no longer able to assist pt due to severe weakness. Vital signs remarkable for mild bradycardia at 58 bpm, otherwise vitals within normal limits. Laboratory studies including CBC, CMP, coags, troponin remarkable for mildly elevated white count at 11.4 and elevated BUN and creatinine. EKG revea ls normal sinus rhythm with occasional PVCs. Case was discussed with Dr. Smart who accepts admission for further evaluation of generalized weakness and lightheadedness. Patient and daughter are agreeable to this plan. Case was discussed with my ED attending Dr. Oconnor. Undiagnosed new problem with uncertain prognosis? @ -No Drug Therapy requiring intensive monitoring for toxicity (Heparin, Nitro, Insulin, Cardizem)? @ -No Were any procedures done? @ -No Diagnosis/symptom? @ -Generalized weakness Acute, or Chronic, or Acute on Chronic? @ -Acute Uncomplicated (without systemic symptoms) or Complicated (systemic symptoms)? @ -Complicated Side effects of treatment? @ -No Exacerbation, Progression, or Severe Exacerbation? @ -No Poses a threat to life or bodily function? How? (Chest pain, [place], VA, pneumonia, PE, COPD, DKA, ARF, appy, cholecystitis, CVA, Diverticulitis, Homicidal, Suicidal, threat to staff... and all critical care pts) @ -Possibly - Lab Data Result diagrams: 05/03/24 18:52 05/03/24 18:52 Lab Results 05/03/24 05/03/24 05/03/24 Range/Units 18:52 18:52 18:52 WBC 11.4 H (3.8-10.6) k/uL RBC 3.75 L (3.80-5.40) m/uL Hgb 12.1 (11.4-16.0) gm/dL Hct 36.8 (34.0-46.0) % MCV 98.3 (80.0-100.0) fL MCH 32.4 (25.0-35.0) pg MCHC 32.9 (31.0-37.0) g/dL RDW 15.4 (11.5-15.5) % Plt Count 235 (150-450) k/uL MPV 9.3 Neutrophils % 80 % Lymphocytes % 12 % Monocytes % 6 % Eosinophils % 1 % Basophils % 0 % Neutrophils # 9.1 H (1.3-7.7) k/uL Lymphocytes # 1.3 (1.0-4.8) k/uL Monocytes # 0.7 (0-1.0) k/uL Eosinophils # 0.1 (0-0.7) k/uL Basophils # 0.1 (0-0.2) k/uL Macrocytosis Slight PT 12.3 (10.0-12.5) sec INR 1.1 (<1.2) APTT 28.1 (22.0-30.0) sec Sodium 137 (137-145) mmol/L Potassium 5.0 (3.5-5.1) mmol/L Chloride 106 (98-107) mmol/L Carbon Dioxide 17 L (22-30) mmol/L Anion Gap 14 mmol/L BUN 70 H (7-17) mg/dL Creatinine 1.99 H (0.52-1.04) mg/dL Est GFR (CKD-EPI)AfAm 26 (>60 ml/min/1.73 sqM) Est GFR (CKD-EPI)NonAf 22 (>60 ml/min/1.73 sqM) Glucose 128 H (74-99) mg/dL Plasma Lactic Acid Josiah (0.7-2.0) mmol/L Calcium 10.1 (8.4-10.2) mg/dL Total Bilirubin 0.9 (0.2-1.3) mg/dL AST 31 (14-36) U/L ALT 13 (4-34) U/L Alkaline Phosphatase 80 (38-126) U/L Troponin I (0.000-0.034) ng/mL Total Protein 7.1 (6.3-8.2) g/dL Albumin 4.4 (3.5-5.0) g/dL 05/03/24 05/03/24 Range/Units 18:52 18:52 WBC (3.8-10.6) k/uL RBC (3.80-5.40) m/uL Hgb (11.4-16.0) gm/dL Hct (34.0-46.0) % MCV (80.0-100.0) fL MCH (25.0-35.0) pg MCHC (31.0-37.0) g/dL RDW (11.5-15.5) % Plt Count (150-450) k/uL MPV Neutrophils % % Lymphocytes % % Monocytes % % Eosinophils % % Basophils % % Neutrophils # (1.3-7.7) k/uL Lymphocytes # (1.0-4.8) k/uL Monocytes # (0-1.0) k/uL Eosinophils # (0-0.7) k/uL Basophils # (0-0.2) k/uL Macrocytosis PT (10.0-12.5) sec INR (<1.2) APTT (22.0-30.0) sec Sodium (137-145) mmol/L Potassium (3.5-5.1) mmol/L Chloride (98-107) mmol/L Carbon Dioxide (22-30) mmol/L Anion Gap mmol/L BUN (7-17) mg/dL Creatinine (0.52-1.04) mg/dL Est GFR (CKD-EPI)AfAm (>60 ml/min/1.73 sqM) Est GFR (CKD-EPI)NonAf (>60 ml/min/1.73 sqM) Glucose (74-99) mg/dL Plasma Lactic Acid Josiah 1.5 (0.7-2.0) mmol/L Calcium (8.4-10.2) mg/dL Total Bilirubin (0.2-1.3) mg/dL AST (14-36) U/L ALT (4-34) U/L Alkaline Phosphatase (38-126) U/L Troponin I <0.012 (0.000-0.034) ng/mL Total Protein (6.3-8.2) g/dL Albumin (3.5-5.0) g/dL - EKG Data -: EKG Interpreted by Me EKG Comments: EKG reveals normal sinus rhythm with occasional PVCs. Ventricular rate 62 bpm, parable 182, QRS duration 129, QT/QTc 494/499 Disposition Clinical Impression: Weakness Disposition: [facility] Time of Disposition: 22:58
[2024-05-03 19:07] LABS: Basophils # (A) 0.1 k/uL (0-0.2); Basophils % (A) 0 %; Eosinophils # (A) 0.1 k/uL (0-0.7); Eosinophils % (A) 1 %; HCT 36.8 % (34.0-46.0); HGB 12.1 gm/dL (11.4-16.0); Lymphocytes # (A) 1.3 k/uL (1.0-4.8); Lymphocytes % (A) 12 %; MCH 32.4 pg (25.0-35.0); MCHC 32.9 g/dL (31.0-37.0); MCV 98.3 fL (80.0-100.0); Macrocytosis Slight; Mean Platelet Volume 9.3; Monocytes # (A) 0.7 k/uL (0-1.0); Monocytes % (A) 6 %; Neutrophils # (A) 9.1 k/uL (1.3-7.7); Neutrophils % (A) 80 %; Platelet Count 235 k/uL (150-450); RBC 3.75 m/uL (3.80-5.40); RDW 15.4 % (11.5-15.5); WBC 11.4 k/uL (3.8-10.6)
[2024-05-03 19:11] LABS: INR 1.1 (<1.2); Partial Thromboplastin Time 28.1 sec (22.0-30.0); Prothrombin Time 12.3 sec (10.0-12.5)
[2024-05-03 19:15] LABS: ALT 13 U/L (4-34); African American GFR (CKD) 26 (>60 ml/min/1.73 sqM); Anion Gap 14 mmol/L; Blood Urea Nitrogen 70 mg/dL (7-17); Calcium 10.1 mg/dL (8.4-10.2); Carbon Dioxide 17 mmol/L (22-30); Chloride 106 mmol/L (98-107); Glucose 128 mg/dL (74-99); Non-African American GFR(CKD) 22 (>60 ml/min/1.73 sqM); Sodium 137 mmol/L (137-145); Total Bilirubin 0.9 mg/dL (0.2-1.3)
[2024-05-03 19:19] LABS: AST 31 U/L (14-36); Albumin 4.4 g/dL (3.5-5.0); Alkaline Phosphatase 80 U/L (38-126); Total Protein 7.1 g/dL (6.3-8.2)
[2024-05-03] MEDS ORDERED: NALOXONE 0.4 MG/ML 1 ML VIAL IV PRN (22:53)
[2024-05-03] MEDS: MECLIZINE 12.5 MG TAB PO STA (23:05)
[2024-05-04 00:41] LABS: Appearance,Urine Cloudy (Clear); Bacteria,Urine Rare /hpf; Bilirubin,Urine Negative (Negative); Blood,Urine Negative (Negative); Color,Urine Colorless; Glucose,Urine (UA) Negative (Negative); Hyaline Casts,Urine 25 /lpf (0-2); Ketones,Urine Negative (Negative); Leukocyte Esterase,Urine Large (Negative); Mucus,Urine Rare /hpf; Nitrite,Urine Negative (Negative); Protein,Urine Negative (Negative); RBC,Urine 7 /hpf (0-5); Specific Gravity,Urine 1.011 (1.001-1.035); Squamous Epithelial Cell,Urine 10 /hpf (0-4); Urobilinogen,Urine <2.0 mg/dL (<2.0); WBC,Urine 48 /hpf (0-5)
[2024-05-04 08:38] LABS: Appearance,Urine CLR (Clear); Bilirubin,Urine Negative (Negative); Color,Urine Colorless; Glucose,Urine (UA) Negative (Negative); Ketones,Urine Negative (Negative); Protein,Urine Negative (Negative); Specific Gravity,Urine 1.012 (1.001-1.035)
[2024-05-04 08:39] LABS: Blood,Urine Trace (Negative); Leukocyte Esterase,Urine Negative (Negative); Nitrite,Urine Negative (Negative); Urobilinogen,Urine <2.0 mg/dL (<2.0)
[2024-05-04 08:49] LABS: HCT 34.3 % (34.0-46.0); HGB 11.6 gm/dL (11.4-16.0); MCH 33.6 pg (25.0-35.0); MCV 98.7 fL (80.0-100.0); Macrocytosis Slight; Mean Platelet Volume 9.3; Platelet Count 213 k/uL (150-450); RBC 3.47 m/uL (3.80-5.40); RDW 15.5 % (11.5-15.5); WBC 12.1 k/uL (3.8-10.6)
[2024-05-04] MEDS: SODIUM CHLORIDE 0.9% 1,000 ML IV SCH ×2 (08:50→10:27)
[2024-05-04] MEDS ORDERED: NON FORMULARY DRUG (Ubidecarenone [Co Q-10] 100 MG Capsule) PO SCH (09:00)
[2024-05-04] MEDS ORDERED: METOPROLOL TARTRATE 50 MG TAB PO SCH (09:00)
--- NOTE | 2024-05-04 09:04 | US ---
EXAMINATION TYPE: US renals and bladder DATE OF EXAM: 05/04/2024 COMPARISON: 02/22/2021 CLINICAL INDICATION: Female, 83 years old with history of DAVID TECHNIQUE: Grayscale and color Doppler imaging of the bilateral kidneys and urinary bladder: FINDINGS: EXAM MEASUREMENTS: Right Kidney: 9.1 x 4.1 x 3.7 cm Left Kidney: 8.8 x 4.1 x cm Right Kidney: Cystic area seen on previous not well visualized on today's exam. No hydronephrosis. Left Kidney: Benign midpole cyst measures 2.7 x 2.5 x 2.4 cm. No hydronephrosis. Bladder: anechoic Bilateral Jets seen: yes IMPRESSION: 1. Left midpole renal cyst measuring 2.7 cm. The right-sided renal cortical cyst seen back in 2020 no t clearly seen on the present exam. 2. No hydronephrosis on either side. [facility], , 05/04/2024 9:02 AM
[2024-05-04 09:09] LABS: ALT 14 U/L (4-34); AST 25 U/L (14-36); African American GFR (CKD) 25 (>60 ml/min/1.73 sqM); Albumin 4.1 g/dL (3.5-5.0); Albumin/Globulin Ratio 1.6; Alkaline Phosphatase 90 U/L (38-126); Anion Gap 15 mmol/L; Blood Urea Nitrogen 72 mg/dL (7-17); Carbon Dioxide 16 mmol/L (22-30); Chloride 106 mmol/L (98-107); Globulin 2.6 g/dL; Glucose 131 mg/dL (74-99); Magnesium 1.6 mg/dL (1.6-2.3); Non-African American GFR(CKD) 22 (>60 ml/min/1.73 sqM); Potassium 4.3 mmol/L (3.5-5.1); Sodium 137 mmol/L (137-145); Total Bilirubin 0.6 mg/dL (0.2-1.3); Total Protein 6.7 g/dL (6.3-8.2)
[2024-05-04] MEDS: ASPIRIN 81 MG PO SCH (09:20)
[2024-05-04] MEDS: allopurinoL 100 MG TAB PO SCH (09:21)
[2024-05-04] MEDS: APIXABAN 2.5 MG TABLET PO SCH (09:21)
[2024-05-04] MEDS: CLOPIDOGREL 75 MG TAB PO SCH (09:21)
[2024-05-04] MEDS: ISOSORBIDE MONONITRATE ER 30 MG TAB.ER.24H PO SCH (09:22)
[2024-05-04] MEDS: METOPROLOL TARTRATE 12.5 MG TAB PO SCH (09:22)
[2024-05-04] MEDS: amLODIPine 5 MG TAB PO SCH (09:22)
[2024-05-04] MEDS: PANTOPRAZOLE 40 MG TABLET PO SCH (09:24)
--- NOTE | 2024-05-04 10:32 | P.CRDCN ---
History of Present Illness History of present illness: HISTORY OF PRESENT ILLNESS: This is a 83-year-old female with a past medical history significant for atrial fibrillation, coronary artery disease with previous CABG, valvular heart disease including mitral regurgitation, congestive heart failure, hypertension, and hyperlipidemia. Patient follows in the office with Dr. Weiner. We have been asked to see the patient in consultation for bradycardia. Patient examined at the bedside in the emergency room. Patient was brought to the hospital for generalized weakness. Patient has had recurrent visits to the ER for generalized weakness and lightheadedness. Patient used to be very independent and lives with her . However apparently recently the patient's daughter has been having to stay at her house to help take care of her. The patient currently denies having any chest pain or pressure. She denies any shortness of breath. Vital signs are stable. Telemetry reveals sinus mechanism with PVCs. No significant bradycardia noted. Patient was found to have DAVID with creatinine of 1.99. DIAGNOSTICS: - EKG reveals sinus mechanism with PVCs. No signs of acute ischemia. - Laboratory data: WBC 11.4. Hemoglobin 12.1. Platelet count 235. Sodium 137. Potassium 5.0. BUN 70. Creatinine 1.99. Lactic acid 1.5. Troponin negative x 1. - Current home cardiac medications include Eliquis 2.5 mg twice a day, amlodipine 5 mg at night, Lasix 40 mg daily, Imdur 30 mg daily, lisinopril 10 mg daily, Plavix 75 mg daily, metoprolol succinate 50 mg daily, rosuvastatin 10 mg at night, Aldactone 12.5 mg daily - Most recent echocardiogram obtained in July 2023 revealed ejection fraction 40%, trace to mild aortic regurgitation, mild aortic stenosis, severe mitral regurgitation, mild to moderate tricuspid regurgitation -SHANEL performed in July 2023 revealed tricuspid aortic valve with normal function. Super aortic calcification along the right coronary cusp however no actual valvular thickening of the cusp. Mitral valve appears to be structurally normal with malcoaptation related to left ventricular dilation, secondary mitral regurgitation. Moderate to severe mitral regurgitation. Tricuspid valve appears to be normal with mild tricuspid regurgitation. Intra-atrial septum is intact. No evidence of PFO. Left atrial appendage is free of clot. - Cardiac catheterization history: July 2023 revealing right dominant system. Normal filling pressures. Total occlusion of mid circumflex and mid LAD. Major diagonal branch 95% stenosis. Free radial artery graft to ramus as well as WOMACK to LAD are widely patent with good flow. Patient underwent PCI of the major diagonal branch. REVIEW OF SYSTEMS: At the time of my exam: CONSTITUTIONAL: Denies fever or chills. HEENT: Denies blurred vision, vision changes, or eye pain. Denies hemoptysis CARDIOVASCULAR: Denies chest pain. Denies orthopnea. Denies PND. Denies palpitations RESPIRATORY: Denies shortness of breath. GASTROINTESTINAL: Denies abdominal pain. Denies nausea or vomiting. HEMATOLOGIC: Denies bleeding disorders. GENITOURINARY: Denies any blood in urine. SKIN: Denies pruitis. Denies rash. PHYSICAL EXAM: VITAL SIGNS: Reviewed. GENERAL: Well-developed in no acute distress. HEENT: Head is normocephalic. Pupils are equal, round. Sclerae anicteric. Mucous membranes of the mouth are moist. Neck supple. No JVD or thyromegaly LUNGS: Respirations even and unlabored. Lungs essentially clear to auscultation bilaterally. HEART: Regular rate and rhythm. S1 and S2 heard. Systolic murmur noted. ABDOMEN: Soft. Nondistended. Nontender. EXTREMITIES: Normal range of motion. No clubbing or cyanosis. Peripheral pulses intact. No lower extremity edema NEUROLOGIC: Awake and alert. Oriented x 3. ASSESSMENT: Generalized weakness Acute kidney injury Bradycardia, ruled out, telemetry reveals sinus mechanism with PVCs Coronary artery disease with previous CABG and subsequent stenting Paroxysmal atrial fibrillation Valvular heart disease including moderate to severe mitral regurgitation Chronic heart failure with reduced EF, 40%, currently euvolemic Hypertension Hyperlipidemia PLAN: Begin IV fluids at 75 cc an hour. Continue to monitor kidney function. Repeat kidney function in a.m. Hold Lasix, lisinopril, and Aldactone secondary to DAVID Continue additional home cardiac medications Change beta-angel to metoprolol tartrate 12.5 mg twice a day Continue telemetry monitoring Further recommendations pending patient course Nurse practitioner note has been reviewed by physician. Signing provider agrees with the documented findings, assessment, and plan of care documented by ASE CERTIFIED TECHNICIAN as a scribe. Past Medical History Past Medical History: Coronary Artery Disease (CAD), Hyperlipidemia, Hypertensi on, Osteoarthritis (OA) Additional Past Medical History / Comment(s): covid infection Apr 2023,redness and swelling 3rd digit left hand, hx UTI's, [facility] History of Any Multi-Drug Resistant Organisms: None Reported Past Surgical History: Breast Surgery, Cardiac Ablation, Coronary Bypass/CABG, Heart Catheterization, Hysterectomy, Joint Replacement, Orthopedic Surgery Additional Past Surgical History / Comment(s): cataracts removed, left knee replaced,rt knee replaced x2, arthroscopy knee, bilateral shoulder surg., heel spur removed, breast reduction, double bypass, blepharoplasty,3rd digit lt hand repair Past Anesthesia/Blood Transfusion Reactions: Motion Sickness, Postoperative Nausea & Vomiting (PONV) Additional Past Anesthesia/Blood Transfusion Reaction / Comment(s): no problems with prior blood transfusion. Past Psychological History: No Psychological Hx Reported Smoking Status: Never smoker Past Alcohol Use History: None Reported Past Drug Use History: None Reported - Past Family History Sister(s) Family Medical History: Cancer Additional Family Medical History / Comment(s): breast CA Mother Family Medical History: Coronary Artery Disease (CAD), Diabetes Mellitus Father Family Medical History: Coronary Artery Disease (CAD) Brother(s) Family Medical History: Myocardial Infarction ([place]) Additional Family Medical History / Comment(s): with [place] Medications and Allergies Home Medications Medication Instructions Recorded Confirmed Type Meclizine [Antivert] 12.5 mg PO TID PRN 04/14/16 05/04/24 History Isosorbide Mononitrate ER [Imdur] 30 mg PO DAILY #30 tab.er.24h 02/23/21 05/04/24 Rx Baclofen 5 mg PO TID PRN 08/10/23 05/04/24 History Furosemide [Lasix] 40 mg PO DAILY 08/10/23 05/04/24 History allopurinoL 100 mg PO DAILY 08/10/23 05/04/24 History Albuterol Inhaler [Ventolin Hfa 2 puff INHALATION RT-Q6H PRN 05/04/24 05/04/24 History Inhaler] Apixaban [Eliquis] 2.5 mg PO BID 05/04/24 05/04/24 History Clopidogrel [Plavix] 75 mg PO DAILY 05/04/24 05/04/24 History Colchicine [Colcrys] 0.6 mg PO DAILY 05/04/24 05/04/24 History Cranberry (Unknown Dose) 1 tab PO DAILY 05/04/24 05/04/24 History D-Mannose (Unknown Dose) 1 tab PO DAILY 05/04/24 05/04/24 History DULoxetine HCL [Cymbalta] 20 mg PO HS 05/04/24 05/04/24 History Metoprolol Succinate [Toprol XL] 50 mg PO DAILY 05/04/24 05/04/24 History Pantoprazole Sodium [Protonix] 20 mg PO HS 05/04/24 05/04/24 History Rosuvastatin [Crestor] 10 mg PO HS 05/04/24 05/04/24 History Spironolactone [Aldactone] 12.5 mg PO DAILY 05/04/24 05/04/24 History Ubidecarenone [Coenzyme Q10] 200 mg PO HS 05/04/24 05/04/24 History amLODIPine [Norvasc] 5 mg PO HS 05/04/24 05/04/24 History lisinopriL [Zestril] 10 mg PO DAILY 05/04/24 05/04/24 History Allergies Allergy/AdvReac Type Severity Reaction Status Date / Time Penicillins Allergy Rash/Hives Verified 08/10/23 08:22 Sulfa (Sulfonamide Allergy Rash/Hives Verified 08/10/23 08:22 Antibiotics) metal Allergy pain(had Uncoded 08/10/23 08:22 reaction to knee implant) Physical Exam Vitals: Vital Signs Temp Pulse Resp BP Pulse Ox 05/04/24 08:56 97.9 F 54 L 16 127/68 96 05/04/24 06:55 97.5 F L 57 L 18 142/72 96 05/04/24 03:55 97.8 F 58 L 18 128/76 95 05/03/24 23:17 97.8 F 52 L 18 129/75 94 L 05/03/24 20:18 56 L 18 101/60 05/03/24 17:54 97.4 F L 58 L 18 131/59 99 Intake and Output 05/03/24 05/04/24 05/04/24 22:59 06:59 14:59 Other: Weight 77.111 kg Results 05/04/24 08:31 05/04/24 08:31 Cardiac Enzymes 05/03/24 05/03/24 05/04/24 Range/Units 18:52 18:52 08:31 AST 31 25 (14-36) U/L Troponin I <0.012 (0.000-0.034) ng/mL Coagulation 05/03/24 Range/Units 18:52 PT 12.3 (10.0-12.5) sec APTT 28.1 (22.0-30.0) sec CBC 05/03/24 05/04/24 Range/Units 18:52 08:31 WBC 11.4 H 12.1 H (3.8-10.6) k/uL RBC 3.75 L 3.47 L (3.80-5.40) m/uL Hgb 12.1 11.6 (11.4-16.0) gm/dL Hct 36.8 34.3 (34.0-46.0) % Plt Count 235 213 (150-450) k/uL Comprehensive Metabolic Panel 05/03/24 05/04/24 Range/Units 18:52 08:31 Sodium 137 137 (137-145) mmol/L Potassium 5.0 4.3 (3.5-5.1) mmol/L Chloride 106 106 (98-107) mmol/L Carbon Dioxide 17 L 16 L (22-30) mmol/L BUN 70 H 72 H (7-17) mg/dL Creatinine 1.99 H 2.02 H (0.52-1.04) mg/dL Glucose 128 H 131 H (74-99) mg/dL Calcium 10.1 10.0 (8.4-10.2) mg/dL AST 31 25 (14-36) U/L ALT 13 14 (4-34) U/L Alkaline Phosphatase 80 90 (38-126) U/L Total Protein 7.1 6.7 (6.3-8.2) g/dL Albumin 4.4 4.1 (3.5-5.0) g/dL Current Medications Generic Name Dose Route Start Last Admin Trade Name Freq PRN Reason Stop Dose Admin Allopurinol 100 mg 05/04/24 09:00 05/04/24 09:21 Allopurinol 100 Mg Tab PO 100 mg DAILY ALEX Administration Amlodipine Besylate 5 mg 05/04/24 09:00 05/04/24 09:22 Amlodipine 5 Mg Tab PO 5 mg DAILY ALEX Administration Apixaban 2.5 mg 05/04/24 09:00 05/04/24 09:21 Apixaban 2.5 Mg Tablet PO 2.5 mg BID ALEX Administration Protocol Aspirin 81 mg 05/04/24 09:00 05/04/24 09:20 Aspirin 81 Mg PO 81 mg DAILY ALEX Administration Atorvastatin Calcium 40 mg 05/04/24 21:00 Atorvastatin 40 Mg Tab PO HS ALEX Baclofen 5 mg 05/04/24 08:33 Baclofen 10 Mg Tab PO TID PRN Pain Clopidogrel Bisulfate 75 mg 05/04/24 09:00 05/04/24 09:21 Clopidogrel 75 Mg Tab PO 75 mg DAILY ALEX Administration Sodium Chloride 1,000 mls @ 75 mls/hr 05/04/24 08:15 05/04/24 08:50 Saline 0.9% IV 75 mls/hr .[id number] ALEX Administration Ceftriaxone Sodium 1 gm/ 50 mls @ 100 mls/hr 05/04/24 09:00 05/04/24 08:50 Sodium Chloride IVPB 100 mls/hr Q24HR ALEX Administration Protocol Sodium Chloride 1,000 mls @ 75 mls/hr 05/04/24 08:45 Saline 0.9% IV .[id number] ALEX Isosorbide Mononitrate 30 mg 05/04/24 09:00 05/04/24 09:22 Isosorbide Mononitrate Er 30 Mg Tab.Er.24h PO 30 mg DAILY ALEX Administration Metoprolol Tartrate 12.5 mg 05/04/24 09:00 05/04/24 09:22 Metoprolol Tartrate 12.5 Mg Tab PO 12.5 mg BID ALEX Administration Naloxone HCl 0.2 mg 05/03/24 22:53 Naloxone 0.4 Mg/Ml 1 Ml Vial IV Q2M PRN Opioid Reversal Pantoprazole Sodium 40 mg 05/04/24 09:00 05/04/24 09:24 Pantoprazole 40 Mg Tablet PO 40 mg [id number] ALEX Administration Intake and Output 05/03/24 05/04/24 05/04/24 22:59 06:59 14:59 Other: Weight 77.111 kg 05/04/24 08:31 05/04/24 08:31
--- NOTE | 2024-05-04 12:23 | P.NPCON ---
History of Present Illness - Reason for Consult acute renal failure - History of Present Illness Reason for consultation: Acute kidney injury History of present illness: Patient is 83-year-old female seen in renal consultation for acute kidney injury. Patient was seen and examined in the emergency room. Patient came to the hospital due to generalized weakness and dizziness. Patient states symptoms have been going on for about a month now. She states oral intake has been fair but decreased from usual. She denies vomiting or diarrhea. Patient states she has been feeling dizzy when she changes positions. She has been staying with her family but is noted in records that it was becoming difficult for the patient to provide care for herself. She was taking diuretics and antihypertensives including lisinopril outpatient which are currently held. She is currently receiving IV fluids with normal saline running at 75 cc an hour. Hemodynamically stable. Creatinine was 1.9 on admission and is stable at 2.02 today. Baseline creatinine near 0.9 from August 2023. No hydronephrosis noted on kidney ultrasound. Left kidney atrophic. Patient is noted to be bradycardic with a heart rate in the 50s for which cardiology is following. Vital signs are stable. General: No acute distress. HEENT: Head exam is unremarkable. LUNGS: No audible rhonchi or wheezes. HEART: Bradycardic. ABDOMEN: Nontender. EXTREMITITES: No edema. Past Medical History Past Medical History: Coronary Artery Disease (CAD), Hyperlipidemia, Hypertension, Osteoarthritis (OA) Additional Past Medical History / Comment(s): covid infection Apr 2023,redness and swelling 3rd digit left hand, hx UTI's, see Dr Spears [facility] & [facility], [facility]'s Disease History of Any Multi-Drug Resistant Organisms: None Reported Past Surgical History: Breast Surgery, Cardiac Ablation, Coronary Bypass/CABG, Heart Catheterization, Hysterectomy, Joint Replacement, Orthopedic Surgery Additional Past Surgical History / Comment(s): cataracts removed, left knee replaced,rt knee replaced x2, arthroscopy knee, bilateral shoulder surg., heel spur removed, breast reduction, double bypass, blepharoplasty,3rd digit lt hand repair Past Anesthesia/Blood Transfusion Reactions: Motion Sickness, Postoperative Nausea & Vomiting (PONV) Additional Past Anesthesia/Blood Transfusion Reaction / Comment(s): no problems with prior blood transfusion. Past Psychological History: No Psychological Hx Reported Smoking Status: Never smoker Past Alcohol Use History: None Reported Past Drug Use History: None Reported - Past Family History Sister(s) Family Medical History: Cancer Additional Family Medical History / Comment(s): breast CA Mother Family Medical History: Coronary Artery Disease (CAD), Diabetes Mellitus Father Family Medical History: Coronary Artery Disease (CAD) Brother(s) Family Medical History: Myocardial Infarction ([place]) Additional Family Medical History / Comment(s): with [place] Medications and Allergies Home Medications Medication Instructions Recorded Confirmed Type Meclizine [Antivert] 12.5 mg PO TID PRN 04/14/16 05/04/24 History Isosorbide Mononitrate ER [Imdur] 30 mg PO DAILY #30 tab.er.24h 02/23/21 05/04/24 Rx Baclofen 5 mg PO TID PRN 08/10/23 05/04/24 History Furosemide [Lasix] 40 mg PO DAILY 08/10/23 05/04/24 History allopurinoL 100 mg PO DAILY 08/10/23 05/04/24 History Albuterol Inhaler [Ventolin Hfa 2 puff INHALATION RT-Q6H PRN 05/04/24 05/04/24 History Inhaler] Apixaban [Eliquis] 2.5 mg PO BID 05/04/24 05/04/24 History Clopidogrel [Plavix] 75 mg PO DAILY 05/04/24 05/04/24 History Colchicine [Colcrys] 0.6 mg PO DAILY 05/04/24 05/04/24 History Cranberry (Unknown Dose) 1 tab PO DAILY 05/04/24 05/04/24 History D-Mannose (Unknown Dose) 1 tab PO DAILY 05/04/24 05/04/24 History DULoxetine HCL [Cymbalta] 20 mg PO HS 05/04/24 05/04/24 History Metoprolol Succinate [Toprol XL] 50 mg PO DAILY 05/04/24 05/04/24 History Pantoprazole Sodium [Protonix] 20 mg PO HS 05/04/24 05/04/24 History Rosuvastatin [Crestor] 10 mg PO HS 05/04/24 05/04/24 History Spironolactone [Aldactone] 12.5 mg PO DAILY 05/04/24 05/04/24 History Ubidecarenone [Coenzyme Q10] 200 mg PO HS 05/04/24 05/04/24 History amLODIPine [Norvasc] 5 mg PO HS 05/04/24 05/04/24 History lisinopriL [Zestril] 10 mg PO DAILY 05/04/24 05/04/24 History Allergies Allergy/AdvReac Type Severity Reaction Status Date / Time Penicillins Allergy Rash/Hives Verified 08/10/23 08:22 Sulfa (Sulfonamide Allergy Rash/Hives Verified 08/10/23 08:22 Antibiotics) metal Allergy pain(had Uncoded 08/10/23 08:22 reaction to knee implant) Physical Exam Vitals: Vital Signs Temp Pulse Resp BP Pulse Ox 05/04/24 08:56 97.9 F 54 L 16 127/68 96 05/04/24 06:55 97.5 F L 57 L 18 142/72 96 05/04/24 03:55 97.8 F 58 L 18 128/76 95 05/03/24 23:17 97.8 F 52 L 18 129/75 94 L 05/03/24 20:18 56 L 18 101/60 05/03/24 17:54 97.4 F L 58 L 18 131/59 99 Intake and Output 05/03/24 05/04/24 05/04/24 22:59 06:59 14:59 Other: Weight 77.111 kg Results - Lab Results Most recent lab results Calcium 10.0 mg/dL (8.4-10.2) 05/04/24 08:31 Magnesium 1.6 mg/dL (1.6-2.3) 05/04/24 08:31 05/04/24 08:31 05/04/24 08:31 Assessment and Plan Plan: Assessment: 1. Acute kidney injury secondary to ATN secondary to hypovolemia, further worsened with the use of diuretics and ANDRÉS inhibitor, and bradycardia. Creatinine stable at 2.02 today. Baseline creatinine near 1. No hydronephrosis noted on kidney ultrasound. UA benign. 2. Chronic systolic CHF with ejection fraction of 40% with moderate to severe mitral regurgitation. 3. Coronary artery disease status post CABG and subsequent stenting. 4. Benign hypertension. Controlled. 5. Metabolic acidosis secondary to acute kidney injury and IV fluids. Plan: Change IV fluids to bicarb drip. Continue to hold diuretics and lisinopril for now. Avoid nephrotoxins. Continue to monitor renal function and urine output. Thank you for the consultation. I will continue to follow the patient with you during her hospital stay.
[2024-05-04] MEDS: DEXTROSE 5% IN WATER 1,000 ML with SODIUM BICARB (1 MEQ/ML) 150 ML IV SCH (14:25)
[2024-05-04] MEDS: ATORVASTATIN 40 MG TAB PO SCH (20:10)
[2024-05-04] MEDS ORDERED: ATORVASTATIN 40 MG TAB PO SCH (21:00)
--- NOTE | 2024-05-04 21:24 | P.HPIM ---
History of Present Illness H&P Date: 05/04/24 HISTORY OF PRESENT ILLNESS: 83-year-old one of my office patient with longstanding history of atrial fibrillation, coronary artery disease, cardiomyopathy with ejection fraction 35- 40 percentile, hypertension, hyperlipidemia, Mnire disease, chronic kidney disease, bilateral kidney cyst, chronic history of vertigo, history of anemia post blood transfusion, mild protein calorie malnutrition, chronic arthritis with severe problem with mobility who was hospitalized twice in the last 4 weeks at [facility] first time for 24 hours admitted on 04/02/2024 until 04/04/2024 for acute cystitis, A-fib with RVR, anemia, acute kidney injury and debility was treated and taking care of and sent home on 03/31/2024 ,She is return to the emergency department again 04/06 till 04/07/2024 for worsening shortness of breath and dyspnea with what seems to be elevated proBNP consistent with congestive heart failure along with A-fib with RVR and acute kidney injury was treated seen by [facility] hospitalist along with cardiology treated aggressive enough and was discharged home this time on 04/07/2024 on adjusted medical management. Noticed by the family that patient has not been doing well Complaining of generalized weakness lightheadedness and worsening dyspnea and shortness of breath very restless not been able to ambulate and walk and has been having problem with presyncope like symptoms along with worsening burning frequency urgency hesitancy and hematuria. She had total of 4 visit to the emergency department [facility] last few weeks with workup coming to some degree not showing any major abnormality. This time found to have significant acute kidney injury with bun of 70 creatinine of 1.99 with UA showing very large amount of leukocyte Estrace along with white blood cell and red blood cell was diagnosed with possible acute urinary tract infection with early sepsis lactic acid is 1.5 with white blood cell elevated at 11.4. Was giving 1 g of Rocephin continue hydration with 75 cc an hour of 0.9 normal saline consult nephrology and will consult cardiology as well. She is having still A-fib with RVR with elevated proBNP from last time was in the other hospital was treated apparently and felt slightly better. Again patient has history of Mnire disease with known chronic dizziness and abnormal balance and gait has not been subtle continue to have symptom what seems probably had an acute episode beside her current complaint. Patient be admitted to the hospital at this point for the above problem. REVIEW OF SYSTEMS: CONSTITUTIONAL: Well-developed no acute respiratory distress. EYES: No icterus sclerae, no conjunctivitis. EARS, NOSE, MOUTH, THROAT, and FACE: No sore throat, lymphadenopathy, carotid bruits or deformity. RESPIRATORY: Mild shortness of breath no cough or wheezes. CARDIOVASCULAR: Positive PND orthopnea palpitation. GASTROINTESTINAL: Slight abdominal pain and discomfort with nausea no change in bowel habit no diarrhea. : Continue to have incontinence with burning urination frequency urgency and hesitancy with worsening symptom and significant change in color to urine. Also patient has acute recurrent acute on chronic kidney disease. INTEGUMENT/BREAST: Negative for any muscular injury with mild osteoarthritis.. HEMATOLOGIC/LYMPHATIC: Negative for bleed or purpura. History of anemia with no acute bleed. MUSCULOSKELTAL: Generalized myalgia and arthralgia. NEURLOGICAL: No LOC, Sz presyncope with abnormal balance and gait with severe dizziness history of Mnire disease previous history of TIA abnormal balance and gait. BEHAVIORAL/PSYCH: Negative. ENDOCRINE: Negative. PHYSICAL EXAMINATION: General Appearance: Alert, cooperative, no distress, appears stated age. Neck HEENT: Supple, no lymphadenopathy, no thyroid enlargement, no carotid bruits. Lungs: Decreased breath sound bilaterally fine rhonchi no crackles or wheezes. Chest Wall: Decreased expansion with deep inspiration no tenderness and no deformity was found on exam, no costochondral pain or discomfort. Heart: Irregular rate and rhythm, S1, S2 positive S3 positive systolic murmur with mild tachycardia Back: Symmetric, no curvature, ROM normal, no CVA tenderness. Abdomen: Soft, non-tender, bowel sounds active all four quadrants, slight discomfort lower abdominal region area no rebound or rigidity. Extremities: Extremities normal, atraumatic, no cyanosis or edema. Pulses: 2+ and symmetric. Skin: Skin color, texture, tugor normal, no rashes or lesions. Neurologic: Alert oriented x3 cranial nerves II through XII intact, positive generalized weakness bilaterally severe abnormal balance and gait and again quite nystagmus and dizziness when trying to move her head. ASSESSMENT AND PLAN: _Acute kidney injury with chronic kidney disease: Continue hydration, consult nephrology apparently had seen nephrology in the other hospital as well and she continued to have slight decline in kidney function repeatedly. _Severe dizziness with history of Mnire disease with abnormal balance and gait will consult neurology at this point continue current management watch symptoms carefully patient need probably to move with help of PT OT and might require short-term rehab. _Severe cardiomyopathy with ejection fraction of 30-40 percentile Has been seeing cardiology regularly will resume home medication she was on spironolactone and lisinopril along with furosemide and all will create more damage to the kidney which will be held for now till her kidney function better. _A-fib with RVR: Pulse rate is doing better so far continue metoprolol tartrate 12.5 mg twice a day continue Eliquis 2.5 mg twice a day. _UTI with early sign of sepsis: Patient be on Rocephin 1 g daily waiting for the final culture. _Hyperlipidemia: Has been on rosuvastatin 10 mg a day switch in house to atorvastatin 40 mg daily. _Recurrent angina and atherosclerotic heart disease: Remain on amlodipine,_metoprolol, isosorbide mononitrate along with lisinopril resume home medication resume ANDRÉS when safe. _Debility with worsening mobility combined between cardiomyopathy, generalized weakness, Mnire disease, severe arthritis, severe degenerative disc disease with all of the above making patient not safe to ambulate and walk and have been having presyncope like and multiple episode of fall with no injury so far to be watched quite carefully will require PT OT titrate management gradually. _Hypertension: Up till now was on amlodipine, lisinopril, metoprolol along with spironolactone. _Previous history of TIA/CVA_: Has been on Plavix along with secondary prevention with cholesterol-lowering agent along with hypertensive management. _History of gout: With no flareup remain on allopurinol 100 mg daily. Still on colchicine on as-needed basis had apparently recent episode. _Hyperglycemia with no episode of diabetes so far no full diagnosis continue Accu-Chek with sliding scales coverage. _GI prophylaxis: Remain on pantoprazole. _DVT prophylaxis: Remain on anticoagulation with Eliquis. CODE STATUS: Full code. Admit patient to the inpatient service for more than 2 night stay. Past Medical History Past Medical History: Coronary Artery Disease (CAD), Hyperlipidemia, Hyperte nsion, Osteoarthritis (OA) Additional Past Medical History / Comment(s): covid infection Apr 2023,redness and swelling 3rd digit left hand, hx UTI's, see Dr [facility] History of Any Multi-Drug Resistant Organisms: None Reported Past Surgical History: Breast Surgery, Cardiac Ablation, Coronary Bypass/CABG, Heart Catheterization, Hysterectomy, Joint Replacement, Orthopedic Surgery Additional Past Surgical History / Comment(s): cataracts removed, left knee replaced,rt knee replaced x2, arthroscopy knee, bilateral shoulder surg., heel spur removed, breast reduction, double bypass, blepharoplasty,3rd digit lt hand repair Past Anesthesia/Blood Transfusion Reactions: Motion Sickness, Postoperative Nausea & Vomiting (PONV) Additional Past Anesthesia/Blood Transfusion Reaction / Comment(s): no problems with prior blood transfusion. Past Psychological History: No Psychological Hx Reported Smoking Status: Never smoker Past Alcohol Use History: None Reported Past Drug Use History: None Reported - Past Family History Sister(s) Family Medical History: Cancer Additional Family Medical History / Comment(s): breast CA Mother Family Medical History: Coronary Artery Disease (CAD), Diabetes Mellitus Father Family Medical History: Coronary Artery Disease (CAD) Brother(s) Family Medical History: Myocardial Infarction (NM) Additional Family Medical History / Comment(s): with NM Medications and Allergies Home Medications Medication Instructions Recorded Confirmed Type Meclizine [Antivert] 12.5 mg PO TID PRN 04/14/16 05/04/24 History Isosorbide Mononitrate ER [Imdur] 30 mg PO DAILY #30 tab.er.24h 02/23/21 05/04/24 Rx Baclofen 5 mg PO TID PRN 08/10/23 05/04/24 History Furosemide [Lasix] 40 mg PO DAILY 08/10/23 05/04/24 History allopurinoL 100 mg PO DAILY 08/10/23 05/04/24 History Albuterol Inhaler [Ventolin Hfa 2 puff INHALATION RT-Q6H PRN 05/04/24 05/04/24 History Inhaler] Apixaban [Eliquis] 2.5 mg PO BID 05/04/24 05/04/24 History Clopidogrel [Plavix] 75 mg PO DAILY 05/04/24 05/04/24 History Colchicine [Colcrys] 0.6 mg PO DAILY 05/04/24 05/04/24 History Cranberry (Unknown Dose) 1 tab PO DAILY 05/04/24 05/04/24 History D-Mannose (Unknown Dose) 1 tab PO DAILY 05/04/24 05/04/24 History DULoxetine HCL [Cymbalta] 20 mg PO HS 05/04/24 05/04/24 History Metoprolol Succinate [Toprol XL] 50 mg PO DAILY 05/04/24 05/04/24 History Pantoprazole Sodium [Protonix] 20 mg PO HS 05/04/24 05/04/24 History Rosuvastatin [Crestor] 10 mg PO HS 05/04/24 05/04/24 History Spironolactone [Aldactone] 12.5 mg PO DAILY 05/04/24 05/04/24 History Ubidecarenone [Coenzyme Q10] 200 mg PO HS 05/04/24 05/04/24 History amLODIPine [Norvasc] 5 mg PO HS 05/04/24 05/04/24 History lisinopriL [Zestril] 10 mg PO DAILY 05/04/24 05/04/24 History Allergies Allergy/AdvReac Type Severity Reaction Status Date / Time Penicillins Allergy Rash/Hives Verified 08/10/23 08:22 Sulfa (Sulfonamide Allergy Rash/Hives Verified 08/10/23 08:22 Antibiotics) metal Allergy pain(had Uncoded 08/10/23 08:22 reaction to knee implant) Physical Exam Vitals: Vital Signs Temp Pulse Resp BP Pulse Ox 05/03/24 23:17 97.8 F 52 L 18 129/75 94 L 05/03/24 20:18 56 L 18 101/60 05/03/24 17:54 97.4 F L 58 L 18 131/59 99 Intake and Output 05/03/24 05/03/24 05/04/24 14:59 22:59 06:59 Other: Weight 77.111 kg Results CBC & Chem 7: 05/04/24 08:31 05/04/24 08:31 Labs: Abnormal Lab Results - Last 24 Hours (Table) 05/03/24 05/03/24 05/03/24 Range/Units 18:52 18:52 23:59 WBC 11.4 H (3.8-10.6) k/uL RBC 3.75 L (3.80-5.40) m/uL Neutrophils # 9.1 H (1.3-7.7) k/uL Carbon Dioxide 17 L (22-30) mmol/L BUN 70 H (7-17) mg/dL Creatinine 1.99 H (0.52-1.04) mg/dL Glucose 128 H (74-99) mg/dL Urine Appearance Cloudy H (Clear) Ur Leukocyte Esterase Large H (Negative) Urine RBC 7 H (0-5) /hpf Urine WBC 48 H (0-5) /hpf Ur Squamous Epith Cells 10 H (0-4) /hpf Urine Bacteria Rare H (None) /hpf Hyaline Casts 25 H (0-2) /lpf Urine Mucus Rare H (None) /hpf
[2024-05-05 06:07] LABS: Glucose,Whole Blood 121 mg/dL (70-110)
[2024-05-05 09:11] LABS: HCT 30.9 % (37.2-46.3); HGB 10.6 g/dL (12.0-15.0); MCH 32.7 pg (27.0-32.0); MCHC 34.3 g/dL (32.0-37.0); MCV 95.4 FL (80.0-97.0); Mean Platelet Volume 12.6 FL (9.5-12.2); NRBC Per 100 WBC 0 X 10*3/uL (0.00-0.01); Platelet Count 181 X 10*3/uL (140-440); RBC 3.24 X 10*6/uL (4.10-5.20); RDW 15.4 % (11.5-14.5); WBC 9.79 X 10*3/uL (4.50-10.00)
[2024-05-05 09:38] LABS: ALT 8 U/L (8-44); AST 20 U/L (13-35); Albumin 3.6 g/dL (3.8-4.9); Albumin/Globulin Ratio 1.64 Ratio (1.60-3.17); Alkaline Phosphatase 91 U/L (41-126); BUN/Creat Ratio 35.72 Ratio (12.00-20.00); Blood Urea Nitrogen 64.3 mg/dL (9.0-27.0); Calcium 9.4 mg/dL (8.7-10.3); Carbon Dioxide 21.9 mmol/L (21.6-31.8); Chloride 102 mmol/L (96-109); Globulin 2.2 g/dL (1.6-3.3); Glucose 104 mg/dL (70-110); Magnesium 1.7 mg/dL (1.5-2.4); Potassium 3.8 mmol/L (3.5-5.5); Sodium 136 mmol/L (135-145); Total Bilirubin 0.5 mg/dL (0.3-1.2); Total Protein 5.8 g/dL (6.2-8.2)
--- NOTE | 2024-05-05 11:46 | P.PN ---
Subjective Patient is seen in follow-up for acute kidney injury. Renal function little improved. Orthostatic vital signs noted to be positive. Currently on bicarb drip. Acidosis improved. Denies chest pain or shortness of breath. Oral intake fair. Vital signs are stable. Orthostatic positive. General: No acute distress. HEENT: Head exam is unremarkable. LUNGS: No audible rhonchi or wheezes. HEART: Rate and Rhythm are regular. ABDOMEN: Nontender. EXTREMITITES: No edema. Objective - Vital Signs Vital signs: Vital Signs Temp 98 F 05/05/24 06:50 Pulse 60 05/05/24 09:10 Resp 17 05/05/24 09:10 BP 120/68 05/05/24 09:10 Pulse Ox 95 05/05/24 06:50 FiO2 Intake & Output 05/04/24 05/05/24 05/05/24 18:59 06:59 18:59 Intake Total 111 118 Balance 111 118 Weight 77.111 kg Intake: Oral 111 118 Other: Voiding Method Toilet Toilet # Voids 2 - Labs CBC & Chem 7: 05/05/24 04:39 05/05/24 04:39 Labs: Abnormal Lab Results - Last 24 Hours (Table) 05/05/24 05/05/24 05/05/24 Range/Units 04:39 04:39 06:06 RBC 3.24 L (4.10-5.20) X 10*6/uL Hgb 10.6 L (12.0-15.0) g/dL Hct 30.9 L (37.2-46.3) % MCH 32.7 H (27.0-32.0) pg RDW 15.4 H (11.5-14.5) % MPV 12.6 H (9.5-12.2) FL Anion Gap 12.10 H (4.00-12.00) mmol/L BUN 64.3 H (9.0-27.0) mg/dL Creatinine 1.8 H (0.6-1.5) mg/dL Est GFR (CKD-EPI) 27 L (>=60) BUN/Creatinine Ratio 35.72 H (12.00-20.00) Ratio POC Glucose (mg/dL) 121 H (70-110) mg/dL Total Protein 5.8 L (6.2-8.2) g/dL Albumin 3.6 L (3.8-4.9) g/dL Microbiology - Last 24 Hours (Table) 05/03/24 23:59 Urine Culture - Final Urine,Voided Assessment and Plan Plan: Assessment: 1. Acute kidney injury secondary to ATN secondary to hypotension, hypovolemia, further worsened with the use of diuretics and ANDRÉS inhibitor, and bradycardia. Creatinine little improved at 1.8. Baseline creatinine near 1. No hydronephrosis noted on kidney ultrasound. UA benign. 2. Chronic systolic CHF with ejection fraction of 40% with moderate to severe mitral regurgitation. 3. Coronary artery disease status post CABG and subsequent stenting. 4. Orthostatic hypotension. 5. Metabolic acidosis secondary to acute kidney injury and IV fluids. Improved with bicarb drip. Plan: Change bicarb drip to normal saline. Add oral bicarb. Continue to hold antihypertensives for now. Avoid nephrotoxins. Continue to monitor renal function and urine output. Check chest x-ray. Check a.m. cortisol level. Stop amlodipine. Add midodrine 5 mg 3 times daily. Hold for standing blood pressure greater than 115. Check a.m. cortisol level.
[2024-05-05 12:11] LABS: Glucose,Whole Blood 129 mg/dL (70-110)
--- NOTE | 2024-05-05 12:13 | CT ---
EXAMINATION TYPE: CT brain wo con CT DLP: 1165 mGycm, Automated exposure control for dose reduction was used. DATE OF EXAM: 05/05/2024 12:04 PM COMPARISON: Prior CT Brain from 04/21/2024 . CLINICAL INDICATION:Female, 83 years old with history of dizziness, dizziness TECHNIQUE: Brain: Multiple axial CT images of the brain were obtained without IV contrast. . Coronal and sagitta l reformats reviewed. FINDINGS: Brain: Extra-axial spaces: No abnormal extra-axial fluid collections. Ventricular system: Within normal limits Cerebral parenchyma: Age-appropriate cerebral volume. No acute intraparenchymal hemorrhage or mass ef fect. The boothe-white junction is well differentiated. Scattered hypoattenuating areas are seen withi n the periventricular and subcortical white matter. Partially empty sella. Cerebellum: Unremarkable. Mass effect: No evidence of midline shift. Intracranial vasculature: Atherosclerotic calcifications of the intracranial vessels. Soft tissues: Normal. Calvarium/osseous structures: No depressed skull fracture. Benign hyperostosis frontalis noted. Paranasal sinuses and mastoid air cells: Clear Visualized orbits: Bilateral aphakia IMPRESSION: 1. No acute intracranial process or significant change from prior. 2. Nonspecific white matter changes, likely secondary to chronic small vessel ischemic disease. [facility], , 05/05/2024 12:11 PM
--- NOTE | 2024-05-05 12:40 | P.PN ---
Subjective HISTORY OF PRESENT ILLNESS: This is a 83-year-old female with a past medical history significant for atrial fibrillation, coronary artery disease with previous CABG, valvular heart disease including mitral regurgitation, congestive heart failure, hypertension, and hyperlipidemia. Patient follows in the office with Dr. Weiner. We have been asked to see the patient in consultation for bradycardia. Patient examined at the bedside in the emergency room. Patient was brought to the hospital for generalized weakness. Patient has had recurrent visits to the ER for generalized weakness and lightheadedness. Patient used to be very independent and lives with her . However apparently recently the patient's daughter has been having to stay at her house to help take care of her. The patient currently denies having any chest pain or pressure. She denies any shortness of breath. Vital signs are stable. Telemetry reveals sinus mechanism with PVCs. No significant bradycardia noted. Patient was found to have DAVID with creatinine of 1.99. DIAGNOSTICS: - EKG reveals sinus mechanism with PVCs. No signs of acute ischemia. - Laboratory data: WBC 11.4. Hemoglobin 12.1. Platelet count 235. Sodium 137. Potassium 5.0. BUN 70. Creatinine 1.99. Lactic acid 1.5. Troponin negative x 1. - Current home cardiac medications include Eliquis 2.5 mg twice a day, amlodipine 5 mg at night, Lasix 40 mg daily, Imdur 30 mg daily, lisinopril 10 mg daily, Plavix 75 mg daily, metoprolol succinate 50 mg daily, rosuvastatin 10 mg at night, Aldactone 12.5 mg daily - Most recent echocardiogram obtained in July 2023 revealed ejection fraction 40%, trace to mild aortic regurgitation, mild aortic stenosis, severe mitral regurgitation, mild to moderate tricuspid regurgitation -SHANEL performed in July 2023 revealed tricuspid aortic valve with normal function. Super aortic calcification along the right coronary cusp however no actual valvular thickening of the cusp. Mitral valve appears to be structurally normal with malcoaptation related to left ventricular dilation, secondary mitral regurgitation. Moderate to severe mitral regurgitation. Tricuspid valve appears to be normal with mild tricuspid regurgitation. Intra-atrial septum is intact. No evidence of PFO. Left atrial appendage is free of clot. - Cardiac catheterization history: July 2023 revealing right dominant system. Normal filling pressures. Total occlusion of mid circumflex and mid LAD. Major diagonal branch 95% stenosis. Free radial artery graft to ramus as well as WOMACK to LAD are widely patent with good flow. Patient underwent PCI of the major diagonal branch. 05/05/2024 Patient examined this morning at the bedside. Patient currently denies chest pain or pressure. She denies shortness of breath. Patient continues to have generalized weakness. Creatinine today 1.8. She has been followed by nephrology and remains on IV fluids. Orthostatic blood pressures obtained this morning are positive. PHYSICAL EXAM: VITAL SIGNS: Reviewed. GENERAL: Well-developed in no acute distress. HEENT: Head is normocephalic. Pupils are equal, round. Sclerae anicteric. Mucous membranes of the mouth are moist. Neck supple. No JVD or thyromegaly LUNGS: Respirations even and unlabored. Lungs essentially clear to auscultation bilaterally. HEART: Regular rate and rhythm. S1 and S2 heard. Systolic murmur noted. ABDOMEN: Soft. Nondistended. Nontender. EXTREMITIES: Normal range of motion. No clubbing or cyanosis. Peripheral pulses intact. No lower extremity edema NEUROLOGIC: Awake and alert. Oriented x 3. ASSESSMENT: Generalized weakness Acute kidney injury Bradycardia, ruled out, telemetry reveals sinus mechanism with PVCs Coronary artery disease with previous CABG and subsequent stenting Paroxysmal atrial fibrillation Valvular heart disease including moderate to severe mitral regurgitation Chronic heart failure with reduced EF, 40%, currently euvolemic Hypertension Hyperlipidemia Orthostatic hypotension PLAN: Continue IV fluids. Continue to monitor kidney function. Nephrology following. Repeat kidney function in a.m. Continue to hold hold Lasix, lisinopril, and Aldactone secondary to DAVID Continue decreased dose of metoprolol tartrate 12.5 mg twice a day Continue telemetry monitoring Continue to monitor orthostatic blood pressures Further recommendations pending patient course Nurse practitioner note has been reviewed by physician. Signing provider agrees with the documented findings, assessment, and plan of care documented by [employer] IM[employer]OVEMENT CONSULTANT as a scribe. Objective - Vital Signs Vital signs: Vital Signs Temp 98 F 05/05/24 06:50 Pulse 60 05/05/24 09:10 Resp 17 05/05/24 09:10 BP 120/68 05/05/24 09:10 Pulse Ox 95 05/05/24 06:50 FiO2 Intake & Output 05/04/24 05/05/24 05/05/24 18:59 06:59 18:59 Intake Total 111 118 Balance 111 118 Weight 77.111 kg Intake: Oral 111 118 Other: Voiding Method Toilet Toilet # Voids 2 - Labs CBC & Chem 7: 05/05/24 04:39 05/05/24 04:39 Labs: Abnormal Lab Results - Last 24 Hours (Table) 05/05/24 05/05/24 05/05/24 Range/Units 04:39 04:39 06:06 RBC 3.24 L (4.10-5.20) X 10*6/uL Hgb 10.6 L (12.0-15.0) g/dL Hct 30.9 L (37.2-46.3) % MCH 32.7 H (27.0-32.0) pg RDW 15.4 H (11.5-14.5) % MPV 12.6 H (9.5-12.2) FL Anion Gap 12.10 H (4.00-12.00) mmol/L BUN 64.3 H (9.0-27.0) mg/dL Creatinine 1.8 H (0.6-1.5) mg/dL Est GFR (CKD-EPI) 27 L (>=60) BUN/Creatinine Ratio 35.72 H (12.00-20.00) Ratio POC Glucose (mg/dL) 121 H (70-110) mg/dL Total Protein 5.8 L (6.2-8.2) g/dL Albumin 3.6 L (3.8-4.9) g/dL 05/05/24 Range/Units 12:10 RBC (4.10-5.20) X 10*6/uL Hgb (12.0-15.0) g/dL Hct (37.2-46.3) % MCH (27.0-32.0) pg RDW (11.5-14.5) % MPV (9.5-12.2) FL Anion Gap (4.00-12.00) mmol/L BUN (9.0-27.0) mg/dL Creatinine (0.6-1.5) mg/dL Est GFR (CKD-EPI) (>=60) BUN/Creatinine Ratio (12.00-20.00) Ratio POC Glucose (mg/dL) 129 H (70-110) mg/dL Total Protein (6.2-8.2) g/dL Albumin (3.8-4.9) g/dL Microbiology - Last 24 Hours (Table) 05/03/24 23:59 Urine Culture - Final Urine,Voided
[2024-05-05] MEDS: SODIUM CHLORIDE 0.9% 1,000 ML IV SCH (12:47)
[2024-05-05] MEDS: MIDODRINE 5 MG TAB PO SCH (12:47)
[2024-05-05] MEDS: SODIUM BICARBONATE TAB 650 MG TAB PO SCH (12:47)
[2024-05-05 14:30] VITALS: BMI 27.4
--- NOTE | 2024-05-05 15:12 | P.CNNES ---
History of Present Illness Consult date: 05/05/24 Requesting physician: Lee Smart Reason for Consult: severe dizziness History of Present Illness: This is an 83-year-old woman with history of A-fib on Eliquis, UTI, arthritis who presented emergency department because of dizziness generalized weakness with decreased appetite for the last 4 to 5 weeks. Patient's grandson at bedside who provides some of the history. He stated that whenever she gets up she feels dizzy. No ringing of the ear or hearing loss no focal weakness. She usually walks with a walker. Denies any history of stroke. Patient had orthostatic vitals which is positive. Some of the workup during this hospital visit consisted of of: Her creatinine is 1.99 and today is 1.8 I reviewed the rest of the lab work-up. Orthostatic vitals most recent today in the morning supine is 120/68 with a hea rt rate of 60, sitting is 90/56 with a heart rate of 68 and standing is 88/60 with a heart rate of 76. Review of Systems As per HPI. Past Medical History Past Medical History: Coronary Artery Disease (CAD), Hyperlipidemia, Hyperten amy, Osteoarthritis (OA) Additional Past Medical History / Comment(s): covid infection Apr 2023,redness and swelling 3rd digit left hand, hx UTI's, see Dr [facility]ars [facility], [facility]'s Disease History of Any Multi-Drug Resistant Organisms: None Reported Past Surgical History: Breast Surgery, Cardiac Ablation, Coronary Bypass/CABG, Heart Catheterization, Hysterectomy, Joint Replacement, Orthopedic Surgery Additional Past Surgical History / Comment(s): cataracts removed, left knee replaced,rt knee replaced x2, arthroscopy knee, bilateral shoulder surg., heel spur removed, breast reduction, double bypass, blepharoplasty,3rd digit lt hand repair Past Anesthesia/Blood Transfusion Reactions: Motion Sickness, Postoperative Nausea & Vomiting (PONV) Additional Past Anesthesia/Blood Transfusion Reaction / Comment(s): no problems with prior blood transfusion. Past Psychological History: No Psychological Hx Reported Smoking Status: Never smoker Past Alcohol Use History: None Reported Past Drug Use History: None Reported - Past Family History Sister(s) Family Medical History: Cancer Additional Family Medical History / Comment(s): breast CA Mother Family Medical History: Coronary Artery Disease (CAD), Diabetes Mellitus Father Family Medical History: Coronary Artery Disease (CAD) Brother(s) Family Medical History: Myocardial Infarction ([place]) Additional Family Medical History / Comment(s): with [place] Medications and Allergies Home Medications Medication Instructions Recorded Confirmed Type Meclizine [Antivert] 12.5 mg PO TID PRN 04/14/16 05/04/24 History Isosorbide Mononitrate ER [Imdur] 30 mg PO DAILY #30 tab.er.24h 02/23/21 05/04/24 Rx Baclofen 5 mg PO TID PRN 08/10/23 05/04/24 History Furosemide [Lasix] 40 mg PO DAILY 08/10/23 05/04/24 History allopurinoL 100 mg PO DAILY 08/10/23 05/04/24 History Albuterol Inhaler [Ventolin Hfa 2 puff INHALATION RT-Q6H PRN 05/04/24 05/04/24 History Inhaler] Apixaban [Eliquis] 2.5 mg PO BID 05/04/24 05/04/24 History Clopidogrel [Plavix] 75 mg PO DAILY 05/04/24 05/04/24 History Colchicine [Colcrys] 0.6 mg PO DAILY 05/04/24 05/04/24 History Cranberry (Unknown Dose) 1 tab PO DAILY 05/04/24 05/04/24 History D-Mannose (Unknown Dose) 1 tab PO DAILY 05/04/24 05/04/24 History DULoxetine HCL [Cymbalta] 20 mg PO HS 05/04/24 05/04/24 History Metoprolol Succinate [Toprol XL] 50 mg PO DAILY 05/04/24 05/04/24 History Pantoprazole Sodium [Protonix] 20 mg PO HS 05/04/24 05/04/24 History Rosuvastatin [Crestor] 10 mg PO HS 05/04/24 05/04/24 History Spironolactone [Aldactone] 12.5 mg PO DAILY 05/04/24 05/04/24 History Ubidecarenone [Coenzyme Q10] 200 mg PO HS 05/04/24 05/04/24 History amLODIPine [Norvasc] 5 mg PO HS 05/04/24 05/04/24 History lisinopriL [Zestril] 10 mg PO DAILY 05/04/24 05/04/24 History Allergies Allergy/AdvReac Type Severity Reaction Status Date / Time Penicillins Allergy Rash/Hives Verified 08/10/23 08:22 Sulfa (Sulfonamide Allergy Rash/Hives Verified 08/10/23 08:22 Antibiotics) metal Allergy pain(had Uncoded 08/10/23 08:22 reaction to knee implant) Physical Examination - Vital Signs Vital Signs: Vital Signs Temp Pulse Pulse Pulse Pulse Resp BP 05/05/24 14:10 97.9 F 60 15 124/61 05/05/24 14:01 98 F 56 L 16 126/65 05/05/24 09:10 68 76 60 17 05/05/24 06:50 98 F 61 17 122/74 05/05/24 01:49 97.9 F 62 17 101/62 05/04/24 19:42 97.7 F 59 L 16 100/63 05/04/24 17:28 58 L 18 05/04/24 15:44 65 96/61 05/04/24 15:42 63 104/62 05/04/24 15:38 97.7 F 57 L 18 121/63 BP BP BP Pulse Ox 05/05/24 14:10 96 05/05/24 14:01 05/05/24 09:10 90/56 88/60 120/68 05/05/24 06:50 95 05/05/24 01:49 95 05/04/24 19:42 95 05/04/24 17:28 05/04/24 15:44 05/04/24 15:42 05/04/24 15:38 Intake and Output 05/05/24 05/05/24 05/05/24 06:59 14:59 22:59 Intake Total 768 Balance 768 Intake: Intake, IV Titration 650 Amount Sodium Chloride 0.9% 1, 600 000 ml @ 75 mls/hr IV . [id number] [facility] Rx#:[id number] cefTRIAXone 1 gm In 50 Sodium Chloride 0.9% 50 ml @ 100 mls/hr IVPB Q24HR [facility] Rx#:[id number] Oral 118 Other: Voiding Method Toilet # Voids 2 4 Weight 77.111 kg GENERAL: The patient is lying in bed and is not in acute distress. NEUROLOGICAL: Higher mental function: The patient is awake, alert, oriented to self, place and time. Patient is following commands. No aphasia and no neglect. Cranial nerves: The pupils are round, equal and reactive to light and accommodation. Visual orozco are full to confrontation throughout. Extraocular movement is intact no nystagmus is noted. Facial sensation is normal to touch throughout. The facial strength is normal throughout. Hearing is mildly decreased bilaterally to hand rub. Tongue is midline and moved [id number] without any difficulty. No dysarthria is noted. Shoulder shrug is normal bilaterally. Motor: Gait is need assistance getting up. Then was able to take a few steps then felt very dizzy. The strength is 5 over 5 throughout. Normal tone and bulk. Has arthritic changes of the hands. Cerebellum: Normal finger to nose bilaterally. Sensation: Sensation is normal to touch throughout. Reflexes (right/left): 2+ in uppers. Lowers is deferred since had bilaterally knee replacement. Plantars are mute bilaterally. Results - Laboratory Findings CBC and BMP: 05/05/24 04:39 05/05/24 04:39 Abnormal Lab Findings: Abnormal Labs 05/03/24 05/03/24 05/03/24 18:52 18:52 23:59 WBC 11.4 H RBC 3.75 L Hgb Hct MCH RDW MPV Neutrophils # 9.1 H Carbon Dioxide 17 L Anion Gap BUN 70 H Creatinine 1.99 H Est GFR (CKD-EPI) BUN/Creatinine Ratio Glucose 128 H POC Glucose (mg/dL) Total Protein Albumin Urine Appearance Cloudy H Ur Leukocyte Esterase Large H Urine RBC 7 H Urine WBC 48 H Ur Squamous Epith Cells 10 H Urine Bacteria Rare H Hyaline Casts 25 H Urine Mucus Rare H 05/04/24 05/04/24 05/05/24 08:31 08:31 04:39 WBC 12.1 H RBC 3.47 L Hgb Hct MCH RDW MPV Neutrophils # Carbon Dioxide 16 L Anion Gap 12.10 H BUN 72 H 64.3 H Creatinine 2.02 H 1.8 H Est GFR (CKD-EPI) 27 L BUN/Creatinine Ratio 35.72 H Glucose 131 H POC Glucose (mg/dL) Total Protein 5.8 L Albumin 3.6 L Urine Appearance Ur Leukocyte Esterase Urine RBC Urine WBC Ur Squamous Epith Cells Urine Bacteria Hyaline Casts Urine Mucus 05/05/24 05/05/24 05/05/24 04:39 06:06 12:10 WBC RBC 3.24 L Hgb 10.6 L Hct 30.9 L MCH 32.7 H RDW 15.4 H MPV 12.6 H Neutrophils # Carbon Dioxide Anion Gap BUN Creatinine Est GFR (CKD-EPI) BUN/Creatinine Ratio Glucose POC Glucose (mg/dL) 121 H 129 H Total Protein Albumin Urine Appearance Ur Leukocyte Esterase Urine RBC Urine WBC Ur Squamous Epith Cells Urine Bacteria Hyaline Casts Urine Mucus Assessment and Plan Assessment: This is an 83-year-old woman who presented emergency department because of dizziness mostly with standing up and walking, generalized weakness and decreased appetite for the last 4 to 5 weeks. She has positive orthostatic vitals. Dizziness due to positive orthostatic hypotension Acute kidney insufficiency History of atrial fibrillation on Eliquis History of coronary artery disease status post CABG and subsequent stenting Chronic systolic heart failure with ejection fraction 40 with moderate to severe mitral regurgitation History of urinary tract infection Arthritis Plan: I ordered CT of the head. Recommend compression stocking. Nephrology has started on midodrine 5 mg 1 tablet 3 times daily for her orthostatic hypotension Cardiology is consulted Will defer the rest of the medical management to primary and other specialist. The plan is discussed with patient, grandson who is at bedside and her nurse. Dr. Carson will resume neurology service tomorrow A.M. Time with Patient: Greater than 30
--- NOTE | 2024-05-05 15:39 | CDI ---
Documentation Clarification Form Date: 05/05/2024 03:09:43 PM From: Vanita Kimbrough RN, CCDS Phone: [phone] Admit Date: 05/04/2024 01:51:00 PM Patient Name: Kirsty Castle Visit Number: [id number] Discharge Date: ATTENTION: The Clinical Documentation Specialists (CDI) and [facility] Coding Staff appreciate your assistance in clarifying documentation. Please respond to the clarification below the line at the bottom and electronically sign. The CDI & [facility] Coding staff will review the response and follow-up if needed. Please note: Queries are made part of the Legal Health Record. If you have any questions, please contact the author of this message via ITS. Doctor/Provider: Lee Smart Possible early sepsis with possible acute urinary tract infection is documented in the H/P which may lack sufficient clinical evidence/support in the medical record. Additional clarification is requested. History/Risk Factors: Coronary Artery Disease (CAD), Hyperlipidemia, Hypertension Clinical Indicators: 83-year-old female present with generalized weakness x 1 month. Patient denies any urinary symptoms. 05/03 VS 131/59 58 18 97.4 99% RA Labs WBC 11.4 Neutrophils 9.1, CO2 17, BUN 70, CR 1.99 GFR 22 05/03 UA: Leukocyte Esterase -Large WBC 48; Urine culture Final: No Growth after 18 Hrs 05/04 UA: Leukocyte Esterase Negative Treatment: Rocephin 1GM IVPB Q 24 HRS Please clarify if early sepsis with possible acute urinary tract infection is a valid diagnosis? [xx ] No, early sepsis with possible acute urinary tract infection is ruled out [ ] Sepsis ruled out, UTI ruled in [ ] Other (please specify diagnosis) [ ] Unable to determine (Template Last Revised: December 2023) MTDD
[2024-05-05 17:10] LABS: Glucose,Whole Blood 131 mg/dL (70-110)
[2024-05-05 21:27] LABS: Glucose,Whole Blood 104 mg/dL (70-110)
--- NOTE | 2024-05-05 22:17 | P.PN ---
Subjective Progress Note Date: 05/05/24 83-year-old patient with longstanding history of atrial fibrillation, coronary artery disease, cardiomyopathy with ejection fraction 35-40 percentile, hypertension, hyperlipidemia, Mnire disease, chronic kidney disease, bilateral kidney cyst, chronic history of vertigo, history of anemia post blood lira sfusion, mild protein calorie malnutrition, chronic arthritis with severe problem with mobility who was hospitalized twice in the last 4 weeks at [facility] first time for 24 hours admitted on 04/02/2024 until 04/04/2024 for acute cystitis, A-fib with RVR, anemia, acute kidney injury and debility was treated and taking care of and sent home on 03/31/2024 ,She is return to the emergency department again 04/06 till 04/07/2024 for worsening shortness of breath and dyspnea with what seems to be elevated proBNP consistent with congestive heart failure along with A-fib with RVR and acute kidney injury was treated seen by [facility] hospitalist along with cardiology treated aggressive enough and was discharged home this time on 04/07/2024 on adjusted medical management. Noticed by the family that patient has not been doing well Complaining of generalized weakness lightheadedness and worsening dyspnea and shortness of breath very restless not been able to ambulate and walk and has been having problem with presyncope like symptoms along with worsening burning frequency urgency hesitancy and hematuria. She had total of 4 visit to the emergency department [place] last few weeks with workup coming to some degree not showing any major abnormality. This time found to have significant acute kidney injury with bun of 70 creatinine of 1.99 with UA showing very large amount of leukocyte Estrace along with white blood cell and red blood cell was diagnosed with possible acute urinary tract infection with early sepsis lactic acid is 1.5 Objective - Vital Signs Vital signs: Vital Signs Temp 98 F 05/05/24 14:01 Pulse 56 L 05/05/24 14:01 Resp 16 05/05/24 14:01 BP 126/65 05/05/24 14:01 Pulse Ox 95 05/05/24 06:50 FiO2 Intake & Output 05/04/24 05/05/24 05/05/24 18:59 06:59 18:59 Intake Total 111 118 Balance 111 118 Weight 77.111 kg Intake: Oral 111 118 Other: Voiding Method Toilet Toilet # Voids 2 - Exam General Appearance: Alert, cooperative, no distress, appears stated age. Neck HEENT: Supple, no lymphadenopathy, no thyroid enlargement, no carotid bruits. Lungs: Decreased breath sound bilaterally fine rhonchi no crackles or wheezes. Chest Wall: Decreased expansion with deep inspiration no tenderness and no deformity was found on exam, no costochondral pain or discomfort. Heart: Irregular rate and rhythm, S1, S2 positive S3 positive systolic murmur with mild tachycardia Back: Symmetric, no curvature, ROM normal, no CVA tenderness. Abdomen: Soft, non-tender, bowel sounds active all four quadrants, slight discomfort lower abdominal region area no rebound or rigidity. Extremities: Extremities normal, atraumatic, no cyanosis or edema. - Labs CBC & Chem 7: 05/05/24 04:39 05/05/24 04:39 Labs: Abnormal Lab Results - Last 24 Hours (Table) 05/05/24 05/05/24 05/05/24 Range/Units 04:39 04:39 06:06 RBC 3.24 L (4.10-5.20) X 10*6/uL Hgb 10.6 L (12.0-15.0) g/dL Hct 30.9 L (37.2-46.3) % MCH 32.7 H (27.0-32.0) pg RDW 15.4 H (11.5-14.5) % MPV 12.6 H (9.5-12.2) FL Anion Gap 12.10 H (4.00-12.00) mmol/L BUN 64.3 H (9.0-27.0) mg/dL Creatinine 1.8 H (0.6-1.5) mg/dL Est GFR (CKD-EPI) 27 L (>=60) BUN/Creatinine Ratio 35.72 H (12.00-20.00) Ratio POC Glucose (mg/dL) 121 H (70-110) mg/dL Total Protein 5.8 L (6.2-8.2) g/dL Albumin 3.6 L (3.8-4.9) g/dL 05/05/24 Range/Units 12:10 RBC (4.10-5.20) X 10*6/uL Hgb (12.0-15.0) g/dL Hct (37.2-46.3) % MCH (27.0-32.0) pg RDW (11.5-14.5) % MPV (9.5-12.2) FL Anion Gap (4.00-12.00) mmol/L BUN (9.0-27.0) mg/dL Creatinine (0.6-1.5) mg/dL Est GFR (CKD-EPI) (>=60) BUN/Creatinine Ratio (12.00-20.00) Ratio POC Glucose (mg/dL) 129 H (70-110) mg/dL Total Protein (6.2-8.2) g/dL Albumin (3.8-4.9) g/dL Microbiology - Last 24 Hours (Table) 05/03/24 23:59 Urine Culture - Final Urine,Voided Assessment and Plan Assessment: _Acute kidney injury with chronic kidney disease: Continue hydration, consult nephrology apparently had seen nephrology in the other hospital as well and she continued to have slight decline in kidney function repeatedly. _Severe dizziness with history of Mnire disease with abnormal balance and gait will consult neurology at this point continue current management watch symptoms carefully patient need probably to move with help of PT OT and might require short-term rehab. _Severe cardiomyopathy with ejection fraction of 30-40 percentile Has been seeing cardiology regularly will resume home medication she was on spironolactone and lisinopril along with furosemide and all will create more damage to the kidney which will be held for now till her kidney function better. _A-fib with RVR: Pulse rate is doing better so far continue metoprolol tartrate 12.5 mg twice a day continue Eliquis 2.5 mg twice a day. _UTI with early sign of sepsis: Patient be on Rocephin 1 g daily waiting for the final culture. _Hyperlipidemia: Has been on rosuvastatin 10 mg a day switch in house to atorvastatin 40 mg daily. _Recurrent angina and atherosclerotic heart disease: Remain on amlod ipine,_metoprolol, isosorbide mononitrate along with lisinopril resume home medication resume ANDRÉS when safe. _Debility with worsening mobility combined between cardiomyopathy, generalized weakness, Mnire disease, severe arthritis, severe degenerative disc disease with all of the above making patient not safe to ambulate and walk and have been having presyncope like and multiple episode of fall with no injury so far to be watched quite carefully will require PT OT titrate management gradually. _Hypertension: Up till now was on amlodipine, lisinopril, metoprolol along with spironolactone. _Previous history of TIA/CVA_: Has been on Plavix along with secondary prevention with cholesterol-lowering agent along with hypertensive management. _History of gout: With no flareup remain on allopurinol 100 mg daily. Still on colchicine on as-needed basis had apparently recent episode. _Hyperglycemia with no episode of diabetes so far no full diagnosis continue Accu-Chek with sliding scales coverage. _GI prophylaxis: Remain on pantoprazole. _DVT prophylaxis: Remain on anticoagulation with Eliquis. CODE STATUS: Full code.
[2024-05-06 06:32] LABS: Glucose,Whole Blood 101 mg/dL (70-110)
[2024-05-06 09:18] LABS: Basophils # (A) 0.07 X 10*3/uL (0.00-0.10); Basophils % (A) 0.7 %; Eosinophils # (A) 0.12 X 10*3/uL (0.04-0.35); Eosinophils % (A) 1.2 %; HCT 30.2 % (37.2-46.3); HGB 10.2 g/dL (12.0-15.0); Lymphocytes # (A) 1.24 X 10*3/uL (0.90-5.00); Lymphocytes % (A) 12.3 %; MCH 32.2 pg (27.0-32.0); MCHC 33.8 g/dL (32.0-37.0); MCV 95.3 FL (80.0-97.0); Mean Platelet Volume 12.4 FL (9.5-12.2); Monocytes # (A) 1.33 X 10*3/uL (0.20-1.00); Monocytes % (A) 13.2 %; NRBC Per 100 WBC 0 X 10*3/uL (0.00-0.01); Neutrophils # (A) 7.22 X 10*3/uL (1.80-7.70); Neutrophils % (A) 71.4 %; Platelet Count 167 X 10*3/uL (140-440); RBC 3.17 X 10*6/uL (4.10-5.20); RDW 15.5 % (11.5-14.5)
--- NOTE | 2024-05-06 09:39 | P.PN ---
Subjective Progress Note Date: 05/06/24 This is Theodore Lopez NP, I'm dictating on behalf of Dr. Spears's H&P and A&P. Patient was interviewed and examined. Patient is a pleasant 83-year-old female who presented to the hospital with generalized weakness, and was subsequently found to have DAVID. Patient reports that she is feeling okay today. BUN and creatinine appear to be improving with IV fluids. Patient is denying chest pain, shortness of breath, heart palpitations today. GENERAL: Well-appearing, well-nourished and in no acute distress. NECK: Supple without JVD or thyromegaly. LUNGS: Breath sounds clear to auscultation bilaterally. Respiration equal and unlabored. No wheezes, rales or rhonchi. HEART: Regular rate and rhythm without murmurs, rubs or gallops. S1 and S2 heard. EXTREMITIES: Normal range of motion, no edema. No clubbing or cyanosis. Peripheral pulses intact and strong. VITALS: Temp 97.9, pulse 85, blood pressure 101/64, respirations 16, O2 saturation 97% on room air TELEMETRY: Sinus mechanism LABS: No new labs since 05/05/2024 IMPRESSION: 1. Generalized weakness 2. Acute kidney injury 3. Bradycardia, ruled out 4. CAD with previous CABG and stenting 5. Paroxysmal atrial fibrillation 6. Valvular heart disease including moderate to severe mitral regurgitation 7. Chronic heart failure with reduced EF 8. Hypertension 9. Hyperlipidemia PLAN: Continue IV fluids. Sinus bradycardia has been ruled out. No further recommendations from a cardiology standpoint. Thank you for allowing us to participate in the care of this patient. Objective - Vital Signs Vital signs: Vital Signs Temp 97.9 F 05/06/24 03:45 Pulse 85 05/06/24 06:51 Resp 16 05/06/24 03:45 BP 101/64 05/06/24 06:51 Pulse Ox 97 05/06/24 03:45 FiO2 Intake & Output 05/05/24 05/06/24 05/06/24 18:59 06:59 18:59 Intake Total 768 Balance 768 Weight 77.111 kg Intake: Intake, IV Titration 650 Amount Sodium Chloride 0.9% 1, 600 000 ml @ 75 mls/hr IV . [id number] [facility] Rx#:[id number] cefTRIAXone 1 gm In 50 Sodium Chloride 0.9% 50 ml @ 100 mls/hr IVPB Q24HR [facility] Rx#:[id number] Oral 118 Other: # Voids 4 1 - Labs CBC & Chem 7: 05/06/24 05:38 05/05/24 04:39 Labs: Abnormal Lab Results - Last 24 Hours (Table) 05/05/24 05/05/24 05/05/24 Range/Units 04:39 04:39 12:10 RBC 3.24 L (4.10-5.20) X 10*6/uL Hgb 10.6 L (12.0-15.0) g/dL Hct 30.9 L (37.2-46.3) % MCH 32.7 H (27.0-32.0) pg RDW 15.4 H (11.5-14.5) % MPV 12.6 H (9.5-12.2) FL Anion Gap 12.10 H (4.00-12.00) mmol/L BUN 64.3 H (9.0-27.0) mg/dL Creatinine 1.8 H (0.6-1.5) mg/dL Est GFR (CKD-EPI) 27 L (>=60) BUN/Creatinine Ratio 35.72 H (12.00-20.00) Ratio POC Glucose (mg/dL) 129 H (70-110) mg/dL Total Protein 5.8 L (6.2-8.2) g/dL Albumin 3.6 L (3.8-4.9) g/dL 05/05/24 Range/Units 17:07 RBC (4.10-5.20) X 10*6/uL Hgb (12.0-15.0) g/dL Hct (37.2-46.3) % MCH (27.0-32.0) pg RDW (11.5-14.5) % MPV (9.5-12.2) FL Anion Gap (4.00-12.00) mmol/L BUN (9.0-27.0) mg/dL Creatinine (0.6-1.5) mg/dL Est GFR (CKD-EPI) (>=60) BUN/Creatinine Ratio (12.00-20.00) Ratio POC Glucose (mg/dL) 131 H (70-110) mg/dL Total Protein (6.2-8.2) g/dL Albumin (3.8-4.9) g/dL Microbiology - Last 24 Hours (Table) 05/03/24 23:59 Urine Culture - Final Urine,Voided
[2024-05-06 09:41] LABS: BUN/Creat Ratio 32.93 Ratio (12.00-20.00); Blood Urea Nitrogen 46.1 mg/dL (9.0-27.0); Calcium 9.2 mg/dL (8.7-10.3); Carbon Dioxide 22.5 mmol/L (21.6-31.8); Chloride 103 mmol/L (96-109); Glucose 101 mg/dL (70-110); Magnesium 1.6 mg/dL (1.5-2.4); Potassium 3.7 mmol/L (3.5-5.5); Sodium 139 mmol/L (135-145)
[2024-05-06 11:54] LABS: Glucose,Whole Blood 140 mg/dL (70-110)
--- NOTE | 2024-05-06 12:13 | P.PN ---
Subjective Patient is seen in follow-up for acute kidney injury. Renal function better. Orthostatic vital signs noted to be positive. Currently on normal saline. Acidosis improved. Denies chest pain or shortness of breath. Oral intake fair. Vital signs are stable. Orthostatic positive. General: No acute distress. HEENT: Head exam is unremarkable. LUNGS: No audible rhonchi or wheezes. HEART: Rate and Rhythm are regular. ABDOMEN: Nontender. EXTREMITITES: No edema. Objective - Vital Signs Vital signs: Vital Signs Temp 98.0 F 05/06/24 07:00 Pulse 65 05/06/24 07:00 Resp 16 05/06/24 07:00 BP 149/60 05/06/24 07:00 Pulse Ox 97 05/06/24 07:00 FiO2 Intake & Output 05/05/24 05/06/24 05/06/24 18:59 06:59 18:59 Intake Total 768 472 Balance 768 472 Weight 77.111 kg Intake: Intake, IV Titration 650 Amount Sodium Chloride 0.9% 1, 600 000 ml @ 75 mls/hr IV . [id number] [facility] Rx#:[id number] cefTRIAXone 1 gm In 50 Sodium Chloride 0.9% 50 ml @ 100 mls/hr IVPB Q24HR [facility] Rx#:[id number] Oral 118 472 Other: # Voids 4 1 - Labs CBC & Chem 7: 05/06/24 05:38 05/06/24 05:38 Labs: Abnormal Lab Results - Last 24 Hours (Table) 05/05/24 05/05/24 05/06/24 Range/Units 12:10 17:07 05:38 WBC (4.50-10.00) X 10*3/uL RBC (4.10-5.20) X 10*6/uL Hgb (12.0-15.0) g/dL Hct (37.2-46.3) % MCH (27.0-32.0) pg RDW (11.5-14.5) % MPV (9.5-12.2) FL Immature Gran # (0.00-0.04) X 10*3/uL Monocytes # (0.20-1.00) X 10*3/uL Anion Gap 13.50 H (4.00-12.00) mmol/L BUN 46.1 H (9.0-27.0) mg/dL Est GFR (CKD-EPI) 37 L (>=60) BUN/Creatinine Ratio 32.93 H (12.00-20.00) Ratio POC Glucose (mg/dL) 129 H 131 H (70-110) mg/dL 05/06/24 05/06/24 Range/Units 05:38 11:53 WBC 10.10 H (4.50-10.00) X 10*3/uL RBC 3.17 L (4.10-5.20) X 10*6/uL Hgb 10.2 L (12.0-15.0) g/dL Hct 30.2 L (37.2-46.3) % MCH 32.2 H (27.0-32.0) pg RDW 15.5 H (11.5-14.5) % MPV 12.4 H (9.5-12.2) FL Immature Gran # 0.12 H (0.00-0.04) X 10*3/uL Monocytes # 1.33 H (0.20-1.00) X 10*3/uL Anion Gap (4.00-12.00) mmol/L BUN (9.0-27.0) mg/dL Est GFR (CKD-EPI) (>=60) BUN/Creatinine Ratio (12.00-20.00) Ratio POC Glucose (mg/dL) 140 H (70-110) mg/dL Microbiology - Last 24 Hours (Table) 05/03/24 23:59 Urine Culture - Final Urine,Voided Assessment and Plan Plan: Assessment: 1. Acute kidney injury secondary to ATN secondary to hypotension, hypovolemia, further worsened with the use of diuretics and ANDRÉS inhibitor, and bradycardia. Renal function improved. Creatinine 1.4. Baseline creatinine near 1. No hydronephrosis noted on kidney ultrasound. UA benign. 2. Chronic systolic CHF with ejection fraction of 40% with moderate to severe mitral regurgitation. 3. Coronary artery disease status post CABG and subsequent stenting. 4. Orthostatic hypotension. Cortisol level not low. 5. Metabolic acidosis secondary to acute kidney injury and IV fluids. Improved with bicarb drip. Now on oral bicarb. Plan: Maintain IV fluids. Avoid nephrotoxins. Continue to monitor renal function and urine output. Check chest x-ray. Hold midodrine for standing blood pressure greater than 115. Continue to monitor orthostatics. Replace potassium and magnesium.
[2024-05-06] MEDS: POTASSIUM CHLORIDE ER 20 MEQ TAB.ER PO STA (13:00)
[2024-05-06] MEDS: MAGNESIUM SULFATE-D5W PMX 1 GM in DEXTROSE/WATER 1 100ML.BAG IVPB SCH (13:06)
--- NOTE | 2024-05-06 13:07 | XR ---
EXAMINATION TYPE: XR chest 1V DATE OF EXAM: 05/06/2024 12:41 PM CLINICAL INDICATION: Female, 83 years old with history of sob; [facility] COMPARISON: Chest radiographs from 08/22/2023 TECHNIQUE: XR chest 1V Frontal view of the chest. FINDINGS: Lungs/Pleura: There is no evidence of pleural effusion, focal consolidation, or pneumothorax. Pulmonary vascularity: Unremarkable. Heart/mediastinum: Cardiomediastinal silhouette is unremarkable. Musculoskeletal: No acute osseous pathology. Midline sternotomy wires are noted. IMPRESSION: No acute cardiopulmonary disease/process. [facility] Priscilla Felder, , 05/06/2024 1:05 PM
[2024-05-06 17:02] LABS: Glucose,Whole Blood 146 mg/dL (70-110)
[2024-05-06 20:06] LABS: Glucose,Whole Blood 105 mg/dL (70-110)
[2024-05-06] MEDS: BACLOFEN 10 MG TAB PO PRN (21:57)
[2024-05-07 05:51] LABS: Glucose,Whole Blood 128 mg/dL (70-110)
[2024-05-07 09:51] LABS: BUN/Creat Ratio 23.46 Ratio (12.00-20.00); Blood Urea Nitrogen 30.5 mg/dL (9.0-27.0); Calcium 9.5 mg/dL (8.7-10.3); Carbon Dioxide 23.9 mmol/L (21.6-31.8); Chloride 104 mmol/L (96-109); Glucose 140 mg/dL (70-110); Magnesium 2.1 mg/dL (1.5-2.4); Potassium 3.9 mmol/L (3.5-5.5); Sodium 140 mmol/L (135-145)
--- NOTE | 2024-05-07 10:41 | P.PN ---
Subjective Patient is seen in follow-up for acute kidney injury. Renal function improving. Sitting blood pressure stable. Refusing to check blood pressure standing. Currently on normal saline. Acidosis improved. Denies chest pain or shortness of breath. Oral intake fair. Vital signs are stable. General: No acute distress. HEENT: Head exam is unremarkable. LUNGS: No audible rhonchi or wheezes. HEART: Rate and Rhythm are regular. ABDOMEN: Nontender. EXTREMITITES: No edema. Objective - Vital Signs Vital signs: Vital Signs Temp 97.5 F L 05/07/24 08:14 Pulse 72 05/07/24 08:14 Resp 14 05/07/24 08:14 BP 141/74 05/07/24 08:14 Pulse Ox 95 05/07/24 08:14 FiO2 Intake & Output 05/06/24 05/07/24 05/07/24 18:59 06:59 18:59 Intake Total 472 Balance 472 Intake: Oral 472 Other: Voiding Method Bedside Commode # Voids 0 1 - Labs CBC & Chem 7: 05/06/24 05:38 05/07/24 05:36 Labs: Abnormal Lab Results - Last 24 Hours (Table) 05/06/24 05/06/24 05/07/24 Range/Units 11:53 17:00 05:36 Anion Gap 12.10 H (4.00-12.00) mmol/L BUN 30.5 H (9.0-27.0) mg/dL Est GFR (CKD-EPI) 40 L (>=60) BUN/Creatinine Ratio 23.46 H (12.00-20.00) Ratio Glucose 140 H (70-110) mg/dL POC Glucose (mg/dL) 140 H 146 H (70-110) mg/dL 05/07/24 Range/Units 05:50 Anion Gap (4.00-12.00) mmol/L BUN (9.0-27.0) mg/dL Est GFR (CKD-EPI) (>=60) BUN/Creatinine Ratio (12.00-20.00) Ratio Glucose (70-110) mg/dL POC Glucose (mg/dL) 128 H (70-110) mg/dL Assessment and Plan Plan: Assessment: 1. Acute kidney injury secondary to ATN secondary to hypotension, hypovolemia, further worsened with the use of diuretics and ANDRÉS inhibitor, and bradycardia. Renal function improved. Creatinine 1.3. Baseline creatinine near 1. No hydronephrosis noted on kidney ultrasound. UA benign. 2. Chronic systolic CHF with ejection fraction of 40% with moderate to severe mitral regurgitation. 3. Coronary artery disease status post CABG and subsequent stenting. 4. Orthostatic hypotension. Cortisol level not low. Blood pressures seem to have improved. 5. Metabolic acidosis secondary to acute kidney injury and IV fluids. Improved with bicarb drip. Now on oral bicarb. Plan: Maintain IV fluids. Avoid nephrotoxins. Continue to monitor renal function and urine output. Hold midodrine for standing blood pressure greater than 115. Continue to monitor orthostatics.
[2024-05-07 12:23] LABS: Glucose,Whole Blood 188 mg/dL (70-110)
--- NOTE | 2024-05-07 17:05 | P.PN ---
Subjective Progress Note Date: 05/06/24 83-year-old patient with longstanding history of atrial fibrillation, coronary artery disease, cardiomyopathy with ejection fraction 35-40 percentile, hypertension, hyperlipidemia, Mnire disease, chronic kidney disease, bilateral kidney cyst, chronic history of vertigo, history of anemia post blood lira sfusion, mild protein calorie malnutrition, chronic arthritis with severe problem with mobility who was hospitalized twice in the last 4 weeks at [facility] first time for 24 hours admitted on 04/02/2024 until 04/04/2024 for acute cystitis, A-fib with RVR, anemia, acute kidney injury and debility was treated and taking care of and sent home on 03/31/2024 ,She is return to the emergency department again 04/06 till 04/07/2024 for worsening shortness of breath and dyspnea with what seems to be elevated proBNP consistent with congestive heart failure along with A-fib with RVR and acute kidney injury was treated seen by [facility] hospitalist along with cardiology treated aggressive enough and was discharged home this time on 04/07/2024 on adjusted medical management. Noticed by the family that patient has not been doing well Complaining of generalized weakness lightheadedness and worsening dyspnea and shortness of breath very restless not been able to ambulate and walk and has been having problem with presyncope like symptoms along with worsening burning frequency urgency hesitancy and hematuria. She had total of 4 visit to the emergency department [facility] last few weeks with workup coming to some degree not showing any major abnormality. This time found to have significant acute kidney injury with bun of 70 creatinine of 1.99 with UA showing very large amount of leukocyte Estrace along with white blood cell and red blood cell was diagnosed with possible acute urinary tract infection with early sepsis lactic acid is 1.5 05/06/2024 Patient is seen and evaluated with daughter at bedside; continues to complain of generalized weakness; family is concerned about patient discharged to home given inability to care for self; PT/OT have been consulted Vital signs are reviewed;; Temp 97.9, pulse 85, blood pressure 101/64, respirations 16, O2 saturation 97% on room air Nephrology on board and patient remains on IV fluids; creatinine down to 1.4 on last blood work; Lasix and Aldactone are held Patient has been evaluated by neurology for dizziness; CT of the head is negative; patient does have orthostatic hypotension; midodrine is ordered PT evaluation pending for discharge planning Objective - Vital Signs Vital signs: Vital Signs Temp 98.0 F 05/06/24 07:00 Pulse 65 05/06/24 07:00 Resp 16 05/06/24 07:00 BP 149/60 05/06/24 07:00 Pulse Ox 97 05/06/24 07:00 FiO2 Intake & Output 05/05/24 05/06/24 05/06/24 18:59 06:59 18:59 Intake Total 768 472 Balance 768 472 Weight 77.111 kg Intake: Intake, IV Titration 650 Amount Sodium Chloride 0.9% 1, 600 000 ml @ 75 mls/hr IV . [id number] ALEX Rx#:[id number] cefTRIAXone 1 gm In 50 Sodium Chloride 0.9% 50 ml @ 100 mls/hr IVPB Q24HR ALEX Rx#:[id number] Oral 118 472 Other: # Voids 4 1 - Exam General Appearance: Alert, cooperative, no distress, appears stated age. Neck HEENT: Supple, no lymphadenopathy, no thyroid enlargement, no carotid bruits. Lungs: Decreased breath sound bilaterally fine rhonchi no crackles or wheezes. Chest Wall: Decreased expansion with deep inspiration no tenderness and no deformity was found on exam, no costochondral pain or discomfort. Heart: Irregular rate and rhythm, S1, S2 positive S3 positive systolic murmur with mild tachycardia Back: Symmetric, no curvature, ROM normal, no CVA tenderness. Abdomen: Soft, non-tender, bowel sounds active all four quadrants, slight discomfort lower abdominal region area no rebound or rigidity. Extremities: Extremities normal, atraumatic, no cyanosis or edema. - Labs CBC & Chem 7: 05/06/24 05:38 05/07/24 05:36 Labs: Abnormal Lab Results - Last 24 Hours (Table) 05/05/24 05/05/24 05/06/24 Range/Units 12:10 17:07 05:38 WBC (4.50-10.00) X 10*3/uL RBC (4.10-5.20) X 10*6/uL Hgb (12.0-15.0) g/dL Hct (37.2-46.3) % MCH (27.0-32.0) pg RDW (11.5-14.5) % MPV (9.5-12.2) FL Immature Gran # (0.00-0.04) X 10*3/uL Monocytes # (0.20-1.00) X 10*3/uL Anion Gap 13.50 H (4.00-12.00) mmol/L BUN 46.1 H (9.0-27.0) mg/dL Est GFR (CKD-EPI) 37 L (>=60) BUN/Creatinine Ratio 32.93 H (12.00-20.00) Ratio POC Glucose (mg/dL) 129 H 131 H (70-110) mg/dL 05/06/24 Range/Units 05:38 WBC 10.10 H (4.50-10.00) X 10*3/uL RBC 3.17 L (4.10-5.20) X 10*6/uL Hgb 10.2 L (12.0-15.0) g/dL Hct 30.2 L (37.2-46.3) % MCH 32.2 H (27.0-32.0) pg RDW 15.5 H (11.5-14.5) % MPV 12.4 H (9.5-12.2) FL Immature Gran # 0.12 H (0.00-0.04) X 10*3/uL Monocytes # 1.33 H (0.20-1.00) X 10*3/uL Anion Gap (4.00-12.00) mmol/L BUN (9.0-27.0) mg/dL Est GFR (CKD-EPI) (>=60) BUN/Creatinine Ratio (12.00-20.00) Ratio POC Glucose (mg/dL) (70-110) mg/dL Microbiology - Last 24 Hours (Table) 05/03/24 23:59 Urine Culture - Final Urine,Voided Assessment and Plan Assessment: _Acute kidney injury with chronic kidney disease: Continue hydration, consult nephrology apparently had seen nephrology in the other hospital as well and she continued to have slight decline in kidney function repeatedly. _Severe dizziness with history of Mnire disease with abnormal balance and gait will consult neurology at this point continue current management watch symptoms carefully patient need probably to move with help of PT OT and might require short-term rehab. _Severe cardiomyopathy with ejection fraction of 30-40 percentile Has been seeing cardiology regularly will resume home medication she was on spi ronolactone and lisinopril along with furosemide and all will create more damage to the kidney which will be held for now till her kidney function better. _A-fib with RVR: Pulse rate is doing better so far continue metoprolol tartrate 12.5 mg twice a day continue Eliquis 2.5 mg twice a day. _UTI with early sign of sepsis: Patient be on Rocephin 1 g daily waiting for the final culture. _Hyperlipidemia: Has been on rosuvastatin 10 mg a day switch in house to atorvastatin 40 mg daily. _Recurrent angina and atherosclerotic heart disease: Remain on amlodipine,_metoprolol, isosorbide mononitrate along with lisinopril resume home medication resume ANDRÉS when safe. _Debility with worsening mobility combined between cardiomyopathy, generalized weakness, Mnire disease, severe arthritis, severe degenerative disc disease with all of the above making patient not safe to ambulate and walk and have been having presyncope like and multiple episode of fall with no injury so far to be watched quite carefully will require PT OT titrate management gradually. _Hypertension: Up till now was on amlodipine, lisinopril, metoprolol along with spironolactone. _Previous history of TIA/CVA_: Has been on Plavix along with secondary prevention with cholesterol-lowering agent along with hypertensive management. _History of gout: With no flareup remain on allopurinol 100 mg daily. Still on colchicine on as-needed basis had apparently recent episode. _Hyperglycemia with no episode of diabetes so far no full diagnosis continue Accu-Chek with sliding scales coverage. _GI prophylaxis: Remain on pantoprazole. _DVT prophylaxis: Remain on anticoagulation with Eliquis. CODE STATUS: Full code.
--- NOTE | 2024-05-07 17:14 | P.PN ---
Subjective Progress Note Date: 05/07/24 83-year-old patient with longstanding history of atrial fibrillation, coronary artery disease, cardiomyopathy with ejection fraction 35-40 percentile, hypertension, hyperlipidemia, Mnire disease, chronic kidney disease, bilateral kidney cyst, chronic history of vertigo, history of anemia post blood lira sfusion, mild protein calorie malnutrition, chronic arthritis with severe problem with mobility who was hospitalized twice in the last 4 weeks at [facility] first time for 24 hours admitted on 04/02/2024 until 04/04/2024 for acute cystitis, A-fib with RVR, anemia, acute kidney injury and debility was treated and taking care of and sent home on 03/31/2024 ,She is return to the emergency department again 04/06 till 04/07/2024 for worsening shortness of breath and dyspnea with what seems to be elevated proBNP consistent with congestive heart failure along with A-fib with RVR and acute kidney injury was treated seen by [facility] hospitalist along with cardiology treated aggressive enough and was discharged home this time on 04/07/2024 on adjusted medical management. Noticed by the family that patient has not been doing well Complaining of generalized weakness lightheadedness and worsening dyspnea and shortness of breath very restless not been able to ambulate and walk and has been having problem with presyncope like symptoms along with worsening burning frequency urgency hesitancy and hematuria. She had total of 4 visit to the emergency department [place] last few weeks with workup coming to some degree not showing any major abnormality. This time found to have significant acute kidney injury with bun of 70 creatinine of 1.99 with UA showing very large amount of leukocyte Estrace along with white blood cell and red blood cell was diagnosed with possible acute urinary tract infection with early sepsis lactic acid is 1.5 05/06/2024 Patient is seen and evaluated with daughter at bedside; continues to complain of generalized weakness; family is concerned about patient discharged to home given inability to care for self; PT/OT have been consulted Vital signs are reviewed;; Temp 97.9, pulse 85, blood pressure 101/64, respirations 16, O2 saturation 97% on room air Nephrology on board and patient remains on IV fluids; creatinine down to 1.4 on last blood work; Lasix and Aldactone are held Patient has been evaluated by neurology for dizziness; CT of the head is negative; patient does have orthostatic hypotension; midodrine is ordered PT evaluation pending for discharge planning 05/07/2024 Patient is seen and evaluated resting in bed; discussed with nursing staff; no specific complaints reported Vital signs are reviewed and remained stable Lab review reveals a sodium of 140, potassium 3.9, BUN of 30.5 with creatinine of 1.3 improved from 2.02 upon admission --Plan is to continue with current management Patient has been evaluated by PT and is recommended skilled rehab; family members not present in the room this morning; discharge planning has not been discussed with the family Objective - Vital Signs Vital signs: Vital Signs Temp 97.5 F L 05/07/24 08:14 Pulse 63 05/07/24 11:49 Resp 14 05/07/24 08:14 BP 126/71 05/07/24 11:49 Pulse Ox 95 05/07/24 08:14 FiO2 Intake & Output 05/06/24 05/07/24 05/07/24 18:59 06:59 18:59 Intake Total 472 Balance 472 Intake: Oral 472 Other: Voiding Method Bedside Commode # Voids 0 1 - Exam General Appearance: Alert, cooperative, no distress, appears stated age. Neck HEENT: Supple, no lymphadenopathy, no thyroid enlargement, no carotid bruits. Lungs: Decreased breath sound bilaterally fine rhonchi no crackles or wheezes. Chest Wall: Decreased expansion with deep inspiration no tenderness and no deformity was found on exam, no costochondral pain or discomfort. Heart: Irregular rate and rhythm, S1, S2 positive S3 positive systolic murmur with mild tachycardia Back: Symmetric, no curvature, ROM normal, no CVA tenderness. Abdomen: Soft, non-tender, bowel sounds active all four quadrants, slight discomfort lower abdominal region area no rebound or rigidity. Extremities: Extremities normal, atraumatic, no cyanosis or edema. - Labs CBC & Chem 7: 05/06/24 05:38 05/07/24 05:36 Labs: Abnormal Lab Results - Last 24 Hours (Table) 05/06/24 05/06/24 05/07/24 Range/Units 11:53 17:00 05:36 Anion Gap 12.10 H (4.00-12.00) mmol/L BUN 30.5 H (9.0-27.0) mg/dL Est GFR (CKD-EPI) 40 L (>=60) BUN/Creatinine Ratio 23.46 H (12.00-20.00) Ratio Glucose 140 H (70-110) mg/dL POC Glucose (mg/dL) 140 H 146 H (70-110) mg/dL 05/07/24 Range/Units 05:50 Anion Gap (4.00-12.00) mmol/L BUN (9.0-27.0) mg/dL Est GFR (CKD-EPI) (>=60) BUN/Creatinine Ratio (12.00-20.00) Ratio Glucose (70-110) mg/dL POC Glucose (mg/dL) 128 H (70-110) mg/dL Assessment and Plan Assessment: _Acute kidney injury with chronic kidney disease: Continue hydration, consult nephrology apparently had seen nephrology in the other hospital as well and she continued to have slight decline in kidney function repeatedly. _Severe dizziness with history of Mnire disease with abnormal balance and gait will consult neurology at this point continue current management watch symptoms carefully patient need probably to move with help of PT OT and might require short-term rehab. _Severe cardiomyopathy with ejection fraction of 30-40 percentile Has been seeing cardiology regularly will resume home medication she was on spironolactone and lisinopril along with furosemide and all will create more damage to the kidney which will be held for now till her kidney function better. _A-fib with RVR: Pulse rate is doing better so far continue metoprolol tartrate 12.5 mg twice a day continue Eliquis 2.5 mg twice a day. _UTI with early sign of sepsis: Patient be on Rocephin 1 g daily waiting for the final culture. _Hyperlipidemia: Has been on rosuvastatin 10 mg a day switch in house to atorvastatin 40 mg daily. _Recurrent angina and atherosclerotic heart disease: Remain on amlodipine,_metoprolol, isosorbide mononitrate along with lisinopril resume home medication resume ANDRÉS when safe. _Debility with worsening mobility combined between cardiomyopathy, generalized weakness, Mnire disease, severe arthritis, severe degenerative disc disease with all of the above making patient not safe to ambulate and walk and have been having presyncope like and multiple episode of fall with no injury so far to be watched quite carefully will require PT OT titrate management gradually. _Hypertension: Up till now was on amlodipine, lisinopril, metoprolol along with spironolactone. _Previous history of TIA/CVA_: Has been on Plavix along with secondary prevention with cholesterol-lowering agent along with hypertensive management. _History of gout: With no flareup remain on allopurinol 100 mg daily. Still on colchicine on as-needed basis had apparently recent episode. _Hyperglycemia with no episode of diabetes so far no full diagnosis continue Accu-Chek with sliding scales coverage. _GI prophylaxis: Remain on pantoprazole. _DVT prophylaxis: Remain on anticoagulation with Eliquis. CODE STATUS: Full code.
[2024-05-07 17:23] LABS: Glucose,Whole Blood 153 mg/dL (70-110)
[2024-05-07] MEDS: ACETAMINOPHEN TAB 325 MG TAB PO PRN (17:31)
[2024-05-07 20:38] LABS: Glucose,Whole Blood 200 mg/dL (70-110)
[2024-05-08 06:30] LABS: Glucose,Whole Blood 105 mg/dL (70-110)
[2024-05-08 08:15] VITALS: RESP 16
--- NOTE | 2024-05-08 12:36 | CDI ---
Documentation Clarification Form Date: 05/08/2024 11:45:00 AM From: Vanita Kimbrough RN, CCDS Phone: [phone] Admit Date: 05/04/2024 01:51:00 PM Patient Name: Kirsty Castle Visit Number: [id number] Discharge Date: ATTENTION: The Clinical Documentation Specialists (CDI) and [facility] Coding Staff appreciate your assistance in clarifying documentation. Please respond to the clarification below the line at the bottom and electronically sign. The CDI & [facility] Coding staff will review the response and follow-up if needed. Please note: Queries are made part of the Legal Health Record. If you have any questions, please contact the author of this message via ITS. Doctor/Provider: Gaurav Obrien Unspecified CKD is document in the past medical history. Additional clarification regarding the stage of CKD is requested. History/Risk Factors: Coronary Artery Disease (CAD), Hyperlipidemia, Hypertension, CKD, Bilateral kidney cyst, Atrial fib, Patients Baseline Creatinine: 0.9 from August 2023 Clinical Indicators: 83-year-old female consult for acute kidney injury presented with generalized weakness and dizziness. VS 05/04 127/68 54 16 97.9 96 % RA 05/04 BUN 70 CR 1.99 GFR 22, BUN 72, CR 2.02 05/05: BUN 64.3 CR 1.8 Kidney US: No hydronephrosis, Left kidney atrophy Treatment: Dextrose/water 1,150 ML @ 75 ML/HR 05/04-05/05 Sodium Bicarbonate Tab 650 MG PO BID Avoid nephrotoxins Monitor renal function and urine output .9 % IV @ 75 MLS/HR Please clarify the stage of the CKD, if known: [ ] CKD Stage 1 [ ] CKD Stage 2 [ ] CKD Stage 3 [ ] CKD Stage 3a [ ] CKD Stage 3b [ ] CKD Stage 4 [ ] Other, please specify [ x] Unable to determine Reference: National Kid[employer] Stage 1 eGFR = 90 and kidney damage for =3 months Stage 2 eGFR 60-89 and kidney damage for =3 months Stage 3a eGFR 45-59 and kidney damage for =3 months Stage 3b eGFR 30-44 and kidney damage for =3 months Stage 4 eGFR 15-29 r and kidney damage for =3 months Stage 5 eGFR <15 and kidney damage for =3 months (Template Last revised: July 2023) MTDD
[2024-05-08 15:22] VITALS: BP 129/70; PULSE 81; TEMP 97.8
[2024-05-08 15:25] LABS: African American GFR (CKD) 50 (>60 ml/min/1.73 sqM); Anion Gap 7 mmol/L; Blood Urea Nitrogen 27 mg/dL (7-17); Calcium 8.7 mg/dL (8.4-10.2); Carbon Dioxide 22 mmol/L (22-30); Chloride 108 mmol/L (98-107); Glucose 103 mg/dL (74-99); Non-African American GFR(CKD) 43 (>60 ml/min/1.73 sqM); Potassium 3.8 mmol/L (3.5-5.1); Sodium 137 mmol/L (137-145)
--- NOTE | 2024-05-08 17:01 | P.PN ---
Subjective Progress Note Date: 05/07/24 05/07/2024:This is a telemedicine neurology follow-up performed today on 05/07/2024, and in coordination with Chayo Wray. Patient was initially seen by Dr. Alec Dooley. Please refer to his note for details. Patient is a 83-year-old female complaining of dizziness. Patient has positive orthostatics. CT head came back negative. Patient tells me that she is feeling "so-so", "good and bad". She states she feels "fci decent now". Today she has not been up, but yesterday she got up and did not feel dizzy. Patient does have history of previous ankle injury, collapsed right patient complains of some stiffness in the neck. Denies any dizziness on rolling over i n the bed. Patient states that she is just about to get to the bathroom. She is able to eat, not having nausea. Objective - Vital Signs Vital signs: Vital Signs Temp 97.5 F L 05/07/24 08:14 Pulse 63 05/07/24 11:49 Resp 14 05/07/24 08:14 BP 126/71 05/07/24 11:49 Pulse Ox 95 05/07/24 08:14 FiO2 Intake & Output 05/06/24 05/07/24 05/07/24 18:59 06:59 18:59 Intake Total 472 Balance 472 Intake: Oral 472 Other: Voiding Method Bedside Commode # Voids 0 1 - Exam On examination patient is alert and awake in no distress. Speech and language functions are normal. Cranial nerves are normal. On muscle strength testing, (right/left) banquet line cook 5/5, triceps 4/5, biceps 5/5, deltoid 4-/4-, hip flexion 4/3, ankle dorsiflexion and plantarflexion only checked on the left side which is normal. Patient did not let us check the right ankle because of her previous injury. - Labs CBC & Chem 7: 05/06/24 05:38 05/08/24 14:57 Labs: Abnormal Lab Results - Last 24 Hours (Table) 05/06/24 05/07/24 05/07/24 Range/Units 17:00 05:36 05:50 Anion Gap 12.10 H (4.00-12.00) mmol/L BUN 30.5 H (9.0-27.0) mg/dL Est GFR (CKD-EPI) 40 L (>=60) BUN/Creatinine Ratio 23.46 H (12.00-20.00) Ratio Glucose 140 H (70-110) mg/dL POC Glucose (mg/dL) 146 H 128 H (70-110) mg/dL 05/07/24 Range/Units 12:21 Anion Gap (4.00-12.00) mmol/L BUN (9.0-27.0) mg/dL Est GFR (CKD-EPI) (>=60) BUN/Creatinine Ratio (12.00-20.00) Ratio Glucose (70-110) mg/dL POC Glucose (mg/dL) 188 H (70-110) mg/dL Assessment and Plan Assessment: This is an 83-year-old woman who presented emergency department because of dizziness mostly with standing up and walking, generalized weakness and decreased appetite for the last 4 to 5 weeks. She has positive orthostatic vitals. Dizziness due to positive orthostatic hypotension Acute kidney insufficiency History of atrial fibrillation on Eliquis History of coronary artery disease status post CABG and subsequent stenting Chronic systolic heart failure with ejection fraction 40 with moderate to severe mitral regurgitation History of urinary tract infection Hypertension hyperlipidemia Valvular heart disease with moderate to severe MR. Arthritis Plan: CT of the head revealed no acute intracranial process or significant change from prior. Nonspecific white matter changes, likely secondary to chronic small vessel ischemic disease. Nurse reports that patient does not let orthostatic checked in the standing posture because of right ankle foot pain. Her dizziness is likely related to orthostatic hypotension, and perhaps moderate to severe MR. Cardiology on board. Recommend compression stocking. Nephrology has started on midodrine 5 mg 1 tablet 3 times daily for her orthostatic hypotension Cardiology is consulted Will defer the rest of the medical management to primary and other specialist. Neurologically clear.
--- NOTE | 2024-05-08 21:17 | P.PN ---
Subjective Patient is seen for follow-up for acute kidney injury. Renal function has improved with serum creatinine down to 1.1 mg/dL. No significant complaints today. Objective - Vital Signs Vital signs: Vital Signs Temp 97.8 F 05/08/24 15:00 Pulse 81 05/08/24 15:00 Resp 16 05/08/24 15:00 BP 129/70 05/08/24 15:00 Pulse Ox 93 L 05/08/24 15:00 FiO2 Intake & Output 05/08/24 05/08/24 05/09/24 06:59 18:59 06:59 Intake Total 118 Balance 118 Intake: Oral 118 Other: Voiding Method Bedside Commode # Voids 1 1 # Bowel Movements 0 - Exam Patient is awake, comfortable, no acute distress. Examination of the heart S1 and S2 Examination lungs bilateral breath sounds are heard Abdomen is soft nontender Examination lower extremity showed no significant edema - Labs CBC & Chem 7: 05/06/24 05:38 05/08/24 14:57 Labs: Abnormal Lab Results - Last 24 Hours (Table) 05/08/24 Range/Units 14:57 Chloride 108 H (98-107) mmol/L BUN 27 H (7-17) mg/dL Creatinine 1.16 H (0.52-1.04) mg/dL Glucose 103 H (74-99) mg/dL Assessment and Plan Assessment: 1. Acute kidney injury secondary to ATN secondary to hypotension, hypovolemia, further worsened with the use of diuretics and ANDRÉS inhibitor, and bradycardia. Renal function improved. Creatinine 1.1. Baseline creatinine near 1. No hydronephrosis noted on kidney ultrasound. UA benign. 2. Chronic systolic CHF with ejection fraction of 40% with moderate to severe mitral regurgitation. 3. Coronary artery disease status post CABG and subsequent stenting. 4. Orthostatic hypotension. Cortisol level not low. Blood pressures seem to have improved. 5. Metabolic acidosis secondary to acute kidney injury and IV fluids. Improved with bicarb drip. Now on oral bicarb. Plan: Stable for discharge from nephrology standpoint. Monitor labs as outpatient
--- NOTE | 2024-05-10 23:05 | P.DS ---
Providers Date of admission: 05/04/24 13:51 Attending physician: Lee Smart Consults: 05/03/24 22:42 Consult Physician Routine Consulting Provider: Julianna Landis Consult Reason/Comments: roberth Do you want consulting provider notified?: Yes Consult Physician Routine Consulting Provider: Gaurav Obrien Consult Reason/Comments: grant Do you want consulting provider notified?: Yes 05/04/24 21:24 Consult Physician Routine Consulting Provider: Alec Dooley Consult Reason/Comments: severe dizziness Do you want consulting provider notified?: Yes Primary care physician: Lee Smart [facility] Course: Final Diagnosis _Acute kidney injury with chronic kidney disease: Continue hydration, consult nephrology apparently had seen nephrology in the other hospital as well and she continued to have slight decline in kidney function repeatedly. _Severe dizziness with history of Mnire disease with abnormal balance and gait will consult neurology at this point continue current management watch symptoms carefully patient need probably to move with help of PT OT and might require short-term rehab. _Severe cardiomyopathy with ejection fraction of 30-40 percentile Has been seeing cardiology regularly will resume home medication she was on spironolactone and lisinopril along with furosemide and all will create more damage to the kidney which will be held for now till her kidney function better. _A-fib with RVR: Pulse rate is doing better so far continue metoprolol tartrate 12.5 mg twice a day continue Eliquis 2.5 mg twice a day. _UTI with early sign of sepsis: Patient be on Rocephin 1 g daily waiting for the final culture. _Hyperlipidemia: Has been on rosuvastatin 10 mg a day switch in house to atorvastatin 40 mg daily. _Recurrent angina and atherosclerotic heart disease: Remain on amlodipine,_metoprolol, isosorbide mononitrate along with lisinopril resume home medication resume ANDRÉS when safe. _Debility with worsening mobility combined between cardiomyopathy, generalized weakness, Mnire disease, severe arthritis, severe degenerative disc disease with all of the above making patient not safe to ambulate and walk and have been having presyncope like and multiple episode of fall with no injury so far to be watched quite carefully will require PT OT titrate management gradually. _Hypertension: Up till now was on amlodipine, lisinopril, metoprolol along with spironolactone. _Previous history of TIA/CVA_: Has been on Plavix along with secondary prevention with cholesterol-lowering agent along with hypertensive management. _History of gout: With no flareup remain on allopurinol 100 mg daily. Still on colchicine on as-needed basis had apparently recent episode. _Hyperglycemia with no episode of diabetes so far no full diagnosis continue Accu-Chek with sliding scales coverage. _GI prophylaxis: Remain on pantoprazole. _DVT prophylaxis: Remain on anticoagulation with Eliquis. CODE STATUS: Full code. Discharge Disposition Medical stable for DC home. Overall high risk for readmission due to her multiple chronic medical comorbidities. Patient has opted for outpatient physical therapy. Had normal urine culture and antibiotics were not given on discharge. Repeat blood work in the 2 to 3days on discharge. Follow up closely with PCP Dr Smart as well as nephrology. Hospital Course 83-year-old patient with longstanding history of atrial fibrillation, coronary artery disease, cardiomyopathy with ejection fraction 35-40 percentile, hypertension, hyperlipidemia, Mnire disease, chronic kidney disease, bilateral kidney cyst, chronic history of vertigo, history of anemia post blood transfusion, mild protein calorie malnutrition, chronic arthritis with severe problem with mobility who was hospitalized twice in the last 4 weeks at [facility] first time for 24 hours admitted on 04/02/2024 until 04/04/2024 for acute cystitis, A-fib with RVR, anemia, acute kidney injury and debility was treated and taking care of and sent home on 03/31/2024 ,She is return to the emergency department again 04/06 till 04/07/2024 for worsening shortness of breath and dyspnea with what seems to be elevated proBNP consistent with congestive heart failure along with A-fib with RVR and acute kidney injury was treated seen by [facility] hospitalist along with cardiology treated aggressive enough and was discharged home this time on 04/07/2024 on adjusted medical management. Noticed by the family that patient has not been doing well Complaining of generalized weakness lightheadedness and worsening dyspnea and shortness of breath very restless not been able to ambulate and walk and has been having problem with presyncope like symptoms along with worsening burning frequency urgency hesitancy and hematuria. She had total of 4 visit to the emergency department [place] last few weeks with workup coming to some degree not showing any major abnormality. This time found to have significant acute kidney injury with bun of 70 creatinine of 1.99 with UA showing very large amount of leukocyte Estrace along with white blood cell and red blood cell was diagnosed with possible acute urinary tract infection with early sepsis lactic acid is 1.5. Admitted to the hospital treated with IV ceftriaxone but found to have a negative urinalysis. Patient was evaluated by nephrology for the GRANT, with creatinine down to 1.16 from 2.02. Has been transitioned to oral sodium bicarbonate and cleared for DC home. Patient had worked with PT did well and would like to DC home and do the outpatient physical therapy at [facility] and information was provided. Will not need any further antibiotics on discharge. Please see medication reconciliation for a list of current medications. Thank you for allowing us to participate in the care of this patient. The impression and plan of care has been dictated by Melissa Burns, Nurse Practitioner as directed. Dr. Arun MD I have performed a history and physical examination and medical decision making of this patient, discussed the same with the dictator, and agree with the dictators assessment and plan as written, documented as a scribe. Based on total visit time, I have performed more than 50% of this visit. Patient Condition at Discharge: Fair Plan - Discharge Summary Discharge Rx Participant: No New Discharge Prescriptions: New Aspirin 81 mg PO DAILY #30 tab Sodium Bicarbonate Tab 650 mg PO BID #60 tab Metoprolol Tartrate [Lopressor] 12.5 mg PO BID #60 tab Midodrine [ProAmatine] 5 mg PO AC-TID #90 tab Continue Meclizine [Antivert] 12.5 mg PO TID PRN PRN Reason: Vertigo Isosorbide Mononitrate ER [Imdur] 30 mg PO DAILY #30 tab.er.24h allopurinoL 100 mg PO DAILY D-Mannose (Unknown Dose) 1 tab PO DAILY Cranberry (Unknown Dose) 1 tab PO DAILY Rosuvastatin [Crestor] 10 mg PO HS Clopidogrel [Plavix] 75 mg PO DAILY amLODIPine [Norvasc] 5 mg PO HS Colchicine [Colcrys] 0.6 mg PO DAILY Furosemide [Lasix] 40 mg PO DAILY Baclofen 5 mg PO TID PRN PRN Reason: Pain Pantoprazole Sodium [Protonix] 20 mg PO HS DULoxetine HCL [Cymbalta] 20 mg PO HS Albuterol Inhaler [Ventolin Hfa Inhaler] 2 puff INHALATION RT-Q6H PRN PRN Reason: Shortness Of Breath Ubidecarenone [Coenzyme Q10] 200 mg PO HS Apixaban [Eliquis] 2.5 mg PO BID Discontinued lisinopriL [Zestril] 10 mg PO DAILY Spironolactone [Aldactone] 12.5 mg PO DAILY Metoprolol Succinate [Toprol XL] 50 mg PO DAILY Discharge Medication List Meclizine [Antivert] 12.5 mg PO TID PRN 04/14/16 [History] Isosorbide Mononitrate ER [Imdur] 30 mg PO DAILY #30 tab.er.24h 02/23/21 [Rx] Baclofen 5 mg PO TID PRN 08/10/23 [History] Furosemide [Lasix] 40 mg PO DAILY 08/10/23 [History] allopurinoL 100 mg PO DAILY 08/10/23 [History] Albuterol Inhaler [Ventolin Hfa Inhaler] 2 puff INHALATION RT-Q6H PRN 05/04/24 [History] Apixaban [Eliquis] 2.5 mg PO BID 05/04/24 [History] Clopidogrel [Plavix] 75 mg PO DAILY 05/04/24 [History] Colchicine [Colcrys] 0.6 mg PO DAILY 05/04/24 [History] Cranberry (Unknown Dose) 1 tab PO DAILY 05/04/24 [History] D-Mannose (Unknown Dose) 1 tab PO DAILY 05/04/24 [History] DULoxetine HCL [Cymbalta] 20 mg PO HS 05/04/24 [History] Pantoprazole Sodium [Protonix] 20 mg PO HS 05/04/24 [History] Rosuvastatin [Crestor] 10 mg PO HS 05/04/24 [History] Ubidecarenone [Coenzyme Q10] 200 mg PO HS 05/04/24 [History] amLODIPine [Norvasc] 5 mg PO HS 05/04/24 [History] Aspirin 81 mg PO DAILY #30 tab 05/08/24 [Rx] Metoprolol Tartrate [Lopressor] 12.5 mg PO BID #60 tab 05/08/24 [Rx] Midodrine [ProAmatine] 5 mg PO AC-TID #90 tab 05/08/24 [Rx] Sodium Bicarbonate Tab 650 mg PO BID #60 tab 05/08/24 [Rx] Follow up Appointment(s)/Referral(s): Yohana Weiner MD [STAFF PHYSICIAN] - 05/16/24 9:30 am Lee Smart MD [Primary Care Provider] - 1-2 days Gaurav Obrien DO [STAFF PHYSICIAN] - 1 Week Ambulatory/Diagnostic Orders: Basic Metabolic Panel [LAB.AMB] Location: None Selected Complete Blood Count w/diff [LAB.AMB] Time Frame: 3 Days, Location: None Selected Magnesium [LAB.AMB] Location: None Selected Patient Instructions/Handouts: Weakness (ED), Weakness (DC), Hypomagnesemia (ED), Hypomagnesemia (DC) Activity/Diet/Wound Care/Special Instructions: [facility] - Address: [address] [place] [address] [address], [facility] [place] [address] - Patient call to make appointment FOLLOW UP SOONER IF WORSENING PROBLEMS OR CONCERNS. Discharge Disposition: HOME WITH HOME HEALTH SERVICES
== END 2024-05-08 16:20 | disposition home health service (06) | DRG 683 ==
LOC: EC 17:51 → 6NMEDSUR 22:57 → OBSVTOIN 05-04 13:51 → 6NMEDSUR 05-04 14:05
PROVIDERS: ADMIT Internal Medicine Geriatric Medicine; ATTEND Internal Medicine Geriatric Medicine
DX: N17.0 Acute kidney failure with tubular necrosis (principal); E44.1 Mild protein-calorie malnutrition; E87.20 Acidosis, unspecified; I13.0 Hypertensive heart and chronic kidney disease with heart failure and stage 1 through stage 4 chronic kidney disease, or unspecified chronic kidney disease; I50.22 Chronic systolic (congestive) heart failure; I42.9 Cardiomyopathy, unspecified; N26.1 Atrophy of kidney (terminal); I95.1 Orthostatic hypotension; I49.3 Ventricular premature depolarization; E78.5 Hyperlipidemia, unspecified; I48.0 Paroxysmal atrial fibrillation; I34.0 Nonrheumatic mitral (valve) insufficiency; E86.1 Hypovolemia; I25.118 Atherosclerotic heart disease of native coronary artery with other forms of angina pectoris; N18.9 Chronic kidney disease, unspecified; M19.90 Unspecified osteoarthritis, unspecified site; M10.9 Gout, unspecified; H81.09 Meniere's disease, unspecified ear; Z96.653 Presence of artificial knee joint, bilateral; Z86.16 Personal history of COVID-19; Z68.27 Body mass index [BMI] 27.0-27.9, adult; Z79.02 Long term (current) use of antithrombotics/antiplatelets; Z79.82 Long term (current) use of aspirin; Z79.01 Long term (current) use of anticoagulants; Z79.1 Long term (current) use of non-steroidal anti-inflammatories (NSAID); Z79.899 Other long term (current) drug therapy; Z86.73 Personal history of transient ischemic attack (TIA), and cerebral infarction without residual deficits; Z87.440 Personal history of urinary (tract) infections; Z90.710 Acquired absence of both cervix and uterus; Z95.1 Presence of aortocoronary bypass graft; Z95.5 Presence of coronary angioplasty implant and graft; Z88.0 Allergy status to penicillin; Z88.2 Allergy status to sulfonamides; Z82.49 Family history of ischemic heart disease and other diseases of the circulatory system
CPT/HCPCS: 36415; 51798; 70450; 71045; 76770; 80048; 80053; 81001; 82533; 83605; 83735; 84484; 85025; 85027; 85610; 85730; 87086; 93005; 96365; 99285